=== PATIENT | male | born 1945 | race Caucasian/White ===

== ENCOUNTER 2021-12-08 09:38 | Outpatient (REF) | payer MEDICARE, SELFPAY ==
[2021-12-08 10:47] LABS: Appearance Urine CLEAR; Color Urine YELLOW; Glucose Urine UA NEG (NEG); Leukocyte Esterase Urine NEG (NEG); Nitrite Urine NEG (NEG); PH 6.5 (5.0-8.0); Specific Gravity - Urine 1.025 (1.005-1.025); Urine Blood NEG (NEG); Urine Ketones NEG (NEG); Urine Protein TRACE MG/DL (NEG-TRACE)
[2021-12-08 10:58] LABS: Alanine Aminotransferase 13 U/L (0-40); Albumin Level 4.3 g/dL (3.5-5.0); Alkaline Phosphatase 59 U/L (39-117); Anion Gap 13 (12-20); Aspartate Amino Transferase 15 U/L (5-37); Bilirubin Total 0.6 mg/dL (0.0-1.0); Blood Urea Nitrogen 26 mg/dL (9-16); Calcium 9.8 mg/dL (8.4-10.2); Carbon Dioxide 28 mmol/L (22-29); Chloride 105 mmol/L (96-108); Cholesterol 138 mg/dL; Estimated Glomerular Filt Rate 50; Glucose Fasting 142 mg/dL (60-99); HDL Cholesterol 43 mg/dL; LDL Cholesterol Calculated 80 mg/dl; Potassium 4.6 mmol/L (3.3-5.1); Sodium 141 mmol/L (135-145); Total Protein 7.2 g/dL (6.5-8.0); Triglycerides 76 mg/dL
[2021-12-08 11:01] LABS: Creatinine Urine 164.17 mg/dL; Microalbum/Creatinine Ratio Ur 10.3 ug/mg cr
[2021-12-08 11:21] LABS: TSH reflex Free T4 0.96 uIU/mL (0.32-4.0)
== END 2021-12-08 09:39 | disposition home or self-care (01) ==
LOC: HO.WFDLDS 09:38
PROVIDERS: Visit Provider Family Medicine
DX: Z00.00 Encounter for general adult medical examination without abnormal findings (principal); E11.9 Type 2 diabetes mellitus without complications; I10 Essential (primary) hypertension
CPT/HCPCS: 36415; 80053; 80061; 81003; 82043; 84443

== ENCOUNTER 2022-09-05 08:42 | Outpatient (REF) | payer MEDICARE, SELFPAY ==
[2022-09-05 12:03] LABS: MANUAL DIFF FLAG NO
[2022-09-05 12:04] LABS: Basophils Percent Auto 0.4 % (0-2); Eosinophils Absolute Auto 0.4 X10*3/uL (0.0-0.4); Hematocrit 40.8 % (42.0-52.0); Imm Gran Abs Auto 0.02 X10*3/uL (0.00-0.03); Imm Gran Pct Auto 0.2 % (0.0-0.4); Lymphocytes Absolute Auto 2.2 X10*3/uL (1.2-4.9); Lymphocytes Percent Auto 27.3 % (20-40); Mean Corpuscular HGB Conc 31.9 g/dl (31.0-36.0); Mean Corpuscular Volume 90.9 fL (80.0-98.0); Mean Platelet Volume 9.7 fL (9.4-12.4); Monocytes Absolute Auto 0.8 X10*3/uL (0.1-1.2); Monocytes Percent Auto 9.5 % (2-11); Neutrophils Absolute Auto 4.6 x10*3/uL (2.0-8.3); Neutrophils Percent Auto 57.6 % (45-73); Platelet Count 309 X10*3/uL (160-400); Red Blood Count 4.49 X10*6/uL (4.60-5.80); Red Cell Distribution Width 13.6 % (11.0-16.0)
[2022-09-05 12:34] LABS: Alanine Aminotransferase 12 U/L (0-40); Albumin Level 4.2 g/dL (3.5-5.0); Alkaline Phosphatase 57 U/L (39-117); Anion Gap 16 (12-20); Aspartate Amino Transferase 15 U/L (5-37); Bilirubin Total 0.3 mg/dL (0.0-1.0); Blood Urea Nitrogen 25 mg/dL (9-16); Carbon Dioxide 24 mmol/L (22-29); Chloride 106 mmol/L (96-108); Estimated Glomerular Filt Rate 52; Glucose Random 139 mg/dL (60-115); Potassium 5.3 mmol/L (3.3-5.1); Sodium 141 mmol/L (135-145); Total Protein 7.2 g/dL (6.5-8.0)
== END 2022-09-05 08:43 | disposition home or self-care (01) ==
LOC: HO.WFDLDS 08:42
PROVIDERS: Visit Provider Family Medicine
DX: Z01.818 Encounter for other preprocedural examination (principal)
CPT/HCPCS: 36415; 80053; 85025

== ENCOUNTER 2023-01-23 08:10 | Outpatient (REF) | payer MEDICARE, SELFPAY ==
[2023-01-23 11:45] LABS: Appearance Urine Clear; Color Urine Yellow; Glucose Urine UA Negative (Negative); Leukocyte Esterase Urine Negative (Negative); Nitrite Urine Negative (Negative); PH 5.5 (5.0-9.0); Urine Blood Negative (Negative); Urine Ketones Negative (Negative); Urine Protein Negative (Neg-Trace)
[2023-01-23 11:48] LABS: MANUAL DIFF FLAG NO
[2023-01-23 12:04] LABS: Basophils Absolute Auto 0.1 X10*3/uL (0.0-0.2); Basophils Percent Auto 0.6 % (0-2); Eosinophils Absolute Auto 0.3 X10*3/uL (0.0-0.4); Eosinophils Percent Auto 4.2 % (0-4); Hematocrit 37.9 % (42.0-52.0); Hemoglobin 12.4 g/dl (14.0-18.0); Imm Gran Abs Auto 0.02 X10*3/uL (0.00-0.03); Imm Gran Pct Auto 0.2 % (0.0-0.4); Lymphocytes Absolute Auto 2.1 X10*3/uL (1.2-4.9); Lymphocytes Percent Auto 26.2 % (20-40); Mean Corpuscular HGB Conc 32.7 g/dl (31.0-36.0); Mean Corpuscular Hemoglobin 29.5 pg (27.0-33.0); Mean Corpuscular Volume 90.2 fL (80.0-98.0); Mean Platelet Volume 9.4 fL (9.4-12.4); Monocytes Absolute Auto 0.7 X10*3/uL (0.1-1.2); Monocytes Percent Auto 8.1 % (2-11); Neutrophils Absolute Auto 4.9 x10*3/uL (2.0-8.3); Neutrophils Percent Auto 60.7 % (45-73); Platelet Count 288 X10*3/uL (160-400); White Blood Count 8.1 X10*3/uL (4.8-10.8)
[2023-01-23 12:09] LABS: Creatinine Urine 113.72 mg/dL
[2023-01-23 12:11] LABS: Microalbum/Creatinine Ratio Ur 6.1 ug/mg cr
[2023-01-23 12:47] LABS: Estimated Average Glucose 174 mg/dL; Hemoglobin A1c % 7.7 %
[2023-01-23 13:07] LABS: Prostate Specific Antigen Scr 0.92 ng/mL (<0.05-4.0); TSH reflex Free T4 1.09 uIU/mL (0.32-4.0)
[2023-01-23 13:08] LABS: Anion Gap 10 (12-20)
[2023-01-23 13:13] LABS: Alanine Aminotransferase 13 U/L (0-40); Albumin Level 4.1 g/dL (3.5-5.0); Alkaline Phosphatase 55 U/L (39-117); Aspartate Amino Transferase 15 U/L (5-37); Bilirubin Total 0.6 mg/dL (0.0-1.0); Blood Urea Nitrogen 23 mg/dL (9-16); Calcium 9.4 mg/dL (8.4-10.2); Carbon Dioxide 27 mmol/L (22-29); Chloride 108 mmol/L (96-108); Cholesterol 146 mg/dL; Estimated Glomerular Filt Rate 52; Glucose Fasting 139 mg/dL (60-99); HDL Cholesterol 40 mg/dL; LDL Cholesterol Calculated 85 mg/dl; Potassium 4.9 mmol/L (3.3-5.1); Sodium 140 mmol/L (135-145); Total Protein 6.8 g/dL (6.5-8.0); Triglycerides 107 mg/dL
== END 2023-01-23 08:11 | disposition home or self-care (01) ==
LOC: HO.WFDLDS 08:10
PROVIDERS: Visit Provider Family Medicine
DX: Z00.00 Encounter for general adult medical examination without abnormal findings (principal); Z12.5 Encounter for screening for malignant neoplasm of prostate; I10 Essential (primary) hypertension; R73.01 Impaired fasting glucose
CPT/HCPCS: 36415; 80053; 80061; 81003; 82043; 83036; 84153; 84443; 85025

== ENCOUNTER 2023-05-23 07:01 | Outpatient (REF) | payer MEDICARE, SELFPAY ==
[2023-05-23 11:33] LABS: MANUAL DIFF FLAG NO
[2023-05-23 11:52] LABS: Basophils Percent Auto 0.5 % (0-2); Eosinophils Absolute Auto 0.6 X10*3/uL (0.0-0.4); Hematocrit 37.4 % (42.0-52.0); Hemoglobin 11.9 g/dl (14.0-18.0); Imm Gran Abs Auto 0.02 X10*3/uL (0.00-0.03); Imm Gran Pct Auto 0.3 % (0.0-0.4); Immature Retic Fraction 11.6 % (2.3-13.4); Lymphocytes Absolute Auto 1.9 X10*3/uL (1.2-4.9); Lymphocytes Percent Auto 25.5 % (20-40); Mean Corpuscular HGB Conc 31.8 g/dl (31.0-36.0); Mean Corpuscular Hemoglobin 29.5 pg (27.0-33.0); Mean Corpuscular Volume 92.8 fL (80.0-98.0); Mean Platelet Volume 9.8 fL (9.4-12.4); Monocytes Absolute Auto 0.7 X10*3/uL (0.1-1.2); Neutrophils Absolute Auto 4.3 x10*3/uL (2.0-8.3); Neutrophils Percent Auto 56.7 % (45-73); Platelet Count 309 X10*3/uL (160-400); Red Blood Count 4.03 X10*6/uL (4.60-5.80); Red Cell Distribution Width 14.1 % (11.0-16.0); Retic HGB Equivalent 35.2 pg (30.0-35.0); Reticulocyte Percent 2.4 % (0.5-1.8); Reticulocytes Absolute 0.097 X10*6/uL (0.026-0.095); White Blood Count 7.5 X10*3/uL (4.8-10.8)
[2023-05-23 16:17] LABS: Folate 15.6 ng/mL (> or = 4.0); Vitamin B12 340 pg/mL (200-900)
[2023-05-23 20:08] LABS: Iron 57 mcg/dL (45-160); Percent Iron Saturation 19 % (15-50); Total Iron Binding Capacity 301 mcg/dL (228-428); Unsaturated Iron Binding 244 ug/dL
== END 2023-05-23 07:02 | disposition home or self-care (01) ==
LOC: HO.WFDLDS 07:01
PROVIDERS: Visit Provider Family Medicine
DX: Z00.00 Encounter for general adult medical examination without abnormal findings (principal); D64.9 Anemia, unspecified; E53.8 Deficiency of other specified B group vitamins
CPT/HCPCS: 36415; 82607; 82746; 83540; 85025; 85045

== ENCOUNTER 2023-05-29 16:21 | Outpatient (AMB) | payer MEDICARE, SELFPAY ==
--- NOTE | 2023-05-29 16:28 | A.OFFPC_ITS ---
Vital Signs 05/29/23 16:38 Height 5 ft 10 in Weight 180 lb 3 oz BMI 25.9 BP 132/78 Blood Pressure Location Lt brachial Position Sitting Respiration 14 Pulse 89 Pulse Source Pulse Oximeter Temp 98.9 F Temp Source Temporal Artery Scan Pulse Oximetry (%) 98 Oxygen Delivery Method Room Air Intake Visit Reasons: f/u diabetes and anemia Intake Note: Patient is here to follow up regarding diabetes and anemia. It Support Engineer Required: No Accompanied by: Self / Same As Patient Allergies lisinopril Allergy (Mild, Verified 05/29/23 16:36) Cough Tobacco use date assessed: 01/10/23 Fall risk assessment: No Falls in past year Last assessed Fall Risk: 05/29/23 Dental Screening Dental Screen Date: 05/29/23 Did you have a dental visit in the last 12 months?: Yes Did you have a dental problem in the last 6 months where you did not have access to dental care?: No Was dental information given to patient?: Patient has dentist HPI f/u diabetes and anemia HPI Details 78 y/o male presents to f/u diabetes and anemia. Had added Trulicity to his medication regimen 02/21/23. Last A1c 01/23/23 was 7.7%. A1c today 05/29/23 is 9.4%. Labs were drawn 05/23/23. Reviewed labs with pt. Ongoing mild anemia. Iron within normal limits. [facility] Medical History Type 2 diabetes mellitus without complications Surgical History No pertinent past surgical history Family History Mother Hyperlipidemia Father Brain cancer Social History Housing: House Patient Tobacco Use Status: Never used Tobacco e-Cigarette/Vaping Use: Never Used Second Hand Smoke Exposure: No service: No Current occupational status: retired Current occupational exposures/hazards: No Cognitive needs: No Hearing needs: No Vision needs: No Questionnaire Thrive Questionnaire Date Thrive assessed: 10/18/22 STEPHEN-7 AMB Questionnaire STEPHEN-7 Date STEPHEN - 7 assessed: 06/07/22 Source: Developed by Drs. Christo Woodard, Mesha Fong, Brando Winn and colleagues, with an educational josee from [employer] Review of Systems Const Denies chills, Denies fatigue, Denies fever(s), Denies headache(s) and Denies weakness ENT Denies dizziness and Denies headache(s) Card Denies dyspnea Resp Denies cough, Denies dyspnea, Denies wheezing and Denies other (shortness of breath) Musc Denies numbness and Denies tingling Neuro Denies dizziness, Denies headache(s), Denies numbness, Denies tingling and Denies weakness Psych Denies anxiety and Denies depression Endo Denies fatigue Aller/Immun Denies wheezing Physical exam (Primary Care) Vital Signs: Last Vital Signs Temp 98.9 F 05/29/23 16:38 Pulse 89 05/29/23 16:38 Resp 14 05/29/23 16:38 BP 132/78 05/29/23 16:38 Pulse Ox 98 05/29/23 16:38 Oxygen Delivery Method Room Air 05/29/23 16:38 BMI result Body Mass Index 25.9 Tobacco/Smoking Status: Tobacco use Status Tobacco use date assessed 01/10/23 05/29/23 16:30 Patient Tobacco Use Status Never used Tobacco 05/29/23 16:30 e-Cigarette/Vaping Use Never Used 05/29/23 16:30 Thrive Assessment: Date of Thrive Assessment Date Thrive assessed 10/18/22 05/29/23 16:30 Const General: well developed; No acute distress Nutritional Appearance: well nourished Orientation/consciousness: patient oriented x3 [facility] Head: Yes normocephalic and Yes atraumatic Eyes General: appearance normal, both eyes and all related structures Pupils: Equal, round and reactive pupils present EOM: EOMs intact bilaterally Resp Effort & Inspection: normal respiratory effort Neuro General: patient oriented x3 and gait normal Cranial nerves: Yes Equal, round and reactive pupils present Psych Affect: normal affect Assessment and Plan Assessment & Plan (1) Mild anemia: Code(s): D64.9 - Anemia, unspecified Plan: still has mild anemia denies bleeding will refer to Hematology Oncology (2) Diabetes: Code(s): E11.9 - Type 2 diabetes mellitus without complications Plan: A1c has continued to rise, now 9.4%. goal is less than 7.0% continue metformin and glipizide. Start Trulicity follow-up in 1 month (3) Poison stephany: Code(s): L23.7 - Allergic contact dermatitis due to plants, except food Plan: he can use hydrocortisone cream cool compresses and showers clean clothes and tools Medications: New dulaglutide 0.75 mg (0.5 mL) subcut QWEEK 2 mL 2RF 28 days Coding Level of Care Code Est Pt Level 4 (42328) Diagnoses Mild anemia D64.9 Diabetes E11.9 Poison stephany L23.7
[2023-05-29 16:38] VITALS: BP 132/78; PULSE 89; RESP 14; TEMP 37.2; O2SAT 98; BMI 25.9
== END 2023-05-29 17:10 | disposition home or self-care (01) ==
PROVIDERS: PCP Family Medicine; Visit Provider Family Medicine
DX: D64.9 Anemia, unspecified (principal); E11.9 Type 2 diabetes mellitus without complications; L23.7 Allergic contact dermatitis due to plants, except food
CPT/HCPCS: 99214

== ENCOUNTER → 2023-06-11 09:21 | Outpatient (BNVA) | payer SELFPAY | PROVIDERS: PCP Family Medicine; Visit Provider Physician Assistant Medical | DX: Z02.79 Encounter for issue of other medical certificate (principal) ==

== ENCOUNTER 2023-07-02 16:27 | Outpatient (AMB) | payer MEDICARE, SELFPAY ==
[2023-07-02 16:32] VITALS: BP 130/70; PULSE 87; RESP 16; O2SAT 97; BMI 26.0
--- NOTE | 2023-07-02 16:32 | MHC.PC.OV ---
Vital Signs 07/02/23 16:32 Height 5 ft 10 in Weight 181 lb 2 oz BMI 26.0 BP 130/70 Blood Pressure Location Lt brachial Position Sitting Respiration 16 Pulse 87 Pulse Source Pulse Oximeter Pulse Oximetry (%) 97 Oxygen Delivery Method Room Air Intake Visit Reasons: f/u diabetes Intake Note: Patient is here for follow up on his diabetes. Allergies lisinopril Allergy (Mild, Verified 07/02/23 16:33) Cough Tobacco use date assessed: 07/02/23 Fall risk assessment: No Falls in past year Last assessed Fall Risk: 07/02/23 Dental Screening Dental Screen Date: 07/02/23 Did you have a dental visit in the last 12 months?: No Did you have a dental problem in the last 6 months where you did not have access to dental care?: No Was dental information given to patient?: Patient declined HPI f/u diabetes HPI Details 78 y/o male presents to f/u diabetes. Last A1c had climbed to 9.4%. Had started him on Trulicity. A1c today 07/02/23 is 8.3. He continues metformin and glipizide but he reports he had been unable to do the Trulicity due to insurance issues. He reports he is up to date with his eye exams. He denies any neuropathy. [facility] Medical History Type 2 diabetes mellitus without complications Surgical History No pertinent past surgical history Family History Mother Hyperlipidemia Father Brain cancer Social History Housing: House Patient Tobacco Use Status: Never used Tobacco e-Cigarette/Vaping Use: Never Used Second Hand Smoke Exposure: No service: No Current occupational status: retired Current occupational exposures/hazards: No Cognitive needs: No Hearing needs: No Vision needs: No Questionnaire Thrive Questionnaire Date Thrive assessed: 10/18/22 STEPHEN-7 AMB Questionnaire STEPHEN-7 Date STEPHEN - 7 assessed: 06/07/22 Source: Developed by Drs. Christo Woodard, Mesha Fong, Brando Winn and colleagues, with an educational josee from [employer]. Physical exam (Primary Care) Vital Signs: Last Vital Signs Pulse 87 07/02/23 16:32 Resp 16 07/02/23 16:32 BP 130/70 07/02/23 16:32 Pulse Ox 97 07/02/23 16:32 Oxygen Delivery Method Room Air 07/02/23 16:32 BMI result Body Mass Index 26.0 Tobacco/Smoking Status: Tobacco use Status Tobacco use date assessed 07/02/23 07/02/23 16:43 Patient Tobacco Use Status Never used Tobacco 07/02/23 16:43 e-Cigarette/Vaping Use Never Used 07/02/23 16:43 Thrive Assessment: Date of Thrive Assessment Date Thrive assessed 10/18/22 07/02/23 16:43 Results AMB Hemoglobin A1c AMB Hemoglobin A1c 8.3 % Last Edit by Autumn Anthony CMA on 07/02/23 16:55 Results Reviewed Results Reviewed: Laboratory Last Values Hgb A1c (Clinic) 8.3 % (4.0-6.0) H 07/02/23 16:53 Assessment and Plan Assessment & Plan (1) Diabetes: Code(s): E11.9 - Type 2 diabetes mellitus without complications Plan: A1c improved from 9.4% to 8.3% on metformin and glipizide. Goal is less than 7.0% Significantly improved though he is still poorly controlled Currently will increase glipizide to 10 mg daily And continue metformin. Work at diabetic diet lower in sugars and starches. He was unable to get Dulaglutide (generic [facility]) due to insurance declining to pay for it. Will try other medications if he is not at goal with above regimen Orders: Orders AMB Hemoglobin A1c Today Z13.9 - Encounter for screening, unspecified Medications: Changed From glipizide ER 7.5 mg (1.5 x 5 mg) PO DAILY 30 days 45 tabs 2RF To glipizide ER 10 mg PO DAILY 30 tabs 2RF 30 days Refilled metformin 1000 mg AM, 500 mg midday, 1000 mg PM. orally 3 times a day; 225 tabs 2RF 90 days Discontinued dulaglutide Discontinued Reason: More recent result 0.75 mg (0.5 mL) subcut QWEEK 28 days 2 mL 2RF Coding Level of Care Code Est Pt Level 3 (64835) Diagnoses Diabetes E11.9
== END 2023-07-02 17:20 | disposition home or self-care (01) ==
PROVIDERS: PCP Family Medicine; Visit Provider Family Medicine
DX: E11.9 Type 2 diabetes mellitus without complications (principal)
CPT/HCPCS: 83036; 99213

== ENCOUNTER 2023-10-09 09:16 | Outpatient (AMB) | payer MEDICARE, SELFPAY ==
--- NOTE | 2023-10-09 09:32 | MHC.PC.OV ---
Vital Signs 10/09/23 09:33 Height 5 ft 10 in Weight 186 lb BMI 26.7 BP 150/70 H Blood Pressure Location Rt brachial Position Sitting Respiration 13 Pulse 96 Pulse Source Pulse Oximeter Pulse Oximetry (%) 97 Oxygen Delivery Method Room Air Intake Visit Reasons: f/u diabetes, ongoing cough Intake Note: Patient is here for a diabetic follow up and also have a cough x18 days. Patient reports he has no other symptoms. The cough is hard and aches his muscles from coughing. Laser/Electro Optics Technician Required: No Allergies lisinopril Allergy (Mild, Verified 10/09/23 09:37) Cough Tobacco use date assessed: 07/02/23 HPI f/u diabetes, ongoing cough HPI Details 78 y/o male presents to f/u diabetes. Last A1c 07/02/23 8.3%. A1c today 10/09/23 is 8.5%. He is on metformin, glipizide 10mg. He had been unable to obtain generic Trulicity due to insurance issues. Pt reports a cough x18 days. He denies any other symmptoms. [facility] Medical History Type 2 diabetes mellitus without complications Surgical History No pertinent past surgical history Family History Mother Hyperlipidemia Father Brain cancer Social History (Updated 10/09/23 @ 09:39 by Prerna Delgadillo CMA) Household Members: Spouse Housing: House Alcohol intake: current Alcohol intake frequency: a few times a month Alcohol type: wine Patient Tobacco Use Status: Never used Tobacco e-Cigarette/Vaping Use: Never Used Second Hand Smoke Exposure: No service: No Current occupational status: retired Current occupational exposures/hazards: No Sexual orientation: Unable to collect Gender identity: Unable to collect Cognitive needs: No Hearing needs: No Vision needs: No Questionnaire PHQ-9 Over the last 2 weeks, how often have you been bothered by any of the following problems? 1. Little interest or pleasure in doing things: not at all 2. Feeling down, depressed, or hopeless: not at all 3. Trouble falling or staying asleep, or sleeping too much: not at all 4. Feeling tired or having little energy: not at all 5. Poor appetite or overeating: not at all 6. Feeling bad about yourself - or that you are a failure or have let yourself or your family down: not at all 7. Trouble concentrating on things, such as reading the newspaper or watching television: not at all 8. Moving or speaking so slowly that other people could have noticed. Or the opposite - being so fidgety or restless that you have been moving around a lot more than usual: not at all 9. Thoughts that you would be better off or of hurting yourself in some way: not at all Total score: 0 Depression Screening Interpretation: Negative Depression Screening Done: Yes 55716 - PHQ-9 Billing: Yes Source: Developed by Drs. Christo Woodard, Mesha Fong, Brando Winn and colleagues, with an educational josee from [email or web address]. Thrive Questionnaire Date Thrive assessed: 10/18/22 AUDIT C Alcohol Use Questionnaire (AUDIT-C) 1. How often do you have a drink containing alcohol?: Monthly or less 2. How many drinks containing alcohol do you have on a typical day when you are drinking?: 1 or 2 3. How often do you have six or more drinks on one occasion?: Never Total Score: 1 STEPHEN-7 AMB Questionnaire STEPHEN-7 Date STEPHEN - 7 assessed: 10/09/23 Feeling nervous, anxious, or on edge: 0 = Not at all Not being able to stop or control worryin = Not at all Worrying too much about different things: 0 = Not at all Trouble relaxin = Not at all Being so restless that it is hard to sit still: 0 = Not at all Becoming easily annoyed or irritable: 0 = Not at all Feeling afraid as if something awful might happen: 0 = Not at all Total STEPHEN-7 score (0-4 normal; 5-9 mild; 10-14 moderate; 15-21 severe): 0 Source: Developed by Drs. Chrisot Woodard, Mesha Fong, Brando Winn and colleagues, with an educational josee from [email or web address]. STEPHEN-7 Assessment Billing STEPHEN-7 Assessment Tool: STEPHEN-7 Assessment 52958 Review of Systems Const Denies chills, Denies fatigue, Denies fever(s), Denies headache(s) and Denies weakness ENT Denies dizziness and Denies headache(s) Card Denies dyspnea Resp Reports cough, Denies dyspnea and Denies wheezing Musc Denies numbness and Denies tingling Neuro Denies dizziness, Denies headache(s), Denies numbness, Denies tingling and Denies weakness Psych Denies anxiety and Denies depression Endo Denies fatigue Aller/Immun Denies wheezing Physical exam (Primary Care) Vital Signs: Last Vital Signs Pulse 96 10/09/23 09:33 Resp 13 10/09/23 09:33 BP 150/70 H 10/09/23 09:33 Pulse Ox 97 10/09/23 09:33 Oxygen Delivery Method Room Air 10/09/23 09:33 BMI result Body Mass Index 26.7 Tobacco/Smoking Status: Tobacco use Status Tobacco use date assessed 07/02/23 10/09/23 09:40 Patient Tobacco Use Status Never used Tobacco 10/09/23 09:40 e-Cigarette/Vaping Use Never Used 10/09/23 09:40 PHQ-9: PHQ-9 Score PHQ-9: Total score 0 10/09/23 10:03 Depression Screening Interpretation: Negative Thrive Assessment: Date of Thrive Assessment Date Thrive assessed 10/18/22 10/09/23 09:40 Const General: well developed; No acute distress Nutritional Appearance: well nourished Orientation/consciousness: patient oriented x3 [facility] Head: Yes normocephalic and Yes atraumatic Eyes General: appearance normal, both eyes and all related structures Pupils: Equal, round and reactive pupils present EOM: EOMs intact bilaterally Resp Effort & Inspection: normal respiratory effort Auscultation: clear to auscultation bilaterally Cardio Rate: regular rate Rhythm: regular rhythm Heart sounds: S1 normal heart sound present, S2 normal heart sound present, no gallops, no murmurs and no rubs Neuro General: patient oriented x3 and gait normal Cranial nerves: Yes Equal, round and reactive pupils present Psych Affect: normal affect Results AMB Hemoglobin A1c AMB Hemoglobin A1c 8.5 % Last Edit by Prerna Delgadillo CMA on 10/09/23 09:49 Results Reviewed Results Reviewed: Laboratory Last Values Hgb A1c (Clinic) 8.5 % (4.0-6.0) H 10/09/23 09:48 Assessment and Plan Assessment & Plan (1) Diabetes: Code(s): E11.9 - Type 2 diabetes mellitus without complications Plan: Still?uncontrolled?on?metformin?and?increase?of?glipizide?at?last?visit. Insurance?did?not?cover?Trulicity Will?add?Januvia (2) Cough: Code(s): R05.9 - Cough, unspecified Plan: Cough?for?the?past?14?days.??Lungs?are?clear. Possible?allergen?or?irritant Try?humidified?air?and?Zyrtec Can?completely?rule?out?COVID/flu/RSV Swab?sent?to?lab (3) HTN (hypertension): Code(s): I10 - Essential (primary) hypertension Plan: Blood?pressure?is?high?today?but?patient?has?had?significant?cough No?changes?to?his?medication?regimen?today. Orders: Orders AMB Hemoglobin A1c Today Z13.9 - Encounter for screening, unspecified SARS-CoV2/FLU/RSV Today R05.9 - Cough, unspecified, Z20.822 - Contact with and (suspected) exposure to COVID-19 Medications: New sitagliptin phosphate (Januvia) 50 mg PO DAILY 30 tabs 2RF 30 days Coding Level of Care Code Est Pt Level 4 (33915) Diagnoses Diabetes E11.9 Cough R05.9 HTN (hypertension) I10 Additional Codes STEPHEN-7 Assessment Billing - STEPHEN-7 Assessment Tool: STEPHEN-7 Assessment [id number] ([id number])
[2023-10-09 09:33] VITALS: BP 150/70; PULSE 96; RESP 13; O2SAT 97; BMI 26.7
== END 2023-10-09 10:17 | disposition home or self-care (01) ==
PROVIDERS: PCP Family Medicine; Visit Provider Family Medicine
DX: E11.9 Type 2 diabetes mellitus without complications (principal); R05.9 Cough, unspecified; I10 Essential (primary) hypertension; Z13.9 Encounter for screening, unspecified
CPT/HCPCS: 83036; 99214

== ENCOUNTER 2023-10-09 10:19 | Outpatient (REF) | payer MEDICARE, SELFPAY ==
[2023-10-09 16:14] LABS: Influenza A PCR NEGATIVE (Negative); Influenza B PCR NEGATIVE (Negative); Resp Syncy Virus RNA Qual PCR NEGATIVE (Negative); SARS COV2 PCR INHOUSE NEGATIVE (Negative)
== END 2023-10-09 10:20 | disposition home or self-care (01) ==
LOC: HO.LAB 10:19
PROVIDERS: Visit Provider Family Medicine
DX: R05.9 Cough, unspecified (principal); Z20.822 Contact with and (suspected) exposure to COVID-19
CPT/HCPCS: 0241U

== ENCOUNTER 2024-01-29 10:28 | Outpatient (AMB) | payer MEDICARE, SELFPAY ==
--- NOTE | 2024-01-29 10:53 | A.OFFPC_ITS ---
Vital Signs 01/29/24 10:54 Height 5 ft 10 in Weight 181 lb 6 oz BMI 26.0 BP 142/80 H Blood Pressure Location Lt brachial Position Sitting Pulse 63 Pulse Source Pulse Oximeter Pulse Oximetry (%) 97 Oxygen Delivery Method Room Air Intake Visit Reasons: f/u diabetes Intake Note: Patient is here to follow up on diabetes, and hypertension. Patient would like to talk about Januvia prescription, and he is looking to get a discount from [employer]. Allergies lisinopril Allergy (Mild, Verified 01/29/24 10:57) Cough Tobacco use date assessed: 01/29/24 Fall risk assessment: No Falls in past year Last assessed Fall Risk: 01/29/24 Dental Screening Dental Screen Date: 01/29/24 Did you have a dental visit in the last 12 months?: No Did you have a dental problem in the last 6 months where you did not have access to dental care?: No Was dental information given to patient?: Patient declined HPI f/u diabetes HPI Details 79 y/o male presents to f/u diabetes. A1c today 01/29/24 is 8.9%. He is on glipizide 10mg, metformin, sitagliptin 50mg daily. Insurance had not covered Trulicity so had added Januvia last office visit. 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 Blood pressure today 142/80. He is on losartan 100mg daily. [facility] Medical History Type 2 diabetes mellitus without complications Surgical History No pertinent past surgical history Family History Mother Hyperlipidemia Father Brain cancer Social History Household Members: Spouse Housing: House Alcohol intake: current Alcohol intake frequency: a few times a month Alcohol type: wine Patient Tobacco Use Status: Never used Tobacco e-Cigarette/Vaping Use: Never Used Second Hand Smoke Exposure: No service: No Current occupational status: retired Current occupational exposures/hazards: No Sexual orientation: Unable to collect Gender identity: Unable to collect Cognitive needs: No Hearing needs: No Vision needs: No Questionnaire Thrive Questionnaire Date Thrive assessed: 10/18/22 STEPHEN-7 AMB Questionnaire STEPHEN-7 Date STEPHEN - 7 assessed: 10/09/23 Source: Developed by Drs. Christo Woodard, Mesha Fong, Brando Winn and colleagues, with an educational josee from [employer]. Review of Systems Const Denies chills, Denies fatigue, Denies fever(s), Denies headache(s) and Denies weakness ENT Denies dizziness and Denies headache(s) Card Denies dyspnea Resp Denies cough, Denies dyspnea, Denies wheezing and Denies other (shortness of breath) Musc Denies numbness and Denies tingling Neuro Denies dizziness, Denies headache(s), Denies numbness, Denies tingling and Denies weakness Psych Denies anxiety and Denies depression Endo Denies fatigue Aller/Immun Denies wheezing Physical exam (Primary Care) Vital Signs: Last Vital Signs Pulse 63 01/29/24 10:54 BP 142/80 H 01/29/24 10:54 Pulse Ox 97 01/29/24 10:54 Oxygen Delivery Method Room Air 01/29/24 10:54 BMI result Body Mass Index 26.0 Tobacco/Smoking Status: Tobacco use Status Tobacco use date assessed 01/29/24 01/29/24 11:02 Patient Tobacco Use Status Never used Tobacco 01/29/24 11:02 e-Cigarette/Vaping Use Never Used 01/29/24 11:02 Thrive Assessment: Date of Thrive Assessment Date Thrive assessed 10/18/22 01/29/24 11:02 Const General: well developed; No acute distress Nutritional Appearance: well nourished Orientation/consciousness: patient oriented x3 [facility] Head: Yes normocephalic and Yes atraumatic Eyes General: appearance normal, both eyes and all related structures Pupils: Equal, round and reactive pupils present EOM: EOMs intact bilaterally Resp Effort & Inspection: normal respiratory effort Neuro General: patient oriented x3 and gait normal Cranial nerves: Yes Equal, round and reactive pupils present Psych Affect: normal affect Assessment and Plan Assessment & Plan (1) Diabetes: Code(s): E11.9 - Type 2 diabetes mellitus without complications Plan: A1c?has?climbed?from?8.5%?to?8.9%.??Goal?is?less?than?7.0% He?is?taking?metformin?and?glipizide?and?I?had?sent?a?prescription?for?Januvia?a t?his?last?visit. He?says?he?was?unable?to?get?this?medication?and?has?been?dealing?with?paperwork ?to?do?so.??He?says?this?is?underway?and?he?should?have?his?medications?soon. He?will?let?me?know?if?he?is?unable?to?get?the?medication He?will?return?in?1?month?for?closer?follow- up?and?I?have?asked?him?to?check?his?blood?sugars?in?the?mornings?so?we?can?adju st?his?medication?if?needed (2) HTN (hypertension): Code(s): I10 - Essential (primary) hypertension Plan: Blood?pressure?running?consistently?high Increasing?losartan?from?100?mg?daily?to?150?mg?daily Will?follow-up?in?a?month Orders: Orders AMB Hemoglobin A1c Today Z13.9 - Encounter for screening, unspecified Medications: Changed From losartan 100 mg PO DAILY 1 month 30 tabs 2RF I10 - Essential (primary) hypertension To losartan 150 mg (1.5 x 100 mg) PO DAILY 90 days 135 tabs 2RF I10 - Essential (primary) hypertension Coding Level of Care Code Est Pt Level 3 (11933) Diagnoses Diabetes E11.9 HTN (hypertension) I10
[2024-01-29 10:54] VITALS: BP 142/80; PULSE 63; O2SAT 97; BMI 26.0
== END 2024-01-29 11:36 | disposition home or self-care (01) ==
PROVIDERS: PCP Family Medicine; Visit Provider Family Medicine
DX: E11.9 Type 2 diabetes mellitus without complications (principal); I10 Essential (primary) hypertension
CPT/HCPCS: 99213

== ENCOUNTER 2024-03-04 09:35 | Outpatient (AMB) | payer MEDICARE, SELFPAY ==
--- NOTE | 2024-03-04 09:47 | MHC.PC.OV ---
Vital Signs 03/04/24 09:48 Height 5 ft 10 in Weight 191 lb 6 oz BMI 27.5 BP 130/80 Blood Pressure Location Lt brachial Position Sitting Pulse 85 Pulse Source Pulse Oximeter Pulse Oximetry (%) 97 Oxygen Delivery Method Room Air Intake Visit Reasons: f/u diabetes - see comments Intake Note: Patient is here to follow up on his diabetes. Allergies lisinopril Allergy (Mild, Verified 03/04/24 09:51) Cough Medication List - Last Reviewed 03/04/24 by Autumn Anthony CMA blood pressure monitor Monitor blood pressure as directed blood sugar diagnostic ([employer] Verio test strips) As directed blood-glucose meter ([employer] Verio Meter) As directed to test blood sugar, 999 days glipizide ER 10 mg PO DAILY 90 days lancets ([employer] UltraSoft Lancets) DX: E11.9, test blood sugar once a day, 90 days losartan 100 mg PO DAILY 90 days losartan 50 mg PO DAILY 90 days metformin 1000 mg AM, 500 mg midday, 1000 mg PM. orally 3 times a day; 90 days simvastatin 40 mg PO DAILY sitagliptin phosphate (Januvia) 50 mg PO DAILY 30 days Tobacco use date assessed: 03/04/24 Fall risk assessment: No Falls in past year Last assessed Fall Risk: 03/04/24 Dental Screening Dental Screen Date: 01/29/24 HPI f/u diabetes - see comments HPI Details 79 y/o male presents to f/u diabetes. Last A1c 10/09/23 8.5%. A1c had risen but it turns out he has not had Januvia as he needed to deal with paperwork to obtain this. Has been taking metformin and glipizide as prescribed. Had increased losartan from 100mg daily to 150mg daily last office visit. A1c today 03/04/24 8.1%. He reports he has never received his Januvia. [facility] Medical History Type 2 diabetes mellitus without complications Surgical History No pertinent past surgical history Family History Mother Hyperlipidemia Father Brain cancer Social History Household Members: Spouse Housing: House Alcohol intake: current Alcohol intake frequency: a few times a month Alcohol type: wine Patient Tobacco Use Status: Never used Tobacco e-Cigarette/Vaping Use: Never Used Second Hand Smoke Exposure: No service: No Current occupational status: retired Current occupational exposures/hazards: No Sexual orientation: Unable to collect Gender identity: Unable to collect Cognitive needs: No Hearing needs: No Vision needs: No Questionnaire Thrive Questionnaire Date Thrive assessed: 10/18/22 STEPHEN-7 AMB Questionnaire STEPHEN-7 Date STEPHEN - 7 assessed: 10/09/23 Source: Developed by Drs. Christo Woodard, Mesha Fong, Brando Winn and colleagues, with an educational josee from [employer]. Review of Systems Const Denies chills, Denies fatigue, Denies fever(s), Denies headache(s) and Denies weakness ENT Denies dizziness and Denies headache(s) Card Denies chest pain, Denies lightheadedness, Denies dyspnea and Denies other (Palpitations) Resp Denies cough, Denies dyspnea, Denies wheezing and Denies other ( shortness of breath) Musc Denies numbness and Denies tingling Neuro Denies dizziness, Denies headache(s), Denies numbness, Denies tingling, Denies paresthesias and Denies weakness Psych Denies anxiety and Denies depression Endo Denies fatigue Aller/Immun Denies wheezing Physical exam (Primary Care) Vital Signs: Last Vital Signs Pulse 85 03/04/24 09:48 BP 130/80 03/04/24 09:48 Pulse Ox 97 03/04/24 09:48 Oxygen Delivery Method Room Air 03/04/24 09:48 BMI result Body Mass Index 27.5 Tobacco/Smoking Status: Tobacco use Status Tobacco use date assessed 03/04/24 03/04/24 09:58 Patient Tobacco Use Status Never used Tobacco 03/04/24 09:58 e-Cigarette/Vaping Use Never Used 03/04/24 09:58 Thrive Assessment: Date of Thrive Assessment Date Thrive assessed 10/18/22 03/04/24 09:58 Const General: no acute distress and well developed Nutritional Appearance: well nourished Orientation/consciousness: patient oriented x3 HENMT Head: Yes normocephalic and Yes atraumatic Eyes General: appearance normal, both eyes and all related structures Pupils: Equal, round and reactive pupils present EOM: EOMs intact bilaterally Resp Effort & Inspection: normal respiratory effort Auscultation: clear to auscultation bilaterally Cardio Rate: regular rate Rhythm: regular rhythm Heart sounds: S1 normal heart sound present, S2 normal heart sound present, no gallops, no murmurs and no rubs Neuro General: patient oriented x3 and gait normal Cranial nerves: Yes Equal, round and reactive pupils present Psych Affect: normal affect Results AMB Hemoglobin A1c AMB Hemoglobin A1c 8.1 % Last Edit by Autumn Anthony CMA on 03/04/24 10:06 Assessment and Plan Assessment & Plan (1) Diabetes: Code(s): E11.9 - Type 2 diabetes mellitus without complications Plan: A1c?improved?to?8.1%?but?is?still?quite?high/uncontrolled. Goal?is?less?than?7.0% He?is?still?not?been?able?to?acquire?Januvia. He?will?continue?metformin Increasing?his?glipizide?ER?10?mg?to?20?mg?daily Encouraged?him?to?test?his?blood?sugars.??He?says?he?is?lost?his?meter?so?he?will?try?to?get?another. (2) HTN (hypertension): Code(s): I10 - Essential (primary) hypertension Plan: Blood?pressure?is?controlled?on?losartan?150?mg?daily Continue?current?medication Orders: Orders AMB Hemoglobin A1c Today Z13.9 - Encounter for screening, unspecified Medications: Changed From glipizide ER 10 mg PO DAILY 90 days 90 tabs 2RF To glipizide ER 10 mg PO BID 90 days 180 tabs 2RF Coding Level of Care Code Est Pt Level 3 (95366) Diagnoses Diabetes E11.9 HTN (hypertension) I10
[2024-03-04 09:48] VITALS: BP 130/80; PULSE 85; O2SAT 97; BMI 27.5
== END 2024-03-04 10:17 | disposition home or self-care (01) ==
PROVIDERS: PCP Family Medicine; Visit Provider Family Medicine
DX: E11.9 Type 2 diabetes mellitus without complications (principal); I10 Essential (primary) hypertension
CPT/HCPCS: 83036; 99213

== ENCOUNTER 2024-04-21 08:36 | Outpatient (AMB) | payer MEDICARE, SELFPAY ==
[2024-04-21 08:45] VITALS: BP 126/72; PULSE 76; O2SAT 97; BMI 34.4
--- NOTE | 2024-04-21 08:45 | A.OFFPC_ITS ---
Vital Signs 04/21/24 08:45 Height 5 ft 1 in Weight 182 lb 2 oz BMI 34.4 BP 126/72 Blood Pressure Location Lt brachial Position Sitting Pulse 76 Pulse Source Pulse Oximeter Pulse Oximetry (%) 97 Oxygen Delivery Method Room Air Intake Visit Reasons: f/u diabetes - needs urine microal/crea ratio Intake Note: Patient is here for follow up on diabetes Allergies lisinopril Allergy (Mild, Verified 04/21/24 08:47) Cough Medication List - Last Reconciled 04/21/24 by Trey Jarvis MD blood pressure monitor Monitor blood pressure as directed blood sugar diagnostic ([employer] Verio test strips) As directed blood-glucose meter ([employer] Verio Meter) As directed to test blood sugar, 999 days glipizide ER 10 mg PO BID 90 days lancets ([employer] UltraSoft Lancets) DX: E11.9, test blood sugar once a day, 90 days losartan 100 mg PO DAILY 90 days losartan 50 mg PO DAILY 90 days metformin 1000 mg AM, 500 mg midday, 1000 mg PM. orally 3 times a day; 90 days simvastatin 40 mg PO DAILY sitagliptin phosphate (Januvia) 50 mg PO DAILY 30 days Tobacco use date assessed: 03/04/24 Fall risk assessment: No Falls in past year Last assessed Fall Risk: 04/21/24 Dental Screening Dental Screen Date: 01/29/24 HPI f/u diabetes - needs urine microal/crea ratio HPI Details 79 y/o male presents to f/u diabetes. Last A1c 03/04/24 8.1%. He is on glipizide 10mg b.i.d, metformin, Januvia 50mg. He notes he had just gotten his Januvia last Saturday. Blood pressure today 126/72. He is on losartan. [facility] Medical History Type 2 diabetes mellitus without complications Surgical History No pertinent past surgical history Family History Mother Hyperlipidemia Father Brain cancer Social History Household Members: Spouse Housing: House Alcohol intake: current Alcohol intake frequency: a few times a month Alcohol type: wine Patient Tobacco Use Status: Never used Tobacco e-Cigarette/Vaping Use: Never Used Second Hand Smoke Exposure: No service: No Current occupational status: retired Current occupational exposures/hazards: No Sexual orientation: Unable to collect Gender identity: Unable to collect Cognitive needs: No Hearing needs: No Vision needs: No Questionnaire Thrive Questionnaire Date Thrive assessed: 10/18/22 STEPHEN-7 AMB Questionnaire STEPHEN-7 Date STEPHEN - 7 assessed: 10/09/23 Source: Developed by Drs. Christo Woodard, Mesha Fong, Brando Winn and colleagues, with an educational josee from [employer]. Review of Systems Const Denies chills, Denies fatigue, Denies fever(s), Denies headache(s) and Denies weakness ENT Denies dizziness and Denies headache(s) Card Denies dyspnea Resp Denies cough, Denies dyspnea, Denies wheezing and Denies other (shortness of breath) Musc Denies numbness and Denies tingling Neuro Denies dizziness, Denies headache(s), Denies numbness, Denies tingling and Denies weakness Psych Denies anxiety and Denies depression Endo Denies fatigue Aller/Immun Denies wheezing Physical exam (Primary Care) Vital Signs: Last Vital Signs Pulse 76 04/21/24 08:45 BP 126/72 04/21/24 08:45 Pulse Ox 97 04/21/24 08:45 Oxygen Delivery Method Room Air 04/21/24 08:45 BMI result Body Mass Index 34.4 Tobacco/Smoking Status: Tobacco use Status Tobacco use date assessed 03/04/24 04/21/24 08:52 Patient Tobacco Use Status Never used Tobacco 04/21/24 08:52 e-Cigarette/Vaping Use Never Used 04/21/24 08:52 Thrive Assessment: Date of Thrive Assessment Date Thrive assessed 10/18/22 04/21/24 08:52 Const General: well developed; No acute distress Nutritional Appearance: well nourished Orientation/consciousness: patient oriented x3 HENMT Head: Yes normocephalic and Yes atraumatic Eyes General: appearance normal, both eyes and all related structures Pupils: Equal, round and reactive pupils present EOM: EOMs intact bilaterally Resp Effort & Inspection: normal respiratory effort Auscultation: clear to auscultation bilaterally Cardio Rate: regular rate Rhythm: regular rhythm Heart sounds: S1 normal heart sound present, S2 normal heart sound present, no gallops, no murmurs and no rubs Skin Other: 1cm melanotic lesion on the R side of the base of his neck with irregular borders, irregular color and growth Large 1.25cm melanotic lesion of L forehead Neuro General: patient oriented x3 and gait normal Cranial nerves: Yes Equal, round and reactive pupils present Psych Affect: normal affect Assessment and Plan Assessment & Plan (1) Diabetes: Code(s): E11.9 - Type 2 diabetes mellitus without complications Plan: A1c?was?8.1%?at?last?visit?and?now?8.0%; patient?just?received?his?Januvia?4?days?ago.??He?continues?wit h?metformin?and?glipizide?as?well. Goal?is?less?than?7.0% Will?have?him?return?in?2?months?for?follow-up Continue?current?medication?regimen Encouraged?diabetic?diet?and?exercise (2) HTN (hypertension): Code(s): I10 - Essential (primary) hypertension Plan: Blood?pressure?is?controlled.??Goal?is?less?than?140/90 Continue?current?medication?regimen (3) Neoplasm of uncertain behavior of skin: Code(s): D48.5 - Neoplasm of uncertain behavior of skin Plan: Patient?has?large?melanotic?lesion?at?the?right?side?of?the?base?of?his?neck?and ?also?left?forehead. Referred?to?Dermatology Orders: Orders AMB Hemoglobin A1c Today Z13.9 - Encounter for screening, unspecified Lipid Panel Today Z00.00 - Encounter for general adult medical examination without abnormal findings Microalbumin, Random (w Creat) Today I10 - Essential (primary) hypertension Prostate Specific Antigen Scr Today Z12.5 - Encounter for screening for malignant neoplasm of prostate Comprehensive [place]. Panel Fast Today Z00.00 - Encounter for general adult medical examination without abnormal findings Complete Blood Count Auto Diff Today Z00.00 - Encounter for general adult medical examination without abnormal findings TSH reflex Free T4 Today Z00.00 - Encounter for general adult medical examination without abnormal findings UA and rflx microscopic Today Z00.00 - Encounter for general adult medical examination without abnormal findings Referrals Dermatology Referral D48.5 - Neoplasm of uncertain behavior of skin Coding Level of Care Code Est Pt Level 3 (51801) Diagnoses Diabetes E11.9 HTN (hypertension) I10 Neoplasm of uncertain behavior of skin D48.5
== END 2024-04-21 09:13 | disposition home or self-care (01) ==
PROVIDERS: PCP Family Medicine; Visit Provider Family Medicine
DX: E11.9 Type 2 diabetes mellitus without complications (principal); I10 Essential (primary) hypertension; D48.5 Neoplasm of uncertain behavior of skin
CPT/HCPCS: 83036; 99213

== ENCOUNTER 2024-04-21 12:02 | Outpatient (REF) | payer MEDICARE, SELFPAY ==
[2024-04-21 12:15] LABS: Appearance Urine Clear; Color Urine Yellow; Glucose Urine UA 100 mg/dL (Negative); Leukocyte Esterase Urine Negative (Negative); Nitrite Urine Negative (Negative); PH 5.5 (5.0-9.0); Specific Gravity - Urine 1.025 (1.005-1.025); Urine Blood Negative (Negative); Urine Ketones Trace mg/dL (Negative); Urine Protein Negative (Neg-Trace)
[2024-04-21 12:52] LABS: Creatinine Urine 148.04 mg/dL; Microalbum/Creatinine Ratio Ur 8.7 ug/mg cr (<30)
== END 2024-04-21 12:03 | disposition home or self-care (01) ==
LOC: HO.LNP 12:02
PROVIDERS: Visit Provider Family Medicine
DX: Z00.00 Encounter for general adult medical examination without abnormal findings (principal); I10 Essential (primary) hypertension
CPT/HCPCS: 81003; 82043; 82570

== ENCOUNTER 2024-07-16 07:37 | Outpatient (REF) | payer MEDICARE, SELFPAY ==
[2024-07-16 11:12] LABS: MANUAL DIFF FLAG NO
[2024-07-16 11:33] LABS: Basophils Percent Auto 0.5 % (0-2); Eosinophils Absolute Auto 0.3 X10*3/uL (0.0-0.4); Eosinophils Percent Auto 3.2 % (0-4); Hematocrit 38.6 % (42.0-52.0); Hemoglobin 12.9 g/dl (14.0-18.0); Imm Gran Abs Auto 0.02 X10*3/uL (0.00-0.03); Imm Gran Pct Auto 0.2 % (0.0-0.4); Lymphocytes Percent Auto 23.9 % (20-40); Mean Corpuscular HGB Conc 33.4 g/dl (31.0-36.0); Mean Corpuscular Hemoglobin 30.7 pg (27.0-33.0); Mean Corpuscular Volume 91.9 fL (80.0-98.0); Mean Platelet Volume 9.4 fL (9.4-12.4); Monocytes Absolute Auto 0.8 X10*3/uL (0.1-1.2); Monocytes Percent Auto 9.4 % (2-11); Neutrophils Absolute Auto 5.3 x10*3/uL (2.0-8.3); Neutrophils Percent Auto 62.8 % (45-73); Platelet Count 313 X10*3/uL (160-400); Red Cell Distribution Width 13.9 % (11.0-16.0); White Blood Count 8.4 X10*3/uL (4.8-10.8)
[2024-07-16 11:45] LABS: Creatinine Urine 179.46 mg/dL; Microalbum/Creatinine Ratio Ur 11.1 ug/mg cr (<30)
[2024-07-16 11:57] LABS: Prostate Specific Antigen Scr 1.03 ng/mL (<0.05-4.0)
[2024-07-16 12:10] LABS: Alanine Aminotransferase 12 U/L (0-40); Albumin Level 4.4 g/dL (3.5-5.0); Alkaline Phosphatase 61 U/L (39-117); Anion Gap 12 (12-20); Aspartate Amino Transferase 16 U/L (5-37); Bilirubin Total 0.5 mg/dL (0.0-1.0); Blood Urea Nitrogen 26 mg/dL (9-16); Calcium 9.9 mg/dL (8.4-10.2); Carbon Dioxide 26 mmol/L (22-29); Chloride 105 mmol/L (96-108); Cholesterol 137 mg/dL (<200); Estimated Glomerular Filt Rate 43; Glucose Fasting 145 mg/dL (60-99); HDL Cholesterol 42 mg/dL (>40); LDL Cholesterol Calculated 78 mg/dL (<100); Potassium 4.4 mmol/L (3.3-5.1); Sodium 139 mmol/L (135-145); TSH reflex Free T4 1.32 uIU/mL (0.32-4.0); Total Protein 7.7 g/dL (6.5-8.0); Triglycerides 88 mg/dL (<150)
== END 2024-07-16 07:38 | disposition home or self-care (01) ==
LOC: HO.WFDLDS 07:37
PROVIDERS: Visit Provider Family Medicine
DX: Z00.00 Encounter for general adult medical examination without abnormal findings (principal); I10 Essential (primary) hypertension; Z12.5 Encounter for screening for malignant neoplasm of prostate
CPT/HCPCS: 36415; 80053; 80061; 82043; 82570; 84153; 84443; 85025

== ENCOUNTER 2024-07-23 08:07 | Outpatient (AMB) | payer MEDICARE, SELFPAY ==
--- NOTE | 2024-07-23 08:12 | A.OFFPC_ITS ---
Vital Signs 07/23/24 08:17 07/23/24 08:25 Height 5 ft 10 in Weight 189 lb 2 oz BMI 27.1 BP 154/84 H 142/86 H Blood Pressure Location Lt brachial Lt brachial Position Sitting Sitting Respiration 14 Pulse 80 Pulse Source Pulse Oximeter Pulse Oximetry (%) 97 Oxygen Delivery Method Room Air Intake Visit Reasons: Physical/Discuss labs Intake Note: Physical. Lab results. Allied Health Teacher Required: No Allergies lisinopril Allergy (Mild, Verified 07/23/24 08:17) Cough Medication List - Last Reconciled 07/23/24 by Evy Junior PA-C blood pressure monitor Monitor blood pressure as directed blood sugar diagnostic ([employer] Verio test strips) As directed blood-glucose meter ([employer] Verio Meter) As directed to test blood sugar, 999 days glipizide ER 10 mg PO BID 90 days lancets ([employer] UltraSoft Lancets) DX: E11.9, test blood sugar once a day, 90 days losartan 100 mg PO DAILY 90 days losartan 50 mg PO DAILY 90 days metformin 1000 mg AM, 500 mg midday, 1000 mg PM. orally 3 times a day; 90 days simvastatin 40 mg PO DAILY sitagliptin phosphate (Januvia) 50 mg PO DAILY 30 days Tobacco use date assessed: 07/23/24 Fall risk assessment: No Falls in past year Last assessed Fall Risk: 07/23/24 Dental Screening Dental Screen Date: 07/23/24 Did you have a dental visit in the last 12 months?: Yes Did you have a dental problem in the last 6 months where you did not have access to dental care?: No Was dental information given to patient?: Patient has dentist HPI Physical/Discuss labs HPI Details Patient is a 79-year-old male with a significant past medical history of uncontrolled type 2 diabetes, chronic kidney disease, hyperlipidemia and hypertension presenting today to review labs. CV: Blood pressure today in the office is 142/86. He is currently on losartan 150 mg daily. Cholesterol is managed with simvastatin 40 mg. No myalgias. Last LFTs and lipids WNL. Endo: His last A1c was 8. He is on glipizide 10 mg twice a day, metformin 1000 mg twice a day, Januvia 50 mg daily. -Januvia is too expensive. -he was diagnosed 4 years ago. No fam hx of dm -eye exam last week -denies any hyper or hypoglycemic events . He felt low 2 years ago and treated it with oj. -never had diabetic education Nephro: Does not follow with Nephrology. Avoid NSAIDs. Heme: mild anemia for years, stable. Colonoscopy: 2003 per pt [facility] Medical History Type 2 diabetes mellitus without complications Surgical History No pertinent past surgical history Family History Mother Hyperlipidemia Father Brain cancer Social History Household Members: Spouse Housing: House Alcohol intake: current Alcohol intake frequency: a few times a month Alcohol type: wine Patient Tobacco Use Status: Never used Tobacco e-Cigarette/Vaping Use: Never Used Second Hand Smoke Exposure: No service: No Current occupational status: retired Current occupational exposures/hazards: No Sexual orientation: Unable to collect Gender identity: Unable to collect Cognitive needs: No Hearing needs: No Vision needs: No Questionnaire PHQ-9 Over the last 2 weeks, how often have you been bothered by any of the following problems? 1. Little interest or pleasure in doing things: not at all 2. Feeling down, depressed, or hopeless: not at all 3. Trouble falling or staying asleep, or sleeping too much: not at all 4. Feeling tired or having little energy: not at all 5. Poor appetite or overeating: not at all 6. Feeling bad about yourself - or that you are a failure or have let yourself or your family down: not at all 7. Trouble concentrating on things, such as reading the newspaper or watching television: not at all 8. Moving or speaking so slowly that other people could have noticed. Or the opposite - being so fidgety or restless that you have been moving around a lot more than usual: not at all 9. Thoughts that you would be better off or of hurting yourself in some way: not at all Total score: 0 Depression Screening Interpretation: Negative Depression Screening Done: Yes 42787 - PHQ-9 Billing: Yes Source: Developed by David Thomaset B.W. Ajit, Brando Winn and colleagues, with an educational josee from [employer]. Thrive Questionnaire Date Thrive assessed: 07/23/24 I am a: Patient What is your living situation today?: I have a steady place to live Within the past 12 months, did the food you bought not last and you didn't have the money to get more?: Never true Within the past 12 months, did you worry whether your food would run out before you got money to buy more?: Never true Do you have trouble paying for medicines?: No Do you have trouble getting transportation to medical appointments?: No Do you have trouble paying your heating and electricity bill?: No Do you have trouble taking care of your child, family member or friend?: No Do you have trouble with day-to-day activities such as bathing, preparing meals, shopping, managing finances, etc.?: No Are you currently unemployed and looking for a job?: Yes Are you interested in more education?: No Please select the resources that you would like help with: Paying for medicine and Job search/training Currently or been in a relationship where the following occur: No concerns reported THRIVE Score: 0 AUDIT C Alcohol Use Questionnaire (AUDIT-C) 1. How often do you have a drink containing alcohol?: Monthly or less 2. How many drinks containing alcohol do you have on a typical day when you are drinking?: 1 or 2 3. How often do you have six or more drinks on one occasion?: Never Total Score: 1 Score Reviewed/Action Taken: Yes STEPHEN-7 AMB Questionnaire STEPHEN-7 Date STEPHEN - 7 assessed: 07/23/24 Feeling nervous, anxious, or on edge: 0 = Not at all Not being able to stop or control worryin = Several days Worrying too much about different things: 0 = Not at all Trouble relaxin = Not at all Being so restless that it is hard to sit still: 0 = Not at all Becoming easily annoyed or irritable: 0 = Not at all Feeling afraid as if something awful might happen: 0 = Not at all Total STEPHEN-7 score (0-4 normal; 5-9 mild; 10-14 moderate; 15-21 severe): 1 Source: Developed by Mesha Thomas Ajit, Brando Winn and colleagues, with an educational josee from [employer]. STEPHEN-7 Assessment Billing STEPHEN-7 Assessment Tool: STEPHEN-7 Assessment 37899 Physical exam (Primary Care) Vital Signs: Last Vital Signs Pulse 80 07/23/24 08:17 Resp 14 07/23/24 08:17 BP 154/84 H 07/23/24 08:17 Pulse Ox 97 07/23/24 08:17 Oxygen Delivery Method Room Air 07/23/24 08:17 BMI result Body Mass Index 27.1 Tobacco/Smoking Status: Tobacco use Status Tobacco use date assessed 07/23/24 07/23/24 08:19 Patient Tobacco Use Status Never used Tobacco 07/23/24 08:15 e-Cigarette/Vaping Use Never Used 07/23/24 08:15 PHQ-9: PHQ-9 Score PHQ-9: Total score 0 07/23/24 08:23 Depression Screening Interpretation: Negative Thrive Assessment: Date of Thrive Assessment Date Thrive assessed 07/23/24 07/23/24 08:23 Currently or been in a relationship where the following occur: No concerns reported Const Orientation/consciousness: patient oriented x3 HENMT Ears: hearing grossly normal bilaterally and TM's normal bilaterally General nose exam: No nasal polyps present Face and sinus: Yes sinuses nontender Mouth: Normal oral and palatal mucosa present Eyes Pupils: Equal, round and reactive pupils present EOM: EOMs intact bilaterally Neck Neck: Yes full ROM and Yes no lymphadenopathy Thyroid: Thyroid normal Chest Chest palpation & inspection: normal inspection of the chest Resp Auscultation: clear to auscultation bilaterally Cardio Rate: regular rate Rhythm: regular rhythm Heart sounds: S1 normal heart sound present and S2 normal heart sound present Peripheral pulses: Peripheral pulses 2+ throughout GI Other: Soft, nontender Auscultation: normal bowel sounds Rectal Exam - Male: Yes deferred General: Yes no CVA tenderness Back/Spine/Pelvis Other: Nontender Back: no CVA tenderness Skin General skin exam: no rashes or lesions noted Neuro General: patient oriented x3, gait normal, CN's II-XI intact bilaterally, normal sensation to monofilament and deep tendon reflexes 2+ bilaterally Cranial nerves: Yes Equal, round and reactive pupils present Motor exam (neuro): 5/5 motor strength present throughout Sensory Exam: double simultaneous stimulation for sensation normal Coordination: [id number] test normal and Romberg test negative Extrem General: Yes normal to inspection and Yes full ROM Psych Affect: normal affect Attitude: cooperative Thought process: Normal thought process present Thought content: Normal thought content present Insight: Good insight present (Psych) Judgement: Good judgement present (Psych) Results Reviewed Results Reviewed: Laboratory Tests 04/21/24 07/16/24 07/16/24 09:10 07:39 07:45 Sodium 139 Potassium 4.4 Chloride 105 Carbon Dioxide 26 Anion Gap 12 BUN 26 H Creatinine 1.57 H Estimated GFR 43 Fasting Glucose 145 H Hgb A1c (Clinic) 8.0 H Calcium 9.9 Triglycerides 88 Cholesterol 137 LDL Cholesterol, Calc 78 HDL Cholesterol 42 PSA Screen 1.03 TSH 1.32 Urine Creatinine 179.46 Urine Microalbumin 20.0 Microalb/Creat Ratio 11.1 Assessment and Plan Assessment & Plan (1) HTN (hypertension): Code(s): I10 - Essential (primary) hypertension Qualifiers: Hypertension type: primary hypertension Qualified Code(s): I10 - Essential (primary) hypertension Plan: losartan 100 mg. start amlodipine 5 mg. d/c losartan 50 mg. (2) Diabetes type 2, uncontrolled: Code(s): E11.65 - Type 2 diabetes mellitus with hyperglycemia Qualifiers: Glycemic state: with hyperglycemia Qualified Code(s): E11.65 - Type 2 diabetes mellitus with hyperglycemia Plan: januvia is too expensive. will d/c januvia today. will start jardiance. he will let me know if it is too costly. discussed risks/benefits and adverse effects. will do short term follow up and labs prior to appointment referral to parent educator rules 15s discussed. (3) Chronic kidney disease, stage 3 unspecified: Code(s): N18.30 - Chronic kidney disease, stage 3 unspecified Qualifiers: Chronic kidney disease stage 3 subtype: stage 3b (GFR 30-44) Qualified Code(s): N18.32 - Chronic kidney disease, stage 3b Plan: referral to nephrology. on an arb. start jardiance discussed importance of bp control and dm control (4) Anemia: Code(s): D64.9 - Anemia, unspecified Qualifiers: Anemia type: unspecified type Qualified Code(s): D64.9 - Anemia, u nspecified Plan: believes colonoscopy is utd and was wnl. stable. labs ordered Orders: Orders Comprehensive Beecher. Panel Fast Today D64.9 - Anemia, unspecified, E11.65 - Type 2 diabetes mellitus with hyperglycemia, N18.30 - Chronic kidney disease, stage 3 unspecified IRON PROFILE Today D64.9 - Anemia, unspecified, E11.65 - Type 2 diabetes mellitus with hyperglycemia, N18.30 - Chronic kidney disease, stage 3 unspecified Complete Blood Count Auto Diff Today D64.9 - Anemia, unspecified, E11.65 - Type 2 diabetes mellitus with hyperglycemia, N18.30 - Chronic kidney disease, stage 3 unspecified Islet Cell Antibody Scrn/Titer Today D64.9 - Anemia, unspecified, E11.65 - Type 2 diabetes mellitus with hyperglycemia, N18.30 - Chronic kidney disease, stage 3 unspecified Glutamic acid decarboxylase Ab Today D64.9 - Anemia, unspecified, E11.65 - Type 2 diabetes mellitus with hyperglycemia, N18.30 - Chronic kidney disease, stage 3 unspecified C Peptide Today D64.9 - Anemia, unspecified, E11.65 - Type 2 diabetes mellitus with hyperglycemia, N18.30 - Chronic kidney disease, stage 3 unspecified Hemoglobin A1c Today D64.9 - Anemia, unspecified, E11.65 - Type 2 diabetes mellitus with hyperglycemia, N18.30 - Chronic kidney disease, stage 3 unspecified Ferritin Today D64.9 - Anemia, unspecified, E11.65 - Type 2 diabetes mellitus with hyperglycemia, N18.30 - Chronic kidney disease, stage 3 unspecified Vitamin B12 and Folate Today D64.9 - Anemia, unspecified, E11.65 - Type 2 diabetes mellitus with hyperglycemia, N18.30 - Chronic kidney disease, stage 3 unspecified Referrals Diabetes Education Referral E11.65 - Type 2 diabetes mellitus with hyperglycemia Nephrology Referral E11.65 - Type 2 diabetes mellitus with hyperglycemia, I10 - Essential (primary) hypertension, N18.30 - Chronic kidney disease, stage 3 unspecified Medications: New amlodipine 5 mg PO DAILY 90 tabs 3RF empagliflozin (Jardiance) 10 mg PO DAILY 90 tabs 0RF Discontinued losartan Take w/ 100mg tab (150mg daily dose) Discontinued Reason: Doctor's Order 50 mg PO DAILY 90 days 90 tabs 2RF sitagliptin phosphate (Januvia) Discontinued Reason: Doctor's Order 50 mg PO DAILY 30 days 30 tabs 2RF Patient Instructions: continue losartan 100 mg. start amlodipine 5 mg. STOP losartan 50 mg continue metformin and glipizide. STOP januvia (due to cost) and start Jardiance. call if too expensive or coverage issues continue simvastatin referral to nephrology (kidneys) referral to diabetic education AVOID NSAIDS- ibuprofen, motrin, advil, aleeve, naproxen etc. come back in 1 month labs prior Coding Level of Care Code Est Pt Level 4 (45999) Complex EM visit Add On G2211 Diagnoses Primary hypertension I10 Hypertension type: primary hypertension Uncontrolled type 2 diabetes mellitus with hyperglycemia E11.65 Glycemic state: with hyperglycemia Stage 3b chronic kidney disease N18.32 Chronic kidney disease stage 3 subtype: stage 3b (GFR 30-44) Anemia, unspecified type D64.9 Anemia type: unspecified type Additional Codes STEPHEN-7 Assessment Billing - STEPHEN-7 Assessment Tool: STEPHEN-7 Assessment [id number] ([id number])
[2024-07-23 08:17] VITALS: BP 154/84; PULSE 80; RESP 14; O2SAT 97; BMI 27.1
[2024-07-23 08:25] VITALS: BP 142/86
== END 2024-07-23 09:01 | disposition home or self-care (01) ==
LOC: HO.HMCFM 08:07
PROVIDERS: PCP Family Medicine; Visit Provider Physician Assistant
DX: I10 Essential (primary) hypertension (principal); E11.65 Type 2 diabetes mellitus with hyperglycemia; N18.32 Chronic kidney disease, stage 3b; D64.9 Anemia, unspecified

== ENCOUNTER → 2024-07-23 08:07 | Outpatient (BNVA) | payer MEDICARE, SELFPAY | PROVIDERS: PCP Family Medicine; Visit Provider Physician Assistant | DX: E11.65 Type 2 diabetes mellitus with hyperglycemia (principal); I12.9 Hypertensive chronic kidney disease with stage 1 through stage 4 chronic kidney disease, or unspecified chronic kidney disease; E11.22 Type 2 diabetes mellitus with diabetic chronic kidney disease; N18.32 Chronic kidney disease, stage 3b; D64.9 Anemia, unspecified | CPT/HCPCS: 96127; 99212 ==

== ENCOUNTER 2024-07-28 15:29 | Outpatient (AMB) | payer MEDICARE, SELFPAY ==
--- NOTE | 2024-07-28 15:29 | HO.NEPHOV_ITS ---
Vital Signs 07/28/24 15:30 Height 5 ft 10 in Weight 189 lb BMI 27.1 BP 140/82 H Blood Pressure Location Lt brachial Position Sitting Pulse 95 Pulse Source Pulse Oximeter Pulse Oximetry (%) 97 Oxygen Delivery Method Room Air Intake Visit Reasons: CKD STG3/ Conf Director Of Billing Required: No Accompanied by: Self / Same As Patient Allergies lisinopril Allergy (Mild, Verified 07/28/24 15:32) Cough Medication List - Last Reconciled 07/28/24 by Ovidio Wilson MD amlodipine 5 mg PO DAILY blood pressure monitor Monitor blood pressure as directed blood sugar diagnostic ([employer] Verio test strips) As directed blood-glucose meter ([employer] Verio Meter) As directed to test blood sugar, 999 days cephalexin 500 mg PO QID cholecalciferol (vitamin D3) 25 mcg PO DAILY coenzyme Q10 100 mg PO DAILY ginseng 100 mg PO DAILY glipizide ER 10 mg PO BID 90 days lancets ([employer] UltraSoft Lancets) DX: E11.9, test blood sugar once a day, 90 days losartan 100 mg PO DAILY 90 days mecobalamin (vitamin B12) mcg PO metformin 1000 mg AM, 500 mg midday, 1000 mg PM. orally 3 times a day; 90 days simvastatin 40 mg PO DAILY HPI Comments Details: Bear is a pleasant 79-year-old man with a history of hypertension diabetes mellitus. He has been referred for evaluation of CKD. Baseline creatinine is around 1.5 mg/dL until recently. Most recent creatinine was 1.5 which was bumped from the baseline. He is on losartan 100 mg for the past 1 year. Amlodipine 5 mg was added recen tly He has been having increased frequency of micturition. No urgency No hematuria. [facility] Medical History Type 2 diabetes mellitus without complications Surgical History No pertinent past surgical history Family History Mother Hyperlipidemia Father Brain cancer Social History Household Members: Spouse Housing: House Alcohol intake: current Alcohol intake frequency: a few times a month Alcohol type: wine Patient Tobacco Use Status: Never used Tobacco e-Cigarette/Vaping Use: Never Used Second Hand Smoke Exposure: No service: No Current occupational status: retired Current occupational exposures/hazards: No Sexual orientation: Unable to collect Gender identity: Unable to collect Cognitive needs: No Hearing needs: No Vision needs: No Review of Systems Const Denies fever(s) and Denies weight loss Card Denies chest pain Resp Denies cough and Denies hemoptysis GI Denies abdominal pain, Denies diarrhea and Denies nausea Musc Denies back pain Neuro Denies focal weakness Physical Exam Vital Signs: Last Vital Signs Pulse 95 07/28/24 15:30 BP 140/82 H 07/28/24 15:30 Pulse Ox 97 07/28/24 15:30 Oxygen Delivery Method Room Air 07/28/24 15:30 BMI result Body Mass Index 27.1 Results Reviewed Nephrology Results: Hgb 12.9 g/dl (14.0-18.0) L 07/16/24 WBC 8.4 X10*3/uL (4.8-10.8) 07/16/24 Plt Count 313 X10*3/uL (160-400) 07/16/24 Sodium 139 mmol/L (135-145) 07/16/24 Potassium 4.4 mmol/L (3.3-5.1) 07/16/24 Chloride 105 mmol/L (96-108) 07/16/24 Carbon Dioxide 26 mmol/L (22-29) 07/16/24 BUN 26 mg/dL (9-16) H 07/16/24 Creatinine 1.57 mg/dL (0.5-1.4) H 07/16/24 Calcium 9.9 mg/dL (8.4-10.2) 07/16/24 Urine Protein Negative mg/dL (Neg-Trace) 04/21/24 Urine Creatinine 179.46 mg/dL 07/16/24 Assessment & Plan Assessment & Plan (1) Chronic kidney disease, stage 3 unspecified: Code(s): N18.30 - Chronic kidney disease, stage 3 unspecified Category: Medical Qualifiers: Chronic kidney disease stage 3 subtype: stage 3b (GFR 30-44) Qualified Code(s): N18.32 - Chronic kidney disease, stage 3b Plan . 79-year-old man with a history of hypertension with diabetes mellitus with CKD. He has no significant proteinuria. Underlying glomerular nephritis or interstitial disease seem unlikely. Prerenal causes and post renal causes should be ruled out. Obtain renal ultrasonogram to assess echogenicity and to rule out hydronephrosis. He is on high dose of ARB which could be continued to hypoperfusion. At this point the goal is to slow the portion disease Maintain blood pressure 130/80 Continue overt nephrotoxic agents including NSAIDs. Keep intake more than output. Further recommendation will be based on the outcome of the above investigations Orders: Orders US renal BI Today N18.32 - Chronic kidney disease, stage 3b Basic Metabolic Panel 2 Weeks N18.32 - Chronic kidney disease, stage 3b Coding Level of Care Code New Pt Level 4 (73561) Diagnoses Stage 3b chronic kidney disease N18.32 Chronic kidney disease stage 3 subtype: stage 3b (GFR 30-44)
[2024-07-28 15:30] VITALS: BP 140/82; PULSE 95; O2SAT 97; BMI 27.1
== END 2024-07-28 15:54 | disposition home or self-care (01) ==
PROVIDERS: PCP Family Medicine; Visit Provider Internal Medicine Hypertension Specialist
DX: I12.9 Hypertensive chronic kidney disease with stage 1 through stage 4 chronic kidney disease, or unspecified chronic kidney disease (principal); E11.22 Type 2 diabetes mellitus with diabetic chronic kidney disease; N18.32 Chronic kidney disease, stage 3b
CPT/HCPCS: 99204

== ENCOUNTER → 2024-07-28 15:29 | Outpatient (BNVA) | payer MEDICARE, SELFPAY | PROVIDERS: PCP Family Medicine; Visit Provider Internal Medicine Hypertension Specialist | DX: N18.32 Chronic kidney disease, stage 3b (principal) | CPT/HCPCS: 99202 ==

== ENCOUNTER 2024-08-03 08:55 | Outpatient (AMB) | payer MEDICARE, SELFPAY ==
--- NOTE | 2024-08-03 09:53 | MHC.AMDMED ---
Intake Intake Visit Reasons: T2DM/CONFIRMED Telecommunications Project Manager Required: No Accompanied by: Self / Same As Patient Allergies lisinopril Allergy (Mild, Verified 07/28/24 15:32) Cough HPI Comprehensive Diabetes Asmnt Most Recent Diabetes Results: Microalb/Creat Ratio 11.1 ug/mg cr (<30) 07/16/24 Cholesterol 137 mg/dL (<200) 07/16/24 HDL Cholesterol 42 mg/dL (>40) 07/16/24 Triglycerides 88 mg/dL (<150) 07/16/24 Creatinine 1.57 mg/dL (0.5-1.4) H 07/16/24 Blood Urea Nitrogen 26 mg/dL (9-16) H 07/16/24 Sodium 139 mmol/L (135-145) 07/16/24 Potassium 4.4 mmol/L (3.3-5.1) 07/16/24 Chloride 105 mmol/L (96-108) 07/16/24 Carbon Dioxide 26 mmol/L (22-29) 07/16/24 Calcium 9.9 mg/dL (8.4-10.2) 07/16/24 AST 16 U/L (5-37) 07/16/24 ALT 12 U/L (0-40) 07/16/24 Total Protein 7.7 g/dL (6.5-8.0) 07/16/24 Albumin 4.4 g/dL (3.5-5.0) 07/16/24 [facility] Medical History Type 2 diabetes mellitus without complications Surgical History No pertinent past surgical history Family History Mother Hyperlipidemia Father Brain cancer Social History Household Members: Spouse Housing: House Alcohol intake: current Alcohol intake frequency: a few times a month Alcohol type: wine Patient Tobacco Use Status: Never used Tobacco e-Cigarette/Vaping Use: Never Used Second Hand Smoke Exposure: No service: No Current occupational status: retired Current occupational exposures/hazards: No Sexual orientation: Unable to collect Gender identity: Unable to collect Cognitive needs: No Hearing needs: No Vision needs: No Assessment & Plan Assessment & Plan (1) Diabetes: Code(s): E11.9 - Type 2 diabetes mellitus without complications Plan: Diabetes self-management education and support participation record Assessment/scale: 1= needs instructed? 2= needs review? 3= comprehend keep point? 4= demonstrates understanding/ competent? NC= Not Covered Topics Learning Objective: Initial visit Initial or post srvc Initial or post srvc Initial or post srvc Initial or post srvc Initial or post srvc Post srvc Comments Pre Edu-assessment/plan Outcome or reassess Outcome or reassess Outcome or reassess Outcome or reassess Outcome or reassess Outcome or reassess Diabetes pathophysiology 1 Healthy eating 2 Being active 2 Taking medication 1 Monitoring glucose 1 Acute complication Chronic complicated Lifestyle and healthy coping 2 Diabetes distress in support ?Diabetes pathophysiology: ?Defined diabetes med identify own type of diabetes; list 3 options for treating diabetes Healthy eating: ?Described effect of type, amount and ?timing of food on blood glucose; list 3 methods for planning meal Being active: ?State effect of exercise on blood glucose level Taking medication: ?State effect of diabetes medications on diabetes; name diabetes medications taking, action and side effects Monitoring glucose: ?Identify recommended blood glucose targets and personal target Acute complication: ?List symptoms and treatment of hyper and hypoglycemia, DKA, sick day guidelines and guidelines for severe weather or situations of crisis and diabetes supply manage Chronic complication: ?To find the relationship of blood glucose levels to long-term complications of diabetes in screening and preventative measures Lifestyle and healthy coping: ?Described lifestyle and healthy coping strategies to rule out diabetes self-management Diabetes to stress and support: ?Recognize Diabetes to stress and be able to identified support options Learning objectives: The patient was provided with verbal and written education on the following topics as outlined below. The patient met all learning objectives and was able to verbalize understanding and provide teach back of education topics discussed . The patient was provided with the opportunity to ask questions and all questions were answered. Patient Assessment Assess patient education level/literacy/barriers, patient reports having master's degree from [employer] Patient questions/concerns, patient's last A1c in 04/23/2024 8%. Patient reports he has not started Jardiance 10 mg, will check with the pharmacy to see what co-pay. Patient reports he is currently unemployed and is concerned about cost of medication He is on metformin 1000 mg in the a.m., 500 mg in the p.m., 1000 mg before bed Patient is also on glipizide ER b.i.d. Recommended to patient if Jardiance co-pay is too high, to look into patient assistance programs through [employer] What is Diabetes? Pathophysiology How the body produces and uses insulin Identify type of DM Risk factors Signs of Diabetes Brief overview of Diabetes Management Monitoring blood sugar Following a meal plan Regular exercise Maintaining a healthy weight Taking medication as needed Members of the care team (PCP, RN, MA, RD, CDE, piano regulator inspector) Blood glucose monitoring When/how often to test Target blood sugar ranges Patient reports having meter, but has not been testing glucose Patient did not bring meter to today's visit Introduction to Nutrition Importance of healthy diet in managing DM Diet is personalized to individual preference Review patient?s regular diet/food preferences Who prepares meals/does food shopping/ Dining out?/ Barriers? How diet effects glucose Eating 3 balanced meals a day with small, healthy snacks between meals Review food groups Carbohydrates: What is a carbohydrate/Which food/food groups are considered carbohydrates Effect of carbohydrates on blood glucose Portion sizes Reading food labels Basic carb counting (if applicable per nursing assessment) Plate method Meal planning Recommendations: Follow plate method, consistent carbs and read nutritional labels. Smart Goal: Patient will identify foods in his current diet that contain carbohydrates by next visit Educational Materials: The patient was provided with the following written educational materials: Planning Healthy Meals Handout Patient Response to instructions: Comprehension of Instructions: Fair Readiness to make changes: Contemplation How confident they feel about making changes: Fair Portions of this note were created using voice recognition software, please excuse any words or phrases that may have been misinterpreted. Patient Instructions: Include regular daily activity. ADA recommends 30 minutes of exercise 5 days a week. Weight loss talk to PCP or Nurse Practitioner Physicians Assistant before starting new plan. Test blood sugar as directed; Fasting and 2hpp largest meal. Watch trends in results. Utilize results and to assess how food, physical activity and medications affect blood sugar results. Bring glucometer or CGM to next visit. Be knowledgeable about diabetes medication, its action, side effects, efficacy, toxicity, prescribed dosage, appropriate timing and frequency of administration, effect of missed and delayed doses and instructions for storage, travel and safety. Problem solving techniques to monitor hypo/hyperglycemia episodes and treatments. Reduce risk reduction behaviors, smoking cessation, regular eye, foot and dental examinations. Patient will follow-up prosthodontist/educator in 6 weeks after next A1c Coding Level of Care Code Est Pt Level 1 (04023) Diagnoses Diabetes E11.9
== END 2024-08-03 09:55 | disposition home or self-care (01) ==
PROVIDERS: PCP Family Medicine; Visit Provider Registered Nurse Diabetes Educator
DX: E11.9 Type 2 diabetes mellitus without complications (principal)

== ENCOUNTER → 2024-08-03 08:55 | Outpatient (BNVA) | payer MEDICARE, SELFPAY | PROVIDERS: PCP Family Medicine; Visit Provider Registered Nurse Diabetes Educator | DX: E11.9 Type 2 diabetes mellitus without complications (principal) | CPT/HCPCS: 99211 ==

== ENCOUNTER 2024-08-06 10:26 | Outpatient (REF) | payer MEDICARE, SELFPAY ==
--- NOTE | ~2024-08-06 | US_ITS ---
EXAMINATION: US RETROPERITONEAL LIMITED (RENAL ONLY) CLINICAL INFORMATION: Chronic kidney disease, stage IIIb. COMPARISON: None available. TECHNIQUE: Real-time imaging of the kidneys. FINDINGS: RIGHT KIDNEY: 11.1 x 4.8 x 4.9 cm (SAG x AP x TRV). The kidney is normal in size, contour, and echogenicity. Renal cortical thickness is normal. No calculi or focal parenchymal lesions. No hydronephrosis. Cysts middle pole measures 5 mm and 7 mm. LEFT KIDNEY: 10.7 x 5.6 x 4.0 cm (SAG x AP x TRV). The kidney is normal in size, contour, and echogenicity. Renal cortical thickness is normal. No renal calculi or hydronephrosis. US/US renal BI IMPRESSION: 1. No ultrasound evidence of renal obstruction or hydronephrosis. 2. There are 2 subcentimeter cysts in the right kidney. Electronically signed by: Mick Lew MD 09/20/2024 07:40 PM EST
== END 2024-08-06 10:27 | disposition home or self-care (01) ==
LOC: HO.US 10:26
PROVIDERS: PCP Family Medicine; Visit Provider Internal Medicine Hypertension Specialist
DX: N18.32 Chronic kidney disease, stage 3b (principal)
CPT/HCPCS: 76775

== ENCOUNTER 2024-08-20 08:35 | Outpatient (AMB) | payer MEDICARE, SELFPAY ==
--- NOTE | 2024-08-20 08:58 | A.OFFPC_ITS ---
Vital Signs 08/20/24 09:00 08/20/24 09:08 Height 5 ft 10 in Weight 178 lb BMI 25.5 BP 148/84 H 138/76 Blood Pressure Location Rt brachial Rt brachial Position Sitting Sitting Pulse 70 Pulse Source Pulse Oximeter Pulse Oximetry (%) 99 Oxygen Delivery Method Room Air Intake Visit Reasons: bp and dm recheck Intake Note: Follow up htn, diabetes Allergies lisinopril Allergy (Mild, Verified 08/20/24 08:59) Cough Medication List - Last Reconciled 08/20/24 by Evy Junior PA-C blood pressure monitor Monitor blood pressure as directed blood sugar diagnostic ([employer] Verio test strips) As directed blood-glucose meter ([employer]Touch Verio Meter) As directed to test blood sugar, 999 days cholecalciferol (vitamin D3) 25 mcg PO DAILY coenzyme Q10 100 mg PO DAILY ginseng 100 mg PO DAILY glipizide ER 10 mg PO BID 90 days lancets (Active [employer]Touch UltraSoft Lancets) DX: E11.9, test blood sugar once a day, 90 days losartan 100 mg PO DAILY 90 days mecobalamin (vitamin B12) mcg PO metformin 1000 mg AM, 500 mg midday, 1000 mg PM. orally 3 times a day; 90 days simvastatin 40 mg PO DAILY Tobacco use date assessed: 07/23/24 Dental Screening Dental Screen Date: 07/23/24 HPI bp and dm recheck HPI Details Patient is a 79-year-old male with a significant past medical history of uncontrolled type 2 diabetes, chronic kidney disease, hyperlipidemia and hypertension presenting today to review labs. CV: Blood pressure today in the office is 148/84 and repeat blood pressure was 138/76. He is currently on losartan 10 mg daily and norvasc 5 mg. Cholesterol is managed with simvastatin 40 mg. No myalgias. Last LFTs and lipids WNL. Endo: His last A1c was 8 and today is 7.5. He is on glipizide 10 mg twice a day, metformin 1000 mg twice a day, and was started on jardiance 10 mg daily. - he states he never picked it up. -Januvia is too expensive. -he was diagnosed 4 years ago. No fam hx of dm -eye exam last week -denies any hyper or hypoglycemic events . He felt low 2 years ago and treated it with oj. -had diabetic Education last month and f ound this helpful. Nephro: He just followed with nephrology. Avoid NSAIDs. Heme: mild anemia for years, stable. Colonoscopy: 2003 per pt- was referred [facility] Medical History Type 2 diabetes mellitus without complications Surgical History No pertinent past surgical history Family History Mother Hyperlipidemia Father Brain cancer Social History Household Members: Spouse Housing: House Alcohol intake: current Alcohol intake frequency: a few times a month Alcohol type: wine Patient Tobacco Use Status: Never used Tobacco e-Cigarette/Vaping Use: Never Used Second Hand Smoke Exposure: No service: No Current occupational status: retired Current occupational exposures/hazards: No Sexual orientation: Unable to collect Gender identity: Unable to collect Cognitive needs: No Hearing needs: No Vision needs: No Questionnaire PHQ-9 Over the last 2 weeks, how often have you been bothered by any of the following problems? 1. Little interest or pleasure in doing things: not at all 2. Feeling down, depressed, or hopeless: not at all 3. Trouble falling or staying asleep, or sleeping too much: not at all 4. Feeling tired or having little energy: not at all 5. Poor appetite or overeating: not at all 6. Feeling bad about yourself - or that you are a failure or have let yourself or your family down: not at all 7. Trouble concentrating on things, such as reading the newspaper or watching television: not at all 8. Moving or speaking so slowly that other people could have noticed. Or the opposite - being so fidgety or restless that you have been moving around a lot more than usual: not at all 9. Thoughts that you would be better off or of hurting yourself in some way: not at all Total score: 0 Source: Developed by Drs. Christo Woodard, Mesha Fong, Brando Winn and colleagues, with an educational josee from [employer]. Thrive Questionnaire Date Thrive assessed: 08/20/24 I am a: Patient What is your living situation today?: I have a steady place to live Within the past 12 months, did the food you bought not last and you didn't have the money to get more?: Never true Within the past 12 months, did you worry whether your food would run out before you got money to buy more?: Never true Do you have trouble paying for medicines?: Yes Do you have trouble getting transportation to medical appointments?: No Do you have trouble paying your heating and electricity bill?: Yes Do you have trouble taking care of your child, family member or friend?: No Do you have trouble with day-to-day activities such as bathing, preparing meals, shopping, managing finances, etc.?: No Are you currently unemployed and looking for a job?: Yes Are you interested in more education?: No Please select the resources that you would like help with: None Currently or been in a relationship where the following occur: No concerns reported THRIVE Score: 1 AUDIT C Alcohol Use Questionnaire (AUDIT-C) 1. How often do you have a drink containing alcohol?: Monthly or less 2. How many drinks containing alcohol do you have on a typical day when you are drinking?: 1 or 2 3. How often do you have six or more drinks on one occasion?: Never Total Score: 1 STEPHEN-7 AMB Questionnaire STEPHEN-7 Date STEPHEN - 7 assessed: 07/23/24 Source: Developed by Drs. Christo Woodard, Mesha Fong, Brando Winn and colleagues, with an educational josee from [employer]. Physical exam (Primary Care) Vital Signs: Last Vital Signs Pulse 70 08/20/24 09:00 BP 148/84 H 08/20/24 09:00 Pulse Ox 99 08/20/24 09:00 Oxygen Delivery Method Room Air 08/20/24 09:00 BMI result Body Mass Index 25.5 Tobacco/Smoking Status: Tobacco use Status Tobacco use date assessed 07/23/24 08/20/24 09:04 Patient Tobacco Use Status Never used Tobacco 08/20/24 09:04 e-Cigarette/Vaping Use Never Used 08/20/24 09:04 PHQ-9: PHQ-9 Score PHQ-9: Total score 0 08/20/24 09:04 Thrive Assessment: Date of Thrive Assessment Date Thrive assessed 07/22/24 08/20/24 09:04 Currently or been in a relationship where the following occur: No concerns reported Const Orientation/consciousness: patient oriented x3 HENMT Ears: hearing grossly normal bilaterally Neck Thyroid: Thyroid normal Lymphatic: no lymphadenopathy noted Resp Auscultation: clear to auscultation bilaterally Cardio Rate: regular rate Rhythm: regular rhythm Heart sounds: S1 normal heart sound present and S2 normal heart sound present GI Inspection: Yes normal to inspection Palpation (GI): Soft to palpation and Other GI palpation findings present (nontender, no cva tenderness) Auscultation: normoactive bowel sounds Rectal Exam - Male: Yes deferred Skin General skin exam: no rashes or lesions noted Neuro General: patient oriented x3, gait normal and no focal motor deficits Results AMB Hemoglobin A1c AMB Hemoglobin A1c 7.5 % Last Edit by Belinda Huddleston CMA on 08/20/24 09:10 Results Reviewed Results Reviewed: Laboratory Tests 04/21/24 07/16/24 09:10 07:39 Sodium 139 Potassium 4.4 Chloride 105 Carbon Dioxide 26 Creatinine 1.57 H Estimated GFR 43 Fasting Glucose 145 H Hgb A1c (Clinic) 8.0 H Calcium 9.9 Triglycerides 88 Cholesterol 137 LDL Cholesterol, Calc 78 HDL Cholesterol 42 PSA Screen 1.03 Coding Level of Care Code Est Pt Level 4 (01242) Complex EM visit Add On G2211 Diagnoses Stage 3b chronic kidney disease N18.32 Chronic kidney disease stage 3 subtype: stage 3b (GFR 30-44) Primary hypertension I10 Hypertension type: primary hypertension Uncontrolled type 2 diabetes mellitus with hyperglycemia E11.65 Glycemic state: with hyperglycemia Assessment & Plan Assessment & Plan (1) Chronic kidney disease, stage 3 unspecified: Code(s): N18.30 - Chronic kidney disease, stage 3 unspecified Category: Medical Qualifiers: Chronic kidney disease stage 3 subtype: stage 3b (GFR 30-44) Qualified Code(s): N18.32 - Chronic kidney disease, stage 3b Plan: Following with Nephrology. Has a renal ultrasound scheduled and a follow up arranged. (2) HTN (hypertension): Code(s): I10 - Essential (primary) hypertension Category: Medical Qualifiers: Hypertension type: primary hypertension Qualified Code(s): I10 - Essential (primary) hypertension Plan: A little elevated above goal today. We will increase amlodipine to 10 mg. Continue losartan 100 mg (3) Diabetes type 2, uncontrolled: Code(s): E11.65 - Type 2 diabetes mellitus with hyperglycemia Category: Medical Qualifiers: Glycemic state: with hyperglycemia Qualified Code(s): E11.65 - Type 2 diabetes mellitus with hyperglycemia Plan: Resent Jardiance. We will let me know if this is too expensive. Follow up in 3 months. Sooner if needed. Patient understands and agrees with this plan. Orders: Orders AMB Hemoglobin A1c Today E11.9 - Type 2 diabetes mellitus without complications
[2024-08-20 09:00] VITALS: BP 148/84; PULSE 70; O2SAT 99; BMI 25.5
[2024-08-20 09:08] VITALS: BP 138/76
== END 2024-08-20 09:25 | disposition home or self-care (01) ==
PROVIDERS: PCP Family Medicine; Visit Provider Physician Assistant
DX: N18.32 Chronic kidney disease, stage 3b (principal); I10 Essential (primary) hypertension; E11.65 Type 2 diabetes mellitus with hyperglycemia; E11.9 Type 2 diabetes mellitus without complications

== ENCOUNTER → 2024-08-20 08:35 | Outpatient (BNVA) | payer MEDICARE, SELFPAY | PROVIDERS: PCP Family Medicine; Visit Provider Physician Assistant | DX: E11.65 Type 2 diabetes mellitus with hyperglycemia (principal); E11.22 Type 2 diabetes mellitus with diabetic chronic kidney disease; I12.9 Hypertensive chronic kidney disease with stage 1 through stage 4 chronic kidney disease, or unspecified chronic kidney disease; N18.32 Chronic kidney disease, stage 3b | CPT/HCPCS: 83036; 96127; 99212 ==

== ENCOUNTER 2024-08-27 13:17 | Outpatient (REF) | payer MEDICARE, SELFPAY ==
[2024-08-27 14:55] LABS: Anion Gap 12 (12-20); Blood Urea Nitrogen 20 mg/dL (9-16); Calcium 10.1 mg/dL (8.4-10.2); Carbon Dioxide 27 mmol/L (22-29); Chloride 104 mmol/L (96-108); Estimated Glomerular Filt Rate 50; Glucose Random 206 mg/dL (60-115); Potassium 3.8 mmol/L (3.3-5.1); Sodium 139 mmol/L (135-145)
== END 2024-08-27 13:18 | disposition home or self-care (01) ==
LOC: HO.LAB 13:17
PROVIDERS: PCP Physician Assistant; Visit Provider Internal Medicine Hypertension Specialist
DX: N18.32 Chronic kidney disease, stage 3b (principal)
CPT/HCPCS: 36415; 80048

== ENCOUNTER 2024-09-01 13:33 | Outpatient (AMB) | payer MEDICARE, SELFPAY ==
--- NOTE | 2024-09-01 13:40 | HO.NEPHOV ---
Vital Signs 09/01/24 13:41 09/01/24 13:51 Height 5 ft 10 in Weight 192 lb BMI 27.5 BP 146/84 H 130/70 Blood Pressure Location Rt brachial Rt brachial Position Sitting Sitting Pulse 90 Pulse Source Pulse Oximeter Pulse Oximetry (%) 98 Oxygen Delivery Method Room Air Intake Visit Reasons: 6 wks follow up/ Unable to reach Curbing Stonecutter Required: No Accompanied by: Self / Same As Patient Allergies lisinopril Allergy (Mild, Verified 09/01/24 13:42) Cough Medication List - Last Reconciled 09/01/24 by Ovidio Wilson MD amlodipine 10 mg PO DAILY blood pressure monitor Monitor blood pressure as directed blood sugar diagnostic ([email or web address] Verio test strips) As directed blood-glucose meter ([email or web address] Verio Meter) As directed to test blood sugar, 999 days cholecalciferol (vitamin D3) 25 mcg PO DAILY coenzyme Q10 100 mg PO DAILY dapagliflozin propanediol (Farxiga) 5 mg PO QAM ginseng 100 mg PO DAILY glipizide ER 10 mg PO BID 90 days lancets ([employer] UltraSoft Lancets) DX: E11.9, test blood sugar once a day, 90 days losartan 100 mg PO DAILY 90 days mecobalamin (vitamin B12) mcg PO metformin 1000 mg AM, 500 mg midday, 1000 mg PM. orally 3 times a day; 90 days simvastatin 40 mg PO DAILY HPI Comments Details: Bear is a pleasant 79-year-old man with a history of hypertension diabetes mellitus. He has been referred for evaluation of CKD. Baseline creatinine is around 1.5 mg/dL until recently. Most recent creatinine was 1.5 which was bumped from the baseline. He is on losartan 100 mg for the past 1 year. Amlodipine 5 mg was added recently He has been having increased frequency of micturition. No urgency No hematuria. [facility] Medical History (Updated 08/20/24 @ 09:28 by Evy Junior PA-C) Type 2 diabetes mellitus without complications Surgical History No pertinent past surgical history Family History Mother Hyperlipidemia Father Brain cancer Social History Household Members: Spouse Housing: House Alcohol intake: current Alcohol intake frequency: a few times a month Alcohol type: wine Patient Tobacco Use Status: Never used Tobacco e-Cigarette/Vaping Use: Never Used Second Hand Smoke Exposure: No service: No Current occupational status: retired Current occupational exposures/hazards: No Sexual orientation: Unable to collect Gender identity: Unable to collect Cognitive needs: No Hearing needs: No Vision needs: No Physical Exam Vital Signs: Last Vital Signs Pulse 90 09/01/24 13:41 BP 146/84 H 09/01/24 13:41 Pulse Ox 98 09/01/24 13:41 Oxygen Delivery Method Room Air 09/01/24 13:41 BMI result Body Mass Index 27.5 Results Reviewed Nephrology Results: Hgb 12.9 g/dl (14.0-18.0) L 07/16/24 WBC 8.4 X10*3/uL (4.8-10.8) 07/16/24 Plt Count 313 X10*3/uL (160-400) 07/16/24 Sodium 139 mmol/L (135-145) 08/27/24 Potassium 3.8 mmol/L (3.3-5.1) 08/27/24 Chloride 104 mmol/L (96-108) 08/27/24 Carbon Dioxide 27 mmol/L (22-29) 08/27/24 BUN 20 mg/dL (9-16) H 08/27/24 Creatinine 1.38 mg/dL (0.5-1.4) 08/27/24 Calcium 10.1 mg/dL (8.4-10.2) 08/27/24 Urine Creatinine 179.46 mg/dL 07/16/24 Renal US 08/06/24 Assessment & Plan Assessment & Plan (1) Chronic kidney disease, stage 3 unspecified: Code(s): N18.30 - Chronic kidney disease, stage 3 unspecified Category: Medical Qualifiers: Chronic kidney disease stage 3 subtype: stage 3b (GFR 30-44) Qualified Code(s): N18.32 - Chronic kidney disease, stage 3b Plan . 79-year-old man with a history of hypertension with diabetes mellitus with CKD. He has no significant proteinuria. Underlying glomerular nephritis or interstitial disease seem unlikely. Creatinine is down to 1.3 Probably his baseline No significnat proteinuria renal ultrasonogram to assess echogenicity and to rule out hydronephrosis. Images reviewed- appears normal. Official report pending Continue with ARB SGLT-2 inhibitor has been prescribed, but has not taken it yet due to cost factor At this point the goal is to slow the portion disease Maintain blood pressure 130/80 Continue to avoid nephrotoxic agents including NSAIDs. Keep intake more than output. \ Orders: Orders Electrolytes 4 Months N18.32 - Chronic kidney disease, stage 3b Blood Urea Nitrogen 4 Months N18.32 - Chronic kidney disease, stage 3b Creatinine 4 Months N18.32 - Chronic kidney disease, stage 3b Calcium 4 Months N18.32 - Chronic kidney disease, stage 3b Coding Level of Care Code Est Pt Level 4 (90925) Diagnoses Stage 3b chronic kidney disease N18.32 Chronic kidney disease stage 3 subtype: stage 3b (GFR 30-44)
[2024-09-01 13:41] VITALS: BP 146/84; PULSE 90; O2SAT 98; BMI 27.5
[2024-09-01 13:51] VITALS: BP 130/70
== END 2024-09-01 13:56 | disposition home or self-care (01) ==
LOC: HO.HKA 13:34
PROVIDERS: PCP Family Medicine; Visit Provider Internal Medicine Hypertension Specialist
DX: N18.32 Chronic kidney disease, stage 3b (principal)
CPT/HCPCS: 99214

== ENCOUNTER → 2024-09-01 13:33 | Outpatient (BNVA) | payer MEDICARE, SELFPAY | PROVIDERS: PCP Family Medicine; Visit Provider Internal Medicine Hypertension Specialist | DX: E11.22 Type 2 diabetes mellitus with diabetic chronic kidney disease (principal); N18.32 Chronic kidney disease, stage 3b | CPT/HCPCS: 99212 ==

== ENCOUNTER 2024-09-14 08:55 | Outpatient (AMB) | payer MEDICARE, SELFPAY ==
--- NOTE | 2024-09-14 09:43 | A.OFFVIS_ITS ---
Intake Intake Visit Reasons: 60 min-lvm Social Welfare Research Worker Required: No Accompanied by: Self / Same As Patient Allergies lisinopril Allergy (Mild, Verified 09/01/24 13:42) Cough HPI Comprehensive Diabetes Asmnt Most Recent Diabetes Results: Creatinine 1.38 mg/dL (0.5-1.4) 08/27/24 Blood Urea Nitrogen 20 mg/dL (9-16) H 08/27/24 Sodium 139 mmol/L (135-145) 08/27/24 Potassium 3.8 mmol/L (3.3-5.1) 08/27/24 Chloride 104 mmol/L (96-108) 08/27/24 Carbon Dioxide 27 mmol/L (22-29) 08/27/24 Calcium 10.1 mg/dL (8.4-10.2) 08/27/24 [facility] Medical History (Updated 08/20/24 @ 09:28 by Evy Junior PA-C) Type 2 diabetes mellitus without complications Surgical History No pertinent past surgical history Family History Mother Hyperlipidemia Father Brain cancer Social History Household Members: Spouse Housing: House Alcohol intake: current Alcohol intake frequency: a few times a month Alcohol type: wine Patient Tobacco Use Status: Never used Tobacco e-Cigarette/Vaping Use: Never Used Second Hand Smoke Exposure: No service: No Current occupational status: retired Current occupational exposures/hazards: No Sexual orientation: Unable to collect Gender identity: Unable to collect Cognitive needs: No Hearing needs: No Vision needs: No Assessment & Plan Assessment & Plan (1) Diabetes: Code(s): E11.9 - Type 2 diabetes mellitus without complications Plan: Diabetes self-management education and support participation record Assessment/scale: 1= needs instructed? 2= needs review? 3= comprehend keep point? 4= demonstrates understanding/ competent? NC= Not Covered Topics Learning Objective: Initial visit Initial or post srvc Initial or post srvc Initial or post srvc Initial or post srvc Initial or post srvc Post srvc Comments Pre Edu-assessment/plan Outcome or reassess Outcome or reassess Outcome or reassess Outcome or reassess Outcome or reassess Outcome or reassess Diabetes pathophysiology 1 3 Healthy eating 2 3 C Being active 2 3 Taking medication 1 3 Monitoring glucose 1 Acute complication 1 Chronic complicated 2 Lifestyle and healthy coping 2 3 Diabetes distress in support 2 ?Diabetes pathophysiology: ?Defined diabetes med identify own type of diabetes; list 3 options for treating diabetes Healthy eating: ?Described effect of type, amount and ?timing of food on blood glucose; list 3 methods for planning meal Being active: ?State effect of exercise on blood glucose level Taking medication: ?State effect of diabetes medications on diabetes; name diabetes medications taking, action and side effects Monitoring glucose: ?Identify recommended blood glucose targets and personal target Acute complication: ?List symptoms and treatment of hyper and hypoglycemia, DKA, sick day guidelines and guidelines for severe weather or situations of crisis and diabetes supply manage Chronic complication: ?To find the relationship of blood glucose levels to long- term complications of diabetes in screening and preventative measures Lifestyle and healthy coping: ?Described lifestyle and healthy coping strategies to rule out diabetes self-management Diabetes to stress and support: ?Recognize Diabetes to stress and be able to identified support options Meter Teaching Patient presents today for a nursing visit for glucometer teaching. Type of Meter: OneTouch Verio, patient reports that supplies are very expensive. Patient has Medicare advantage plan suggested to patient he contact insurance to find out they use for preferred meter Patient Education: Patient was instructed and provided with demonstration of the following: Setting date/time Turning meter on/off Retrieving blood glucose log Handwashing Test sites Site rotation Use of lancing device Testing blood glucose Removing and disposing needle from lancing device Safe disposal of sharps Target blood sugar Signs/ symptoms/treatment of hypoglycemia/hyperglycemia Frequency of testing Patient verbalized understanding of education provided and was able to demonstrate proper use of lancing device and glucometer. Blood Glucose at time of visit: ?333? patient reports he ate bran muffin and coffee for breakfast, we were also using strips because patient did not have new strips Patient is interested in CGM but he is not on insulin at this time Patient's last A1c on 08/20/2024 7.5% Reports co-pay on Jardiance was too high Please sample Dexcom G7 sensor on patient so he could try CGM. If he chooses he can use Stelo [id number] CGM Instructed patient sensors water proof you can shower, or swim do not submerge sensor in water for over 30 minutes Is sensor falls off cannot put back in you need to replace sensor, customer service number given to patient for sensor replacement Sensor placed on the back of left arm Patient left visit with sensor in warmup Reviewed how to interpret trend arrows Reminded patient that to check finger sticks if symptoms do not match sensor reading. Discussed lag time between finger stick and sensor data.? Instructed patient she should always keep blood glucometer for backup testing if needed Reviewed delay of CGM from fingersticks Reminded pt that if symptoms do not match sensor still needs to check fingersticks. Portions of this note were created using voice recognition software, please excuse any words or phrases that may have been misinterpreted. Patient Instructions: Patient instruction: CGM provides information on blood glucose control throughout the day, including hyperglycemia and hypoglycemia. ? Continue to monitor blood glucose as instructed. Follow nutrition guidelines provided. Report any discomfort promptly to health care provider. ?Stay well-hydrated. You can bathe ,shower, swim and exercise while wearing the glucose sensor. Do not submerge glucose sensor in water for more than 30 minutes. Patient will follow-up with patient educator in 10 days to review CGM Coding Level of Care Code Est Pt Level 1 (76520) Diagnoses Diabetes E11.9
== END 2024-09-14 09:56 | disposition home or self-care (01) ==
PROVIDERS: PCP Family Medicine; Visit Provider Registered Nurse Diabetes Educator
DX: E11.9 Type 2 diabetes mellitus without complications (principal)

== ENCOUNTER → 2024-09-14 08:55 | Outpatient (BNVA) | payer MEDICARE, SELFPAY | PROVIDERS: PCP Family Medicine; Visit Provider Registered Nurse Diabetes Educator | DX: E11.9 Type 2 diabetes mellitus without complications (principal) | CPT/HCPCS: 99211 ==

== ENCOUNTER 2024-09-28 10:02 | Outpatient (AMB) | payer MEDICARE, SELFPAY ==
--- NOTE | 2024-09-28 10:40 | A.OFFVIS_ITS ---
Intake Intake Visit Reasons: CGM Review-confirmed Water Filtration Technician Required: No Accompanied by: Self / Same As Patient Allergies lisinopril Allergy (Mild, Verified 09/01/24 13:42) Cough HPI Comprehensive Diabetes Asmnt Most Recent Diabetes Results: Microalb/Creat Ratio 11.1 ug/mg cr (<30) 07/16/24 Cholesterol 137 mg/dL (<200) 07/16/24 HDL Cholesterol 42 mg/dL (>40) 07/16/24 Triglycerides 88 mg/dL (<150) 07/16/24 Creatinine 1.38 mg/dL (0.5-1.4) 08/27/24 Blood Urea Nitrogen 20 mg/dL (9-16) H 08/27/24 Sodium 139 mmol/L (135-145) 08/27/24 Potassium 3.8 mmol/L (3.3-5.1) 08/27/24 Chloride 104 mmol/L (96-108) 08/27/24 Carbon Dioxide 27 mmol/L (22-29) 08/27/24 Calcium 10.1 mg/dL (8.4-10.2) 08/27/24 AST 16 U/L (5-37) 07/16/24 ALT 12 U/L (0-40) 07/16/24 Total Protein 7.7 g/dL (6.5-8.0) 07/16/24 Albumin 4.4 g/dL (3.5-5.0) 07/16/24 [facility] Medical History (Updated 08/20/24 @ 09:28 by Evy Junior PA-C) Type 2 diabetes mellitus without complications Surgical History No pertinent past surgical history Family History Mother Hyperlipidemia Father Brain cancer Social History Household Members: Spouse Housing: House Alcohol intake: current Alcohol intake frequency: a few times a month Alcohol type: wine Patient Tobacco Use Status: Never used Tobacco e-Cigarette/Vaping Use: Never Used Second Hand Smoke Exposure: No service: No Current occupational status: retired Current occupational exposures/hazards: No Sexual orientation: Unable to collect Gender identity: Unable to collect Cognitive needs: No Hearing needs: No Vision needs: No Assessment & Plan Assessment & Plan (1) Diabetes type 2, uncontrolled: Code(s): E11.65 - Type 2 diabetes mellitus with hyperglycemia Qualifiers: Glycemic state: with hyperglycemia Qualified Code(s): E11.65 - Type 2 diabetes mellitus with hyperglycemia (2) Diabetes: Code(s): E11.9 - Type 2 diabetes mellitus without complications Plan: Plan Diabetes self-management education and support participation record Assessment/scale: 1= needs instructed? 2= needs review? 3= comprehend keep point? 4= demonstrates understanding/ competent? NC= Not Covered Topics Learning Objective: Initial visit Initial or post srvc Initial or post srvc Initial or post srvc Initial or post srvc Initial or post srvc Post srvc Comments Pre Edu-assessment/plan Outcome or reassess Outcome or reassess Outcome or reassess Outcome or reassess Outcome or reassess Outcome or reassess Diabetes pathophysiology 1 3 Healthy eating 2 3 A Being active 2 3 Taking medication 1 3 Monitoring glucose 1 3 Acute complication 1 Chronic complicated 2 3 Lifestyle and healthy coping 2 3 Diabetes distress in support 2 3 ?Diabetes pathophysiology: ?Defined diabetes med identify own type of diabetes; list 3 options for treating diabetes Healthy eating: ?Described effect of type, amount and ?timing of food on blood glucose; list 3 methods for planning meal Being active: ?State effect of exercise on blood glucose level Taking medication: ?State effect of diabetes medications on diabetes; name diabetes medications taking, action and side effects Monitoring glucose: ?Identify recommended blood glucose targets and personal target Acute complication: ?List symptoms and treatment of hyper and hypoglycemia, DKA, sick day guidelines and guidelines for severe weather or situations of crisis and diabetes supply manage Chronic complication: ?To find the relationship of blood glucose levels to long- term complications of diabetes in screening and preventative measures Lifestyle and healthy coping: ?Described lifestyle and healthy coping strategies to rule out diabetes self-management Diabetes to stress and support: ?Recognize Diabetes to stress and be able to identified support options Learning objectives: Assess patient education level/literacy/barriers, patient reports financial insecurity and he is unable to pay copays on Diabetes medication, patient referred to Community navigation at PCPs office by physician's marketing administrative assistant after today's visit The patient was provided with verbal and written education on the following topics as outlined below. Patient's last A1c on 08/20/2024 7.5% Patient questions/concerns, patient returned after wearing sample Dexcom G7 sensor for 10 days Patient's average glucose for the 10 days wearing sensor 211 mg/dL Patient above target 56% At target 44% Below target 0% Patient has significant postprandial hyperglycemia, especially after breakfast. Reviewed with patient foods that contain carbohydrates, suggested to patient he increase physical activity after breakfast if glucose levels still remain high he should be drinking non carbohydrate fluids to help with hyperglycemia. The patient met all learning objectives and was able to verbalize understanding and provide teach back of education topics discussed . The patient was provided with the opportunity to ask questions and all questions were answered. Topics covered in today?s session included: Medications (If applicable) * Name of medication? * Dosing/administration instructions? * Mechanism of action? * Potential side effects? * Potential adverse reaction and appropriate treatment? * Review onset, peak, duration Assess for concerns re: insurance coverage, cost, barriers to compliance Insulin/Injectables (If applicable) * Storage/care of insulin?? * Injection sites? * Site rotation? * Onset, peak, duration * Drawing up insulin? * Injecting insulin/other injectables? * Sharps disposal Continuous blood glucose monitoring (if applicable) Hypoglycemia and Hyperglycemia * Signs and symptoms? * Causes?? * Treatment? * Preventing hypoglycemia? * When to seek medical attention Target Goals: * Blood glucose targets and how you feel when your blood glucose is in and out of your target ranges. * Monitoring and knowing your A1C. * What can make blood glucose go up and down and preventing high and low blood glucose. * Review of blood sugar targets in expected goal range and outside of expected goal range. * Problem solving and preventing hyper/hypoglycemia. * Sick day management of diabetes. * Using blood sugar results in decision making process in managing diabetes. ?Patient was receptive to information provided and participated in the discussion. Asked?appropriate questions and demonstrated good understanding of the topics discussed.? ? Educational Materials: The patient was provided with the following written educational materials: Target Goal handout Smart Goal Assessment:? Patient will identify foods in his current diet that contain carbohydrates by next visit Pt met goal 50% New Smart Goal: Patient will keep use glucometer to test glucose once a day Patient Response to instructions: Comprehension of Instructions: Fair Readiness to make changes:? Contemplating How confident they feel about making changes: Fair Portions of this note were created using voice recognition software, please excuse any words or phrases that may have been misinterpreted. Patient Instructions: Increase post meal physical activity to help with hyperglycemia When glucose levels are high, drink carbohydrate fluids Follow-up with Diabetes Education nurse in 6 weeks', for additional Dexcom G7 sample sensor Coding Level of Care Code Est Pt Level 1 (82691) Diagnoses Uncontrolled type 2 diabetes mellitus with hyperglycemia E11.65 Glycemic state: with hyperglycemia Diabetes E11.9
== END 2024-09-28 10:46 | disposition home or self-care (01) ==
PROVIDERS: PCP Family Medicine; Visit Provider Registered Nurse Diabetes Educator
DX: E11.65 Type 2 diabetes mellitus with hyperglycemia (principal); E11.9 Type 2 diabetes mellitus without complications

== ENCOUNTER → 2024-09-28 10:02 | Outpatient (BNVA) | payer MEDICARE, SELFPAY | PROVIDERS: PCP Family Medicine; Visit Provider Registered Nurse Diabetes Educator | DX: E11.65 Type 2 diabetes mellitus with hyperglycemia (principal) | CPT/HCPCS: 99211 ==

== ENCOUNTER 2024-11-20 09:50 | Outpatient (AMB) | payer MEDICARE, SELFPAY ==
[2024-11-20 10:25] VITALS: BP 152/78; PULSE 87; BMI 26.3
--- NOTE | 2024-11-20 10:25 | MHC.OFFVIS ---
Vital Signs 11/20/24 10:25 Height 5 ft 10 in Weight 182 lb 15.739 oz BMI 26.3 BP 152/78 H Blood Pressure Location Lt brachial Position Sitting Pulse 87 Pulse Source Pulse Oximeter Intake Visit Reasons: bp & DM check/Confirmed Intake Note: Patient present today for Type 2 Diabetes Mellitus. Last Diabetic eye exam: 01/2024 Last Podiatry Visit: Doesn't have one Random Glucose: 1358 mg/dl HgA1C: 8.1% Petal Shaper Hand Required: No Accompanied by: Self / Same As Patient Allergies lisinopril Allergy (Mild, Verified 11/20/24 10:29) Cough Medication List - Last Reconciled 11/20/24 by Evy Junior PA-C amlodipine 10 mg PO DAILY blood pressure monitor Monitor blood pressure as directed blood sugar diagnostic (Modera.couch Verio test strips) Use TID As directed blood-glucose meter (Modera.couch Verio Meter) As directed to test blood sugar, 999 days cholecalciferol (vitamin D3) 25 mcg PO DAILY coenzyme Q10 100 mg PO DAILY ginseng 100 mg PO DAILY glipizide ER 10 mg PO BID 90 days lancets (Modera.couch UltraSoft Lancets) DX: E11.9, test blood sugar once a day, 90 days losartan 100 mg PO DAILY 90 days mecobalamin (vitamin B12) mcg PO metformin 1000 mg AM, 500 mg midday, 1000 mg PM. orally 3 times a day; 90 days simvastatin 40 mg PO DAILY HPI HPI bp & DM check/Confirmed: Details: Patient is a 79-year-old male with a significant past medical history of uncontrolled type 2 diabetes, chronic kidney disease, hyperlipidemia and hypertension presenting today to review labs. CV: Blood pressure today in the office is 152/78 and repeat blood pressure was 138/76. He is currently on losartan 100 mg daily and norvasc 10 mg. Cholesterol is managed with simvastatin 40 mg. No myalgias. Last LFTs and lipids WNL. Endo: His last A1c is 8.1. He is on glipizide 10 mg twice a day, metformin 2500 mg day. Rarely checking blood sugars at home. -Januvia is too expensive. -Jardiance is too expensive -he was diagnosed 4 years ago. No fam hx of dm -eye exam last week -denies any hyper or hypoglycemic events. He felt low 2 years ago and treated it with oj. -had diabetic Education last month and found this helpful. Nephro: He just followed with nephrology. Avoid NSAIDs. [facility], [facility] Medical History (Updated 08/20/24 @ 09:28 by Evy Junior PA-C) Type 2 diabetes mellitus without complications Surgical History No pertinent past surgical history Family History Mother Hyperlipidemia Father Brain cancer Social History Household Members: Spouse Housing: House Alcohol intake: current Alcohol intake frequency: a few times a month Alcohol type: wine Patient Tobacco Use Status: Never used Tobacco e-Cigarette/Vaping Use: Never Used Second Hand Smoke Exposure: No service: No Current occupational status: retired Current occupational exposures/hazards: No Sexual orientation: Unable to collect Gender identity: Unable to collect Cognitive needs: No Hearing needs: No Vision needs: No Physical Exam Vital Signs: Last Vital Signs Pulse 87 11/20/24 10:25 BP 152/78 H 11/20/24 10:25 BMI result Body Mass Index 26.3 Const Orientation/consciousness: patient oriented x3 HEENT Ears: hearing grossly normal bilaterally Neck Thyroid: Thyroid normal Lymphatic: no lymphadenopathy noted Resp Auscultation: clear to auscultation bilaterally Cardio Rate: regular rate Rhythm: regular rhythm Heart sounds: S1 normal heart sound present and S2 normal heart sound present Skin General skin exam: no rashes or lesions noted Neuro General: patient oriented x3, gait normal and no focal motor deficits Results AMB Hemoglobin A1c AMB Hemoglobin A1c 8.1 % Last Edit by BAILEY Pruett on 11/20/24 10:42 Results Reviewed Results Reviewed: Laboratory Last Values Glucose (Clinic) 135 mg/dL (60-115) H 11/20/24 10:32 Hgb A1c (Clinic) 8.1 % (4.0-6.0) H 11/20/24 10:34 Assessment & Plan Assessment & Plan (1) Diabetes type 2, uncontrolled: Code(s): E11.65 - Type 2 diabetes mellitus with hyperglycemia Category: Medical Qualifiers: Glycemic state: with hyperglycemia Qualified Code(s): E11.65 - Type 2 diabetes mellitus with hyperglycemia Plan: We will start patient on Trulicity. Recently changed health insurance so believes he will be able to afford medications. We discussed risks and benefits and adverse effects of this medication including risk of nausea, vomiting, pancreatitis. Continue glipizide. Reduce metformin to a 1000 mg twice a day. Follow up in 1 month. Sooner if needed. (2) Chronic kidney disease, stage 3 unspecified: Code(s): N18.30 - Chronic kidney disease, stage 3 unspecified Category: Medical Qualifiers: Chronic kidney disease stage 3 subtype: stage 3b (GFR 30-44) Qualified Code(s): N18.32 - Chronic kidney disease, stage 3b Plan: We will monitor. Following with Nephrology. Has an appointment next month. (3) HTN (hypertension): Code(s): I10 - Essential (primary) hypertension Category: Medical Qualifiers: Hypertension type: primary hypertension Qualified Code(s): I10 - Essential (primary) hypertension Plan: Elevated above goal today however repeat blood pressure normal. Blood pressures at home have been normal. We will monitor. Orders: Orders AMB Hemoglobin A1c Today E11.65 - Type 2 diabetes mellitus with hyperglycemia, Z13.9 - Encounter for screening, unspecified Medications: New dulaglutide (Trulicity) 0.75 mg (0.5 mL) subcut QWEEK 2 mL 3RF metformin 1,000 mg PO BID 180 tabs 2RF Discontinued dapagliflozin propanediol (Farxiga) Discontinued Reason: Doctor's Order 5 mg PO QAM 30 tabs 3RF metformin Discontinued Reason: Doctor's Order 1000 mg AM, 500 mg midday, 1000 mg PM. orally 3 times a day; 90 days 225 tabs 0RF Patient Instructions: start trulicity once a week - call me if too expensive or if any nausea or vomiting reduce metformin to 1000 mg twice a day continue glipizide 10 mg twice a day Coding Level of Care Code Est Pt Level 4 (41534) Complex EM visit Add On G2211 Diagnoses Uncontrolled type 2 diabetes mellitus with hyperglycemia E11.65 Glycemic state: with hyperglycemia Stage 3b chronic kidney disease N18.32 Chronic kidney disease stage 3 subtype: stage 3b (GFR 30-44) Primary hypertension I10 Hypertension type: primary hypertension
[2024-11-20 10:35] LABS: Glucose, Whole Blood 135 mg/dL (60-115)
== END 2024-11-20 11:07 | disposition home or self-care (01) ==
PROVIDERS: PCP Family Medicine; Visit Provider Physician Assistant
DX: E11.65 Type 2 diabetes mellitus with hyperglycemia (principal); N18.32 Chronic kidney disease, stage 3b; I10 Essential (primary) hypertension; Z13.9 Encounter for screening, unspecified

== ENCOUNTER → 2024-11-20 09:50 | Outpatient (BNVA) | payer MEDICARE, SELFPAY | PROVIDERS: PCP Family Medicine; Visit Provider Physician Assistant | DX: E11.65 Type 2 diabetes mellitus with hyperglycemia (principal); I12.9 Hypertensive chronic kidney disease with stage 1 through stage 4 chronic kidney disease, or unspecified chronic kidney disease; E11.22 Type 2 diabetes mellitus with diabetic chronic kidney disease; N18.32 Chronic kidney disease, stage 3b | CPT/HCPCS: 82947; 83036; 99212 ==

== ENCOUNTER 2024-12-22 09:28 | Outpatient (REF) | payer MEDICARE, SELFPAY ==
--- OUTSIDE RECORDS SUMMARY | 2024-12-22 10:16 | XMS_ITS | Data Portability ---
Author Organization OTTO Watson nathalia [facility] Address [address] [facility] [place] [address] Assessment No assessment recorded. Plan of Treatment Reminders Order Date Submit Date Provider Last Modified By Organization Details Last Modified Time Details Appointments None recorded. Lab None recorded. Referral None recorded. Procedures None recorded. Surgeries None recorded. Imaging None recorded. Medication Orders cephalexin 500 mg capsule 2023 024 [facility], [address] [place] [address], [address], 09:28:52 Patient TargetsNo targets recorded. Patient Instructions Encounter Date Encounter Id Patient Instructions Last Modified By Organization Details Last Modified Time 07/25/2024 [id number] You can take ove r the counter tylenol or ibuprofen per package instructions for the pain. Follow-up with your doctor if no improvement in 1 week. Seek Emergency Medical evaluation for any worsening symptoms. [email or web address] Not available 07/25/2024 09:35:39 Apply a warm compress to the affected area for 15-20 minutes at a time up to 4 times a day. ?Keep area as clean/dry as possible. Follow up with your PCP for wound re-check in 3-5 days, follow up sooner/go directly to ER if any worsening symptoms develop in interim-fever/inc reased pain/swelling/red ness, etc. [email or web address] Not available 07/25/2024 09:28:44 Reason for Referral None Reported. Medical Equipment None Reported. Allergies Allergen ID Allergen Name Allergen Category Reaction Reaction Severity Criticality Documentation Date Start Date Code Code System Note Provider Name and Address Organization Details Recorded Time 798265 losartan medicatio n cough moderate Not available 07/25/2024 07163 RxNorm Arelis castrejon PA [facility] 4 09:04:20 Medications Name Sig Start Date Stop Date Status Note LastModified by Organization Details LastModified Time losartan 50 mg tablet TAKE 1 TABLET BY MOUTH ONCE DAILY TAKE WITH 100 MG TABLET FOR TOTAL DAILY DOSE OF 150 MG active Not Available Not Available No t Available glipizide ER 10 mg tablet, extended release 24 hr TAKE 1 TABLET BY MOUTH TWICE DAILY active Not Available Not Available No t Available amlodipine 5 mg tablet active Not Available Not Available Not Available simvastatin 40 mg tablet TAKE 1 TABLET BY MOUTH ONCE DAILY active Not Available Not Available No t Available cephalexin 500 mg capsule Take 2 capsules every 12 hours by oral route with meal(s) for 7 days, for abscess. 2023 active Not Available Not Available Not Avai lable metformin 1,000 mg tablet TAKE 1 TABLET BY MOUTH IN THE MORNING AND 1/2 (ONE-HALF ) TABLET MIDDAY AND 1 TABLET IN THE EVENING active Not Available Not Available No t Available losartan 100 mg tablet TAKE 1 TABLET BY MOUTH ONCE DAILY TAKE WITH 50 MG FOR TOTAL DAILY DOSE OF 150 MG 07/25 completed Not Available Not Available Not Available Januvia 50 mg tablet active Not Available Not Available No t Available Jardiance 10 mg tablet active Not Available Not Available Not Available Vitals Date Recorded Body height Body mass index (BMI) Body weight Oxygen saturation Oxygen saturation in Arterial blood by Pulse oximetry Body temperature Heart rate Systolic blood pressure Diastolic blood pressure Provider Name and Address Organization Details Last Updated DateTime 4 177.8 cm 26.4 kg/m2 94370 g 99 % 99 % 99.4 [degF] 98 /min 189 mm[Hg] 94 mm[Hg] Arelis Carrillo [facility] 4 09:02:23 Social History Question Answer Notes LastModified by Organizat ion Details LastModified Time Tobacco Smoking Status Never Smoker OTTO Escudero [facility] 07/25/2024 09:06:41 What Is Your Level Of Alcohol Consumption? None Information not available 07/25/2024 Are You Currently Employed? Yes Information not available 07/25/2024 Have You Had A Flu Shot This Season? Yes Information not available 07/25/2024 If No, Would You Like A Flu Shot Today? No Information not available 07/25/2024 What Is Your Relationship Status? Single Information not available 07/25/2024 Are You Passively Exposed To Smoke? No Information no t available 07/25/2024 Do You Use Any Illicit Or Recreational Drugs? No Information not available 07/25/2024 Have You Recently Traveled Abroad? No Information not available 07/25/2024 Do You Or Have You Ever Used Any Other Forms Of Tobacco Or Nicotine? No Information not available 07/25/2024 Sex: Unknown Functional Status None recorded. Mental Status None recorded. Family History Nothing Reported. Medical History No medical history recorded. Past Encounters Encounter ID Performer Location Encounter Start Date Encounter Closed Date Diagnosis/Indication Diagnosis SNOMED-CT Code Diagnosis ICD10 Code Diagnosis Note [id number] [address] [address] 12/08/2018 11:19:28 12/08/2018 14:47:34 [id number] [address] [address] 04/20/2022 12:20:19 04/20/2022 13:28:21 [id number] [address] [address] 11/10/2018 11:23:46 11/10/2018 11:57:25 [id number] [address] [address] 04/08/2018 19:10:26 04/08/2018 20:59:09 [id number] [address] [address] 06/21/2020 15:53:21 06/21/2020 17:40:59 [id number] [address] [facility] [address] [place] [address] 06/22/2022 08:54:14 06/22/2022 09:56:52 [id number] [address] [address] 04/21/2019 13:56:39 04/21/2019 14:43:07 [id number] [address] [place] [address] 02/18/2021 09:02:31 02/18/2021 10:39:31 [id number] [address] [place] [address] 06/15/2022 13:26:13 06/15/2022 19:14:35 [id number] [address] [place] [address] 12/26/2017 19:04:11 12/26/2017 19:39:09 [id number] [address] [facility] [address] [facility] [place] [address] 06/29/2020 08:05:48 06/29/2020 08:16:24 [id number] ROOSEVELT LEYVA [place] [address] [address] 07/25/2024 08:31:24 07/25/2024 09:31:57 Abscess of skin and/or subcutaneous tissue 69776937 L02.91 Hypertensive disorder 38 138886 I10 Followed by his PCP and cardiologi . Health Concerns Section Related Observation LastModified by Organization Detai ls LastModified Time None Recorded Concern Status LastModified by Organization Details LastModified Time None Recorded Advance Directives Directive None Recorded Payers Encounter Date Sequence Insurance Name Policy Number Policy Avalos Covered Member ID Avalos Member ID Guarantor Name 07/25/2024 1 [facility] (MEDICARE REPLACEMENT/A DVANTAGE - PPO) [id number] Bear Anna [id number] Bear Anna Notes Date Note Type Note Provider Name and Address Organization Details Recorded Time 07/25/2024 text/html 79 yo M c/o pain and swelling on his right lower jaw that started yesterday. No dental pain but his gum line is sore. Afebrile. ROOSEVELT LEYVA MD [facility], [address], [place] - [facility] 07/25/2024 09:53:33
[2024-12-22 10:59] LABS: MANUAL DIFF FLAG NO
[2024-12-22 11:18] LABS: Basophils Absolute Auto 0.1 X10*3/uL (0.0-0.2); Basophils Percent Auto 0.5 % (0-2); Eosinophils Absolute Auto 0.3 X10*3/uL (0.0-0.4); Eosinophils Percent Auto 3.3 % (0-4); Hematocrit 36.6 % (42.0-52.0); Hemoglobin 12.1 g/dl (14.0-18.0); Imm Gran Abs Auto 0.04 X10*3/uL (0.00-0.03); Imm Gran Pct Auto 0.4 % (0.0-0.4); Lymphocytes Percent Auto 21.2 % (20-40); Mean Corpuscular HGB Conc 33.1 g/dl (31.0-36.0); Mean Corpuscular Hemoglobin 30.4 pg (27.0-33.0); Mean Platelet Volume 9.6 fL (9.4-12.4); Monocytes Absolute Auto 0.8 X10*3/uL (0.1-1.2); Monocytes Percent Auto 8.3 % (2-11); Neutrophils Absolute Auto 6.3 x10*3/uL (2.0-8.3); Neutrophils Percent Auto 66.3 % (45-73); Platelet Count 300 X10*3/uL (160-400); Red Blood Count 3.98 X10*6/uL (4.60-5.80); Red Cell Distribution Width 13.5 % (11.0-16.0); White Blood Count 9.6 X10*3/uL (4.8-10.8)
[2024-12-22 11:49] LABS: Estimated Average Glucose 169 mg/dL; Hemoglobin A1C 208.2825 umol/L; Hemoglobin A1c % 7.5 % (<6.0)
[2024-12-22 12:04] LABS: Anion Gap 11 (12-20); Blood Urea Nitrogen 21 mg/dL (9-16); Calcium 9.9 mg/dL (8.4-10.2); Carbon Dioxide 25 mmol/L (22-29); Chloride 109 mmol/L (96-108); Estimated Glomerular Filt Rate > 60; Iron 48 mcg/dL (45-160); Percent Iron Saturation 16 % (15-50); Potassium 4.3 mmol/L (3.3-5.1); Sodium 141 mmol/L (135-145); Total Iron Binding Capacity 309 mcg/dL (228-428); Unsaturated Iron Binding 261 ug/dL
[2024-12-22 12:17] LABS: Ferritin 38 ng/mL (20-250)
[2024-12-22 12:42] LABS: Folate 19.9 ng/mL (> or = 4.0); Vitamin B12 431 pg/mL (200-900)
[2024-12-23 05:34] LABS: C Peptide 4.66 ng/mL (0.80-3.85)
[2024-12-27 00:19] LABS: Islet Cell Antibody Screen NEGATIVE (NEGATIVE)
[2024-12-27 20:33] LABS: Glutamic acid decarboxylase Ab <5 IU/mL (<5)
== END 2024-12-22 09:29 | disposition home or self-care (01) ==
LOC: HO.WFDLDS 09:28
PROVIDERS: Referring Provider Internal Medicine Hypertension Specialist; Visit Provider Physician Assistant
DX: N18.32 Chronic kidney disease, stage 3b (principal); E11.65 Type 2 diabetes mellitus with hyperglycemia; D64.9 Anemia, unspecified
CPT/HCPCS: 36415; 80051; 82310; 82565; 82607; 82728; 82746; 83036; 83540; 84520; 84681; 85025; 86341

== ENCOUNTER 2024-12-25 11:36 | Outpatient (AMB) | payer MEDICARE, SELFPAY ==
[2024-12-25 11:41] VITALS: BP 126/66; PULSE 82; O2SAT 96; BMI 26.4
--- NOTE | 2024-12-25 11:41 | A.OFFVIS_ITS ---
Vital Signs 12/25/24 11:41 Height 5 ft 10 in Weight 184 lb 4.903 oz BMI 26.4 BP 126/66 Blood Pressure Location Lt brachial Position Sitting Pulse 82 Pulse Source Pulse Oximeter Pulse Oximetry (%) 96 Oxygen Delivery Method Room Air Intake Visit Reasons: DM Intake Note: Patient present today for Type 2 Diabetes Mellitus Last Diabetic eye exam: 10/2024 Last Podiatry Visit: Doesn't have one Random Glucose: 111 mg/dl HgA1C: 8.1% 11/20/24 Strategic Sourcing Manager Required: No Accompanied by: Self / Same As Patient Allergies lisinopril Allergy (Mild, Verified 12/25/24 11:45) Cough dulaglutide [From Trulicity] Adverse Reaction (Mild, Verified 12/25/24 11:45) Vomiting HPI HPI DM: Details: Patient is a 79-year-old male with a significant past medical history of uncontrolled type 2 diabetes, chronic kidney disease, hyperlipidemia and hypertension presenting today for dm review. CV: Blood pressure today in the office is 126/66 and repeat blood pressure was 138/76. He is currently on losartan 100 mg daily and norvasc 10 mg. Cholesterol is managed with simvastatin 40 mg. No myalgias. Last LFTs and lipids WNL. Endo: His last A1c is 7.5. He is on glipizide 10 mg twice a day, metformin 2000 mg day. Rarely checking blood sugars at home. -trulicity caused vomiting -Januvia is too expensive. -Jardiance is too expensive -he was diagnosed 4 years ago. No fam hx of dm Up to date eye exam denies any hyper or hypoglycemic events. He felt low 2 years ago and treated it with oj. had diabetic Education and found this helpful. Nephro: He just followed with nephrology. Avoid NSAIDs. [facility] Medical History (Updated 08/20/24 @ 09:28 by Evy Junior PA-C) Type 2 diabetes mellitus without complications Surgical History No pertinent past surgical history Family History Mother Hyperlipidemia Father Brain cancer Social History Household Members: Spouse Housing: House Alcohol intake: current Alcohol intake frequency: a few times a month Alcohol type: wine Patient Tobacco Use Status: Never used Tobacco e-Cigarette/Vaping Use: Never Used Second Hand Smoke Exposure: No service: No Current occupational status: retired Current occupational exposures/hazards: No Sexual orientation: Unable to collect Gender identity: Unable to collect Cognitive needs: No Hearing needs: No Vision needs: No Physical Exam Vital Signs: Last Vital Signs Pulse 82 12/25/24 11:41 BP 126/66 12/25/24 11:41 Pulse Ox 96 12/25/24 11:41 Oxygen Delivery Method Room Air 12/25/24 11:41 BMI result Body Mass Index 26.4 Const Orientation/consciousness: patient oriented x3 HEENT Ears: hearing grossly normal bilaterally Neck Thyroid: Thyroid normal Lymphatic: no lymphadenopathy noted Resp Auscultation: clear to auscultation bilaterally Cardio Rate: regular rate Rhythm: regular rhythm Heart sounds: S1 normal heart sound present and S2 normal heart sound present Skin General skin exam: no rashes or lesions noted Neuro General: patient oriented x3, gait normal and no focal motor deficits Results Reviewed Results Reviewed: Laboratory Tests 12/22/24 09:30 Sodium 141 Potassium 4.3 Chloride 109 H Carbon Dioxide 25 Anion Gap 11 L BUN 21 H Creatinine 1.11 Estimated GFR > 60 Estimat Average Glucose 169 Hemoglobin A1c % 7.5 H C-Peptide 4.66 H Laboratory Tests 07/16/24 07:45 Urine Creatinine 179.46 Urine Microalbumin 20.0 Microalb/Creat Ratio 11.1 Laboratory Tests 05/23/23 12/22/24 07:02 09:30 WBC 9.6 RBC 3.98 L Hgb 12.1 L Hct 36.6 L Plt Count 300 Absolute Retic 0.097 H Percent Retic 2.4 H Immature Retic Fraction 11.6 Retic Hgb Equivalent 35.2 H Assessment & Plan Assessment & Plan (1) Diabetes type 2, uncontrolled: Code(s): E11.65 - Type 2 diabetes mellitus with hyperglycemia Category: Medical Qualifiers: Glycemic state: with hyperglycemia Qualified Code(s): E11.65 - Type 2 diabetes mellitus with hyperglycemia Plan: He is going to start the Ozempic. Continue glipizide and metformin dosing. A1c has improved but not at goal. He states that he is paying more attention to his diet. Encouraged him to reduce carbohydrate and sugar intake. Follow up 3 months for diabetes management. Sooner if needed. (2) Anemia: Code(s): D64.9 - Anemia, unspecified Category: Medical Qualifiers: Anemia type: unspecified type Qualified Code(s): D64.9 - Anemia, unspecified Plan: Anemia is stable. Reports colonoscopy around 10 years ago. Iron and B12 WNL. Referral to Hematology (3) HTN (hypertension): Code(s): I10 - Essential (primary) hypertension Category: Medical Qualifiers: Hypertension type: primary hypertension Qualified Code(s): I10 - Essential (primary) hypertension Plan: WNL. Continue current regimen (4) Hyperlipidemia: Code(s): E78.5 - Hyperlipidemia, unspecified Category: Medical Plan: He is having his lipids and LFTs checked tomorrow. We will follow up pending test results. Continue with simvastatin. Orders: Referrals Hematology & Oncology Referral D64.9 - Anemia, unspecified Coding Level of Care Code Est Pt Level 4 (48954) Complex EM visit Add On G2211 Diagnoses Uncontrolled type 2 diabetes mellitus with hyperglycemia E11.65 Glycemic state: with hyperglycemia Anemia, unspecified type D64.9 Anemia type: unspecified type Primary hypertension I10 Hypertension type: primary hypertension Hyperlipidemia E78.5
[2024-12-25 11:51] LABS: Glucose, Whole Blood 111 mg/dL (60-115)
--- OUTSIDE RECORDS SUMMARY | 2024-12-25 12:41 | XMS_ITS | Data Portability ---
Author Organization [facility]O sloan [address] Address [address] [facility] [place] [address] Assessment No assessment recorded. Plan of Treatment Reminders Order Date Submit Date Provider Last Modified By Organization Details Last Modified Time Details Appointments None recorded. Lab None recorded. Referral None recorded. Procedures None recorded. Surgeries None recorded. Imaging None recorded. Medication Orders cephalexin 500 mg capsule 2023 024 [facility], [address] [place] [address], [address], 09:28:52 Patient TargetsNo targets recorded. Patient Instructions Encounter Date Encounter Id Patient Instructions Last Modified By Organization Details Last Modified Time 07/25/2024 [id number] You can take ove r the counter tylenol or ibuprofen per package instructions for the pain. Follow-up with your doctor if no improvement in 1 week. Seek Emergency Medical evaluation for any worsening symptoms. [email or web address] Not available 07/25/2024 09:35:39 Apply a warm compress to the affected area for 15-20 minutes at a time up to 4 times a day. ?Keep area as clean/dry as possible. Follow up with your PCP for wound re-check in 3-5 days, follow up sooner/go directly to ER if any worsening symptoms develop in interim-fever/inc reased pain/swelling/red ness, etc. [email or web address] Not available 07/25/2024 09:28:44 Reason for Referral None Reported. Medical Equipment None Reported. Allergies Allergen ID Allergen Name Allergen Category Reaction Reaction Severity Criticality Documentation Date Start Date Code Code System Note Provider Name and Address Organization Details Recorded Time 751800 losartan medicatio n cough moderate Not available 07/25/2024 74055 RxNorm Arelis castrejon PA Ger[facility] 4 09:04:20 Medications Name Sig Start [...] Updated DateTime 4 177.8 cm 26.4 kg/m2 71589 g 99 % 99 % 99.4 [degF] [...] SNOMED-CT Code Diagnosis ICD10 Code Diagnosis Note [id number] [address] [address] 12/08/2018 11:19:28 12/08/2018 14:47:34 [id number] [address] [address] 04/20/2022 12:20:19 04/20/2022 13:28:21 [id number] [address] [address] 11/10/2018 11:23:46 11/10/2018 11:57:25 [id number] [address] [address] 04/08/2018 19:10:26 04/08/2018 20:59:09 [id number] [address] [address] 06/21/2020 15:53:21 06/21/2020 17:40:59 [id number] [address] [facility] [address] [place] [address] 06/22/2022 08:54:14 06/22/2022 09:56:52 [id number] [address] [address] 04/21/2019 13:56:39 04/21/2019 14:43:07 [id number] [address] [place] [address] 02/18/2021 09:02:31 02/18/2021 10:39:31 [id number] [address] [place] [address] 06/15/2022 13:26:13 06/15/2022 19:14:35 [id number] [address] [place] [address] 12/26/2017 19:04:11 12/26/2017 19:39:09 [id number] [address] [facility] [address] [facility] [place] [address] 06/29/2020 08:05:48 06/29/2020 08:16:24 [id number] ROOSEVELT LEYVA MD [address] [address] 07/25/2024 08:31:24 07/25/2024 09:31:57 Abscess of skin and/or subcutaneous tissue 85620189 L02.91 Hypertensive disorder 38 659078 I10 Followed by his PCP and cardiologi . Health Concerns Section Related Observation LastModified by Organization Detai ls LastModified Time None Recorded Concern Status LastModified by Organization Details LastModified Time None Recorded Advance Directives Directive None Recorded Payers Encounter Date Sequence Insurance Name Policy Number Policy Avalos Covered Member ID Avalos Member ID Guarantor Name 07/25/2024 1 [facility] (MEDICARE REPLACEMENT/A DVANTAGE - PPO) [id number] Bear Anna [id number] Bear Anna Notes Date Note Type Note Provider Name and Address Organization Details Recorded Time 07/25/2024 text/html 79 yo M c/o pain and swelling on his right lower jaw that started yesterday. No dental pain but his gum line is sore. Afebrile. ROOSEVELT LEYVA MD [facility] [place], [address], [place] - [facility] 07/25/2024 09:53:33
== END 2024-12-25 12:07 | disposition home or self-care (01) ==
PROVIDERS: PCP Family Medicine; Visit Provider Physician Assistant
DX: E11.65 Type 2 diabetes mellitus with hyperglycemia (principal); D64.9 Anemia, unspecified; I10 Essential (primary) hypertension; E78.5 Hyperlipidemia, unspecified

== ENCOUNTER → 2024-12-25 11:36 | Outpatient (BNVA) | payer MEDICARE, SELFPAY | PROVIDERS: PCP Family Medicine; Visit Provider Physician Assistant | DX: E11.65 Type 2 diabetes mellitus with hyperglycemia (principal); D64.9 Anemia, unspecified; I10 Essential (primary) hypertension; E78.5 Hyperlipidemia, unspecified | CPT/HCPCS: 82947; 99212 ==

== ENCOUNTER 2024-12-26 08:32 | Outpatient (REF) | payer MEDICARE, SELFPAY ==
[2024-12-26 10:31] LABS: Alanine Aminotransferase 17 U/L (0-40); Albumin Level 4.2 g/dL (3.5-5.0); Alkaline Phosphatase 62 U/L (39-117); Anion Gap 12 (12-20); Aspartate Amino Transferase 20 U/L (5-37); Bilirubin Total 0.4 mg/dL (0.0-1.0); Blood Urea Nitrogen 25 mg/dL (9-16); Calcium 9.7 mg/dL (8.4-10.2); Carbon Dioxide 24 mmol/L (22-29); Chloride 107 mmol/L (96-108); Estimated Glomerular Filt Rate 55; Glucose Fasting 149 mg/dL (60-99); Potassium 4.4 mmol/L (3.3-5.1); Sodium 139 mmol/L (135-145); Total Protein 7.7 g/dL (6.5-8.0)
== END 2024-12-26 08:33 | disposition home or self-care (01) ==
LOC: HO.LAB 08:32
PROVIDERS: PCP Family Medicine; Visit Provider Physician Assistant
DX: N18.30 Chronic kidney disease, stage 3 unspecified (principal); D64.9 Anemia, unspecified; E11.65 Type 2 diabetes mellitus with hyperglycemia
CPT/HCPCS: 36415; 80053

== ENCOUNTER 2024-12-31 11:42 | Outpatient (AMB) | payer MEDICARE, SELFPAY ==
[2024-12-31 11:45] VITALS: BP 144/64; PULSE 83; O2SAT 98; BMI 26.1
--- NOTE | 2024-12-31 11:45 | HO.NEPHOV_ITS ---
Vital Signs 12/31/24 11:45 12/31/24 12:04 Height 5 ft 10 in Weight 182 lb BMI 26.1 BP 144/64 H 130/70 Blood Pressure Location Rt brachial Rt brachial Position Sitting Sitting Pulse 83 Pulse Source Pulse Oximeter Pulse Oximetry (%) 98 Oxygen Delivery Method Room Air Intake Visit Reasons: CKD/ Conf Machine Turner Required: No Accompanied by: Self / Same As Patient Allergies lisinopril Allergy (Mild, Verified 12/31/24 11:50) Cough dulaglutide [From Trulicity] Adverse Reaction (Mild, Verified 12/31/24 11:50) Vomiting Medication List - Last Reconciled 12/31/24 by Ovidio Wilson MD amlodipine 10 mg PO DAILY blood pressure monitor Monitor blood pressure as directed blood sugar diagnostic ([employer] Verio test strips) Use TID As directed blood-glucose meter ([employer] Verio Meter) As directed to test blood sugar, 999 days cholecalciferol (vitamin D3) 25 mcg PO DAILY coenzyme Q10 100 mg PO DAILY ginseng 100 mg PO DAILY glipizide ER 10 mg PO BID 90 days lancets ([employer] UltraSoft Lancets) DX: E11.9, test blood sugar once a day, 90 days losartan 100 mg PO DAILY 90 days mecobalamin (vitamin B12) mcg PO metformin 1,000 mg PO BID semaglutide (Ozempic) 0.25 mg (0.368 mL) subcut QWEEK simvastatin 40 mg PO DAILY HPI Comments Details: Bear is a pleasant 79-year-old man with a history of hypertension diabetes mellitus. He has been referred for evaluation of CKD. Baseline creatinine is around 1.5 mg/dL until recently. Most recent creatinine was 1.5 which was bumped from the baseline. He is on losartan 100 mg for the past 1 year. Amlodipine 5 mg was added recently He has been having increased frequency of micturition. No urgency No hematuria. 12/31/24 Tried Trulicity and did not tolerate Ozempic has been prescribed Overall, he is felling well. No new complaints today [facility] Medical History (Updated 08/20/24 @ 09:28 by Evy Junior PA-C) Type 2 diabetes mellitus without complications Surgical History No pertinent past surgical history Family History Mother Hyperlipidemia Father Brain cancer Social History Household Members: Spouse Housing: House Alcohol intake: current Alcohol intake frequency: a few times a month Alcohol type: wine Patient Tobacco Use Status: Never used Tobacco e-Cigarette/Vaping Use: Never Used Second Hand Smoke Exposure: No service: No Current occupational status: retired Current occupational exposures/hazards: No Sexual orientation: Unable to collect Gender identity: Unable to collect Cognitive needs: No Hearing needs: No Vision needs: No Physical Exam Vital Signs: Last Vital Signs Pulse 83 12/31/24 11:45 BP 144/64 H 12/31/24 11:45 Pulse Ox 98 12/31/24 11:45 Oxygen Delivery Method Room Air 12/31/24 11:45 BMI result Body Mass Index 26.1 Comfortable Neck supple no JVD. Lungs entry equal no rales. Heart S1-S2 heard no gallop or rub. Abdomen soft nontender. Neuro alert awake oriented. No asterixis. Extremities no edema. Results Reviewed Nephrology Results: Hgb 12.1 g/dl (14.0-18.0) L 12/22/24 WBC 9.6 X10*3/uL (4.8-10.8) 12/22/24 Plt Count 300 X10*3/uL (160-400) 12/22/24 Sodium 139 mmol/L (135-145) 12/26/24 Potassium 4.4 mmol/L (3.3-5.1) 12/26/24 Chloride 107 mmol/L (96-108) 12/26/24 Carbon Dioxide 24 mmol/L (22-29) 12/26/24 BUN 25 mg/dL (9-16) H 12/26/24 Creatinine 1.26 mg/dL (0.5-1.4) 12/26/24 Calcium 9.7 mg/dL (8.4-10.2) 12/26/24 Assessment & Plan Assessment & Plan (1) Chronic kidney disease, stage 3 unspecified: Code(s): N18.30 - Chronic kidney disease, stage 3 unspecified Category: Medical Qualifiers: Chronic kidney disease stage 3 subtype: stage 3b (GFR 30-44) Qualified Code(s): N18.32 - Chronic kidney disease, stage 3b Plan . 79-year-old man with a history of hypertension with diabetes mellitus with CKD. He has no significant proteinuria. Underlying glomerular nephritis or interstitial disease seem unlikely. Creatinine is down to 1.2 Probably his baseline No significant proteinuria renal ultrasonogram to assess echogenicity and to rule out hydronephrosis. Images reviewed- appears normal. Continue with ARB SGLT-2 inhibitor has been prescribed, but has not taken it yet due to cost factor At this point the goal is to slow the portion disease Maintain blood pressure 130/80 Continue to avoid nephrotoxic agents including NSAIDs. Keep intake more than output. \ Coding Level of Care Code Est Pt Level 4 (14606) Diagnoses Stage 3b chronic kidney disease N18.32 Chronic kidney disease stage 3 subtype: stage 3b (GFR 30-44)
[2024-12-31 12:04] VITALS: BP 130/70
--- OUTSIDE RECORDS SUMMARY | 2024-12-31 14:14 | XMS_ITS | Data Portability ---
Author Organization [facility] Address [address] [place] [address] Assessment No assessment recorded. Plan of Treatment Reminders Order Date Submit Date Provider Last Modified By Organization Details Last Modified Time Details Appointments None recorded. Lab None recorded. Referral None recorded. Procedures None recorded. Surgeries None recorded. Imaging None recorded. Medication Orders cephalexin 500 mg capsule 2023 024 [facility], [address] [place] [address], [address], 09:28:52 Patient TargetsNo targets recorded. Patient Instructions Encounter Date Encounter Id Patient Instructions Last Modified By Organization Details Last Modified Time 07/25/2024 [id number] You can take ove r the counter tylenol or ibuprofen per package instructions for the pain. Follow-up with your doctor if no improvement in 1 week. Seek Emergency Medical evaluation for any worsening symptoms. [email or web address] Not available 07/25/2024 09:35:39 Apply a warm compress to the affected area for 15-20 minutes at a time up to 4 times a day. ?Keep area as clean/dry as possible. Follow up with your PCP for wound re-check in 3-5 days, follow up sooner/go directly to ER if any worsening symptoms develop in interim-fever/inc reased pain/swelling/red ness, etc. [email or web address] Not available 07/25/2024 09:28:44 Reason for Referral None Reported. Medical Equipment None Reported. Allergies Allergen ID Allergen Name Allergen Category Reaction Reaction Severity Criticality Documentation Date Start Date Code Code System Note Provider Name and Address Organization Details Recorded Time 934027 losartan medicatio n cough moderate Not available 07/25/2024 22340 RxNorm Arelis castrejon PA [facility] [employer] [facility] 4 09:04:20 Medications Name Sig Start [...] Updated DateTime 4 177.8 cm 26.4 kg/m2 34574 g 99 % 99 % 99.4 [degF] [...] SNOMED-CT Code Diagnosis ICD10 Code Diagnosis Note [id number] [address] [address] 12/08/2018 11:19:28 12/08/2018 14:47:34 [id number] [address] [address] 04/20/2022 12:20:19 04/20/2022 13:28:21 [id number] [address] [address] 11/10/2018 11:23:46 11/10/2018 11:57:25 [id number] [address] [address] 04/08/2018 19:10:26 04/08/2018 20:59:09 [id number] [address] [address] 06/21/2020 15:53:21 06/21/2020 17:40:59 [id number] [address] [address] [place] [address] 06/22/2022 08:54:14 06/22/2022 09:56:52 [id number] [address] [address] 04/21/2019 13:56:39 04/21/2019 14:43:07 [id number] [address] [place] [address] 02/18/2021 09:02:31 02/18/2021 10:39:31 [id number] [address] [place] [address] 06/15/2022 13:26:13 06/15/2022 19:14:35 [id number] [address] [place] [address] 12/26/2017 19:04:11 12/26/2017 19:39:09 [id number] [address] [facility] [address] [facility] [place] [address] 06/29/2020 08:05:48 06/29/2020 08:16:24 [id number] ROOSEVELT LEYVA MD [address] [address] 07/25/2024 08:31:24 07/25/2024 09:31:57 Abscess of skin and/or subcutaneous tissue 61682151 L02.91 Hypertensive disorder 38 037646 I10 Followed by his PCP and cardiologi . Health Concerns Section Related Observation LastModified by Organization Detai ls LastModified Time None Recorded Concern Status LastModified by Organization Details LastModified Time None Recorded Advance Directives Directive None Recorded Payers Encounter Date Sequence Insurance Name Policy Number Policy Avalos Covered Member ID Avalos Member ID Guarantor Name 07/25/2024 1 [facility] (MEDICARE REPLACEMENT/A DVANTAGE - PPO) [id number] Bear Anna [id number] Bear Anna Notes Date Note Type Note Provider Name and Address Organization Details Recorded Time 07/25/2024 text/html 79 yo M c/o pain and swelling on his right lower jaw that started yesterday. No dental pain but his gum line is sore. Afebrile. ROOSEVELT LEYVA MD [facility] [place], [address], [place] - [facility] 07/25/2024 09:53:33
== END 2024-12-31 12:07 | disposition home or self-care (01) ==
PROVIDERS: PCP Family Medicine; Visit Provider Internal Medicine Hypertension Specialist
DX: N18.32 Chronic kidney disease, stage 3b (principal)
CPT/HCPCS: 99214

== ENCOUNTER → 2024-12-31 11:42 | Outpatient (BNVA) | payer MEDICARE, SELFPAY | PROVIDERS: PCP Family Medicine; Visit Provider Internal Medicine Hypertension Specialist | DX: N18.32 Chronic kidney disease, stage 3b (principal) | CPT/HCPCS: 99212 ==

== ENCOUNTER → 2025-01-27 10:17 | Outpatient (BNV) | payer MEDICARE, SELFPAY | PROVIDERS: Referring Provider Physician Assistant; Visit Provider Internal Medicine | DX: D64.9 Anemia, unspecified (principal); N18.30 Chronic kidney disease, stage 3 unspecified | CPT/HCPCS: 99204; G2211 ==

== ENCOUNTER 2025-03-26 10:54 | Outpatient (AMB) | payer MEDICARE, SELFPAY ==
[2025-03-26 10:56] VITALS: BP 140/90; PULSE 85; O2SAT 98; BMI 26.0
--- NOTE | 2025-03-26 10:56 | MHC.OFFVIS ---
Vital Signs 03/26/25 10:56 Height 5 ft 10 in Weight 180 lb 15.992 oz BMI 26.0 BP 140/90 H Blood Pressure Location Lt brachial Position Sitting Pulse 85 Pulse Source Pulse Oximeter Pulse Oximetry (%) 98 Oxygen Delivery Method Room Air Intake Visit Reasons: DM Intake Note: Patient present today for Type 2 Diabetes Mellitus Last Diabetic eye exam: 01/2025 Last Podiatry Visit: Doesn't have one Random Glucose: 63 mg/dl @ 11:00am 61 mg/dl @11:17am 83 mg/dl @11:22 HgA1C: 7.1% Store Keeper Required: No Accompanied by: Self / Same As Patient Allergies lisinopril Allergy (Mild, Verified 03/26/25 11:00) Cough dulaglutide [From [facility]] Adverse Reaction (Mild, Verified 03/26/25 11:00) Vomiting Medication List - Last Reconciled 03/26/25 by Evy Junior PA-C amlodipine 10 mg PO DAILY blood pressure monitor Monitor blood pressure as directed blood sugar diagnostic ([employer] Verio test strips) Use TID As directed blood-glucose meter ([employer]Touch Verio Meter) As directed to test blood sugar, 999 days cholecalciferol (vitamin D3) 25 mcg PO DAILY coenzyme Q10 100 mg PO DAILY ginseng 100 mg PO DAILY lancets ([employer]Touch UltraSoft Lancets) DX: E11.9, test blood sugar once a day, 90 days losartan 100 mg PO DAILY 90 days mecobalamin (vitamin B12) 500 mcg PO DAILY metformin 1,000 mg PO BID semaglutide (Ozempic) 0.25 mg (0.368 mL) subcut QWEEK simvastatin 40 mg PO DAILY HPI HPI DM: Details: Patient is a 79-year-old male with a significant past medical history of uncontrolled type 2 diabetes, chronic kidney disease, hyperlipidemia and hypertension presenting today for dm review. CV: Blood pressure today in the office is 126/66 and repeat blood pressure was 138/76. He is currently on losartan 100 mg daily and norvasc 10 mg. Cholesterol is managed with simvastatin 40 mg. No myalgias. Last LFTs and lipids WNL. Endo: His last A1c is 7.1. He is on glipizide 10 mg twice a day, metformin 2000 mg day, and Ozempic 0.25 mg weekly. -he states that he has had a few episodes of what he thinks are low blood sugars. It is usually triggered around mid day or end of the day if he has not eaten anything for awhile. He states that he will then eat something like a donut or chocolate to elevate his blood sugar. He does not check his actual blood sugars. His symptoms do resolve with eating. Rarely checking blood sugars at home. -trulicity caused vomiting -Januvia is too expensive. -Jardiance is too expensive -he was diagnosed 4 years ago. No fam hx of dm Up to date eye exam denies any hyper or hypoglycemic events. He felt low 2 years ago and treated it with oj. had diabetic Education and found this helpful. Nephro: He just followed with nephrology. Avoid NSAIDs. [facility] Medical History (Updated 01/27/25 @ 12:32 by Gill Ren MD) Type 2 diabetes mellitus without complications Surgical History No pertinent past surgical history Family History Mother Hyperlipidemia Father Brain cancer Social History Household Members: Spouse and Significant Other Housing: House Alcohol intake: current Alcohol intake frequency: a few times a month Alcohol type: wine Patient Tobacco Use Status: Never used Tobacco e-Cigarette/Vaping Use: Never Used Second Hand Smoke Exposure: No service: No Current occupational status: retired Current occupational exposures/hazards: No Sexual orientation: Unable to collect Gender identity: Unable to collect Cognitive needs: No Hearing needs: No Vision needs: No Physical Exam Vital Signs: Last Vital Signs Pulse 85 03/26/25 10:56 BP 140/90 H 03/26/25 10:56 Pulse Ox 98 03/26/25 10:56 Oxygen Delivery Method Room Air 03/26/25 10:56 BMI result Body Mass Index 26.0 Const Orientation/consciousness: patient oriented x3 HEENT Ears: hearing grossly normal bilaterally Neck Thyroid: Thyroid normal Lymphatic: no lymphadenopathy noted Resp Auscultation: clear to auscultation bilaterally Cardio Rate: regular rate Rhythm: regular rhythm Heart sounds: S1 normal heart sound present and S2 normal heart sound present Skin General skin exam: no rashes or lesions noted Neuro General: patient oriented x3, gait normal and no focal motor deficits Results AMB Hemoglobin A1c AMB Hemoglobin A1c 7.1 % Last Edit by BAILEY Pruett on 03/26/25 11:12 Results Reviewed Results Reviewed: Laboratory Last Values Glucose (Clinic) 61 mg/dL (60-115) 03/26/25 11:18 Hgb A1c (Clinic) 7.1 % (4.0-6.0) H 03/26/25 11:05 Laboratory Tests 07/16/24 07/16/24 12/26/24 07:39 07:45 08:49 Sodium 139 Potassium 4.4 Chloride 107 Carbon Dioxide 24 Anion Gap 12 BUN 25 H Creatinine 1.26 Estimated GFR 55 Fasting Glucose 149 H Triglycerides 88 Cholesterol 137 LDL Cholesterol, Calc 78 HDL Cholesterol 42 Urine Creatinine 179.46 Urine Microalbumin 20.0 Microalb/Creat Ratio 11.1 Assessment & Plan Assessment & Plan (1) Diabetes type 2, uncontrolled: Code(s): E11.65 - Type 2 diabetes mellitus with hyperglycemia Category: Medical Qualifiers: Glycemic state: with hyperglycemia Qualified Code(s): E11.65 - Type 2 diabetes mellitus with hyperglycemia Plan: Blood sugar today in the office initially is it 63 and he states he has no symptoms. He did take metformin and glipizide this morning. He did not eat much for breakfast and has not yet had lunch. He was given 1 cup of orange juice which resulted in a blood sugar of 61 after 20 minutes. He is asymptomatic. I then gave him 2 packages of Tacho crackers and another orange juice and bs increased to 83. d/c glipizide increase ozempic to 0.5 mg weekly continue metformin 1000 mg twice a day Advised following up if blood sugars are still feeling low. He has testing supplies at home and does feel comfortable checking his blood sugars. I have encouraged him to test when he feels that his glucose maybe off. We reviewed signs and symptoms of hyper and hypoglycemia that would require emergent medical treatment. return in 2-3 months labs prior to appointment (2) HTN (hypertension): Code(s): I10 - Essential (primary) hypertension Category: Medical Qualifiers: Hypertension type: primary hypertension Qualified Code(s): I10 - Essential (primary) hypertension Plan: wnl continue current plan. Orders: Orders AMB Hemoglobin A1c Today E11.65 - Type 2 diabetes mellitus with hyperglycemia, E11.9 - Type 2 diabetes mellitus without complications, Z13.9 - Encounter for screening, unspecified Lipid Panel Today E11.65 - Type 2 diabetes mellitus with hyperglycemia, I10 - Essential (primary) hypertension Microalbumin, Random (w Creat) Today E11.65 - Type 2 diabetes mellitus with hyperglycemia, I10 - Essential (primary) hypertension Comprehensive [place]. Panel Fast Today E11.65 - Type 2 diabetes mellitus with hyperglycemia, I10 - Essential (primary) hypertension Hemoglobin A1c Today E11.65 - Type 2 diabetes mellitus with hyperglycemia, I10 - Essential (primary) hypertension, R73.01 - Impaired fasting glucose Medications: New semaglutide (Ozempic) 0.5 mg (0.736 mL) subcut QWEEK 3 mL 5RF Discontinued semaglutide (Ozempic) Discontinued Reason: Doctor's Order 0.25 mg (0.368 mL) subcut QWEEK 3 mL 0RF Coding Level of Care Code Est Pt Level 4 (05321) Complex EM visit Add On G2211 Diagnoses Uncontrolled type 2 diabetes mellitus with hyperglycemia E11. Glycemic state: with hyperglycemia Primary hypertension I10 Hypertension type: primary hypertension
--- OUTSIDE RECORDS SUMMARY | 2025-03-26 11:00 | XMS_ITS | Data Portability ---
Author Organization [facility] [address] Address [address] [facility] [place] [address] Assessment No assessment recorded. Plan of Treatment Reminders Order Date Submit Date Provider Last Modified By Organization Details Last Modified Time Details Appointments None recorded. Lab None recorded. Referral None recorded. Procedures None recorded. Surgeries None recorded. Imaging None recorded. Medication Orders cephalexin 500 mg capsule 2023 024 [facility], [address] [place] [address], [address], 09:28:52 Patient TargetsNo targets recorded. Patient Instructions Encounter Date Encounter Id Patient Instructions Last Modified By Organization Details Last Modified Time 07/25/2024 [id number] You can take ove r the counter tylenol or ibuprofen per package instructions for the pain. Follow-up with your doctor if no improvement in 1 week. Seek Emergency Medical evaluation for any worsening symptoms. [email or web address] Not available 07/25/2024 09:35:39 Apply a warm compress to the affected area for 15-20 minutes at a time up to 4 times a day. ?Keep area as clean/dry as possible. Follow up with your PCP for wound re-check in 3-5 days, follow up sooner/go directly to ER if any worsening symptoms develop in interim-fever/inc reased pain/swelling/red ness, etc. [email or web address] Not available 07/25/2024 09:28:44 Reason for Referral None Reported. Medical Equipment None Reported. Allergies Allergen ID Allergen Name Allergen Category Reaction Reaction Severity Criticality Documentation Date Start Date Code Code System Note Provider Name and Address Organization Details Recorded Time 166470 losartan medicatio n cough moderate Not available 07/25/2024 87326 RxNorm Arelis castrejon PA Gerardo Innoz [facility] 4 09:04:20 Medications Name Sig Start [...] Updated DateTime 4 177.8 cm 26.4 kg/m2 50113 g 99 % 99 % 99.4 [degF] 98 /min 189 mm[Hg] 94 mm[Hg] Arelis Carrillo [employer] [facility] 4 09:02:23 Social History Question Answer Notes LastModified by Organizat ion Details LastModified Time Tobacco Smoking Status Never Smoker [facility] Escud[facility] 07/25/2024 09:06:41 Have You Had A Flu Shot This Season? Yes Information not available 07/25/2024 If No, Would You Like A Flu Shot Today? No Information not available 07/25/2024 What Is Your Relationship Status? Single Information not available 07/25/2024 Are You Passively Exposed To Smoke? No Information no t available 07/25/2024 Have You Recently Traveled Abroad? No Information not available 07/25/2024 Sex: Unknown Functional Status Question Answer Note LastModified by Organizat ion Details LastModified Time Do you use any illicit or recreational drugs? No Information not available 07/25/2024 Do you or have you ever used any other forms of tobacco or nicotine? No Information not available 07/25/2024 What is your level of alcohol consumption? None Information not available 07/25/2024 Are you currently employed? Yes Information not available 07/25/2024 Mental Status None recorded. Family History Nothing Reported. Medical History No medical history recorded. Past Encounters Encounter ID Performer Location Encounter Start Date Encounter Closed Date Diagnosis/Indication Diagnosis SNOMED-CT Code Diagnosis ICD10 Code Diagnosis [facility] [id number] [facility] [address] [address] 12/08/2018 11:19:28 12/08/2018 14:47:34 [id number] 20[facility] _[address] [address] 04/20/2022 12:20:19 04/20/2022 13:28:21 [id number] [facility] _[address] [address] 11/10/2018 11:23:46 11/10/2018 11:57:25 [id number] [facility] [address] 04/08/2018 19:10:26 04/08/2018 20:59:09 [id number] [facility] [address] 06/21/2020 15:53:21 06/21/2020 17:40:59 [id number] [facility] [address] [place] [address] 06/22/2022 08:54:14 06/22/2022 09:56:52 [id number] [facility] [address] 04/21/2019 13:56:39 04/21/2019 14:43:07 [id number] [facility] [place] [address] 02/18/2021 09:02:31 02/18/2021 10:39:31 [id number] [address] [place] [address] 06/15/2022 13:26:13 06/15/2022 19:14:35 [id number] _[facility] [address] [address] 12/26/2017 19:04:11 12/26/2017 19:39:09 [id number] [facility] [address] [facility] [place] [address] 06/29/2020 08:05:48 06/29/2020 08:16:24 [id number] R[place]ELT LEYVA [place] [address] [address] 07/25/2024 08:31:24 07/25/2024 09:31:57 Abscess of skin and/or subcutaneous tissue 91181235 L02.91 Hypertensive disorder 38 149953 I10 Followed by his PCP and cardiologi st. Health Concerns Section Related Observation LastModified by Organization Detai ls LastModified Time None Recorded Concern Status LastModified by Organization Details LastModified Time None Recorded Advance Directives Directive None Recorded Payers Insurance Date Sequence Insurance Name Policy Number Policy Avalos Covered Member ID Avalos Member ID Guarantor Name 01/02/2025 1 [facility] (MEDICARE REPLACEMENT/ ADVANTAGE - PPO) [id number] Bear Anna [id number] Bear Bensonarlo Notes Date Note Type Note Provider Name and Address Organization Details Recorded Time 07/25/2024 text/html 79 yo M c/o pain and swelling on his right lower jaw that started yesterday. No dental pain but his gum line is sore. Afebrile. ROOSEVELT LEYVA MD [address] [place], [address], [place] - [facility] 07/25/2024 09:53:33
[2025-03-26 11:06] LABS: Glucose, Whole Blood 63 mg/dL (60-115)
[2025-03-26 11:21] LABS: Glucose, Whole Blood 61 mg/dL (60-115)
[2025-03-26 11:43] LABS: Glucose, Whole Blood 83 mg/dL (60-115)
== END 2025-03-26 11:39 | disposition home or self-care (01) ==
LOC: HO.ENCR 10:55
PROVIDERS: PCP Family Medicine; Visit Provider Physician Assistant
DX: Z13.9 Encounter for screening, unspecified (principal); E11.9 Type 2 diabetes mellitus without complications; E11.65 Type 2 diabetes mellitus with hyperglycemia; I10 Essential (primary) hypertension

== ENCOUNTER → 2025-03-26 10:54 | Outpatient (BNVA) | payer MEDICARE, SELFPAY | PROVIDERS: PCP Family Medicine; Visit Provider Physician Assistant | DX: E11.65 Type 2 diabetes mellitus with hyperglycemia (principal); I10 Essential (primary) hypertension | CPT/HCPCS: 82947; 83036; 99212 ==

== ENCOUNTER 2025-06-25 10:09 | Outpatient (AMB) | payer MEDICARE, SELFPAY ==
--- OUTSIDE RECORDS SUMMARY | 2025-06-25 10:14 | XMS_ITS | Clinical Summary ---
Author Organization [facility] Address [address] [place] [address] Care Team Providers Care Potato Chip Processing Supervisor Name Role Phone Unavailable Primary Care Provider Unavailabl e Source Comments PLEASE NOTE, if this patient is a minor, it may be UNLAWFUL to discuss sensitive information that is contained in these records (such as FAMILY PLANNING, MENTAL HEALTH or SUBSTANCE ABUSE) with the minor patient's parent or other person without the patient's specific authorization.[facility] Allergies Active Allergy Reactions Criticality Noted Date Comments Losartan-Hydrochlorothiazide Cough 025 Encounters Date Type Department Care Team Description 05/21/2025 9:40 AM EDT Office Visit [facility] [id number] [place] [phone] Kale Barnard DDS from Last 3 Months Social History Tobacco Use Types Packs/Day Years Used Date Smoking Tobacco: Never Passive Smoke Exposure: Never Smokeless Tobacco: Never Tobacco Cessation:Counseling Given: Not Answered Sex and Gender Information Value Date Recorded Sex Assigned at Not on file Legal Sex Male 1:23 PM PST Gender Identity Not on file Sexual Orientation Not on file Last Filed Vital Signs Vital Sign Reading Time Taken Comments Blood Pressure 130/78 03/02/2025 10:04 AM EDT Pulse 68 03/02/2025 10:04 AM EDT Temperature - - Respiratory Rate - - Oxygen Saturation - - Inhaled Oxygen Concentration - - Weight - - Height - - Body Mass Index - - Plan of Treatment Upcoming Encounters Date Type Department Care Team (Late st Contact Info) Description 08/03/2025 9:00 AM EDT Office Visit [facility] [address] [place] [phone] Kale Barnard DDS [address] [place] [address], [place] [address] Health Maintenance Due Date Last Done Comments Dental Prophy 1945 Imm-DTaP/Tdap/Td (1 - Tdap) 01/29/1964 Imm-Pneumococcal 50+ (1 of 1 - PCV) 1995 Imm-Zoster, Recombinant (1 of 2) 1995 Falls Prevention 2010 Imm-RSV (adult) (1 - 1-dose 75+ series) 01/29/2020 [id number] (1 - season) 2024 Alcohol and Drug Screen 11/04/2024 Depression Annual Screen 11/04/2024 Imm-Influenza (#1) 2025 Hypertension Screening (#1) 03/02/2026 Tobacco Screening 03/02/2026 03/02/2025 Dental BW 03/04/2026 03/02/2025 Dental Examination 03/04/2026 03/02/2025 Dental Perio Charting 03/04/2026 03/02/2025 Dental FMX/Pano 03/04/2030 03/02/2025 Procedures Procedure Name Priority Date/Time Associated Diagnosis Comments 14 EXTRACTION ERU TOOTH RQR REMV BONE &/SECTN TOOTH Routine 05/21/2025 9:40 AM EDT Retained tooth root 7 EXTRACTION ERUPTED TOOTH OR EXPOSED ROOT Routine 05/21/2025 9:40 AM EDT Retained tooth root 8 EXTRACTION ERUPTED TOOTH OR EXPOSED ROOT Routine 05/21/2025 9:40 AM EDT Retained tooth root 9 EXTRACTION ERUPTED TOOTH OR EXPOSED ROOT Routine 05/21/2025 9:40 AM EDT Retained tooth root 13 EXTRACTION ERUPTED TOOTH OR EXPOSED ROOT Routine 05/21/2025 9:40 AM EDT Retained tooth root 15 EXTRACTION ERUPTED TOOTH OR EXPOSED ROOT Routine 05/21/2025 9:40 AM EDT Retained tooth root 16 EXTRACTION ERUPTED TOOTH OR EXPOSED ROOT Routine 05/21/2025 9:40 AM EDT Retained tooth root CASE PRESENTATION SUBS DTL & EXTENSIVE TX PLN Routine 05/21/2025 9:40 AM EDT Retained tooth root INTRAORAL - COMP SERIES OF RADIOGRAPHIC IMAGES Routine 03/02/2025 10:00 AM EDT Retained tooth root Complete bony impaction of tooth 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
[2025-06-25 10:15] VITALS: BP 136/80; PULSE 85; O2SAT 96; BMI 25.6
--- NOTE | 2025-06-25 10:15 | A.OFFVIS_ITS ---
Vital Signs 06/25/25 10:15 Height 5 ft 10 in Weight 178 lb 9.191 oz BMI 25.6 BP 136/80 Blood Pressure Location Rt brachial Position Sitting Pulse 85 Pulse Source Pulse Oximeter Pulse Oximetry (%) 96 Oxygen Delivery Method Room Air Intake Visit Reasons: DM Intake Note: Patient presents today for a follow-up on Type 2 Diabetes Mellitus: Last Diabetic eye exam was on: 01/2025, [facility] Last Podiatry exam was on: Patient does not see a Yardage Control Operator Forming Most recent HbA1c: 8.8%, 06/25/2025 Random Glucose- 194 mg/dL, Today Hr Generalist Required: No Accompanied by: Self / Same As Patient Allergies lisinopril Allergy (Mild, Verified 06/25/25 10:20) Cough dulaglutide (From [facility]) Adverse Reaction (Mild, Verified 06/25/25 10:20) Vomiting Medication List - Last Reconciled 06/25/25 by Evy Junior PA-C amlodipine 10 mg PO DAILY blood pressure monitor Monitor blood pressure as directed blood sugar diagnostic ([employer] Verio test strips) Use TID As directed blood-glucose meter (eBioscienceTouch Verio Meter) As directed to test blood sugar, 999 days cholecalciferol (vitamin D3) 25 mcg PO DAILY coenzyme Q10 100 mg PO DAILY ginseng 100 mg PO DAILY lancets ([employer] UltraSoft Lancets) DX: E11.9, test blood sugar once a day, 90 days losartan 100 mg PO DAILY 90 days mecobalamin (vitamin B12) 500 mcg PO DAILY metformin 1,000 mg PO BID simvastatin 40 mg PO DAILY HPI HPI DM: Details: Patient is a 79-year-old male with a significant past medical history of uncontrolled type 2 diabetes, chronic kidney disease, hyperlipidemia and hypertension presenting today for dm review. CV: Blood pressure today in the office is 136/80. He is currently on losartan 100 mg daily and norvasc 10 mg. Cholesterol is managed with simvastatin 40 mg. No myalgias. Last LFTs and lipids WNL. Endo: His last A1c is 8.8. It previously was 7.1. He is on metformin 2000 mg day, and Ozempic 0.25 mg weekly. He was supposed to be on higher dose of ozempic. -He denies anymore low blood sugars since stopping glipizide. Rarely checking blood sugars at home. -trulicity caused vomiting -Januvia is too expensive. -Jardiance is too expensive -he was diagnosed 4 years ago. No fam hx of dm Up to date eye exam had diabetic Education and found this helpful. Nephro: He just followed with nephrology. Avoid NSAIDs. [facility] Medical History (Updated 06/25/25 @ 10:47 by Evy Junior PA-C) Type 2 diabetes mellitus without complications Surgical History (Updated 06/25/25 @ 10:21 by BAILEY Thao) Hx of tooth extraction Family History Mother Hyperlipidemia Father Brain cancer Social History Household Members: Spouse and Significant Other Housing: House Alcohol intake: current Alcohol intake frequency: a few times a month Alcohol type: wine Patient Tobacco Use Status: Never used Tobacco e-Cigarette/Vaping Use: Never Used Second Hand Smoke Exposure: No service: No Current occupational status: retired Current occupational exposures/hazards: No Sexual orientation: Unable to collect Gender identity: Unable to collect Cognitive needs: No Hearing needs: No Vision needs: No Physical Exam Vital Signs: Last Vital Signs Pulse 85 06/25/25 10:15 BP 136/80 06/25/25 10:15 Pulse Ox 96 06/25/25 10:15 Oxygen Delivery Method Room Air 06/25/25 10:15 BMI result Body Mass Index 25.6 Const Orientation/consciousness: patient oriented x3 HEENT Ears: hearing grossly normal bilaterally Neck Thyroid: Thyroid normal Lymphatic: no lymphadenopathy noted Resp Auscultation: clear to auscultation bilaterally Cardio Rate: regular rate Rhythm: regular rhythm Heart sounds: S1 normal heart sound present and S2 normal heart sound present Skin General skin exam: no rashes or lesions noted Neuro General: patient oriented x3, gait normal and no focal motor deficits Results AMB Hemoglobin A1c AMB Hemoglobin A1c 8.8 % Last Edit by BAILEY Thao on 06/25/25 10:33 Assessment & Plan Assessment & Plan (1) Diabetes type 2, uncontrolled: Code(s): E11.65 - Type 2 diabetes mellitus with hyperglycemia Category: Medical Qualifiers: Glycemic state: with hyperglycemia Qualified Code(s): E11.65 - Type 2 diabetes mellitus with hyperglycemia Plan: Increase Ozempic to 0.5 mg weekly Start glipizide 5 mg daily Continue metformin recheck labs 3 months (2) HTN (hypertension): Code(s): I10 - Essential (primary) hypertension Category: Medical Qualifiers: Hypertension type: primary hypertension Qualified Code(s): I10 - Essential (primary) hypertension Plan: wnl Orders: Orders AMB Hemoglobin A1c Today E11.65 - Type 2 diabetes mellitus with hyperglycemia Medications: New glipizide ER 5 mg PO DAILY 90 tabs 1RF semaglutide (Ozempic) 0.5 mg (0.736 mL) subcut QWEEK 3 mL 3RF Patient Instructions: increase ozempic to 0.5 mg weekly continue metformin start glipizide 5 mg in the morning - 1x a day Coding Level of Care Code Est Pt Level 4 (26592) Complex EM visit Add On G2211 Diagnoses Uncontrolled type 2 diabetes mellitus with hyperglycemia E11.65 Glycemic state: with hyperglycemia Primary hypertension I10 Hypertension type: primary hypertension
[2025-06-25 10:28] LABS: Glucose, Whole Blood 194 mg/dL (60-115)
== END 2025-06-25 10:40 | disposition home or self-care (01) ==
LOC: HO.ENCR 10:10
PROVIDERS: PCP Family Medicine; Visit Provider Physician Assistant
DX: E11.65 Type 2 diabetes mellitus with hyperglycemia (principal); I10 Essential (primary) hypertension

== ENCOUNTER → 2025-06-25 10:09 | Outpatient (BNVA) | payer MEDICARE, SELFPAY | PROVIDERS: PCP Family Medicine; Visit Provider Physician Assistant | DX: E11.65 Type 2 diabetes mellitus with hyperglycemia (principal); I10 Essential (primary) hypertension | CPT/HCPCS: 82947; 83036; 99212 ==

== ENCOUNTER 2025-07-15 10:36 | Outpatient (AMB) | payer MEDICARE, SELFPAY ==
[2025-07-15 10:42] VITALS: BP 120/62; PULSE 78; O2SAT 98; BMI 25.7
--- NOTE | 2025-07-15 10:42 | HO.NEPHOV_ITS ---
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 Accompanied by: Self / Same As Patient Allergies lisinopril Allergy (Mild, Verified 07/15/25 10:44) [facility] Adverse Reaction (Mild, Verified 07/15/25 10:44) Vomiting Medication List - Last Reconciled 07/15/25 by Ovidio Wilson MD amlodipine 10 mg PO DAILY blood pressure monitor Monitor blood pressure as directed blood sugar diagnostic (American Kidney Stone ManagementTouch Verio test strips) Use TID As directed blood-glucose meter (Frogmetricsuch Verio Meter) As directed to test blood sugar, 999 days cholecalciferol (vitamin D3) 25 mcg PO DAILY coenzyme Q10 100 mg PO DAILY ginseng 100 mg PO DAILY glipizide ER 5 mg PO DAILY lancets (American Kidney Stone ManagementTouch UltraSoft Lancets) DX: E11.9, test blood sugar once a day, 90 days losartan 100 mg PO DAILY 90 days mecobalamin (vitamin B12) 500 mcg PO DAILY metformin 1,000 mg PO BID semaglutide (Ozempic) 0.5 mg (0.736 mL) subcut QWEEK simvastatin 40 mg PO DAILY HPI Comments Details: Bear is a pleasant 79-year-old man with a history of hypertension diabetes mellitus. He has been referred for evaluation of CKD. Baseline creatinine is around 1.5 mg/dL until recently. Most recent creatinine was 1.5 which was bumped from the baseline. He is on losartan 100 mg for the past 1 year. Amlodipine 5 mg was added recently He has been having increased frequency of micturition. No urgency No hematuria. 12/31/24 Tried Trulicity and did not tolerate Ozempic has been prescribed Overall, he is felling well. No new complaints today 07/15/25 Overall doing well. Glipizide has been added Lost some weight with Ozempic [facility] Medical History (Updated 06/25/25 @ 10:47 by Evy Junior PA-C) Type 2 diabetes mellitus without complications Surgical History Hx of tooth extraction Family History Mother Hyperlipidemia Father Brain cancer Social History Household Members: Spouse and Significant Other Housing: House Alcohol intake: current Alcohol intake frequency: a few times a month Alcohol type: wine Patient Tobacco Use Status: Never used Tobacco e-Cigarette/Vaping Use: Never Used Second Hand Smoke Exposure: No service: No Current occupational status: retired Current occupational exposures/hazards: No Sexual orientation: Unable to collect Gender identity: Unable to collect Cognitive needs: No Hearing needs: No Vision needs: No Physical Exam Vital Signs: Last Vital Signs Pulse 78 07/15/25 10:42 BP 120/62 07/15/25 10:42 Pulse Ox 98 07/15/25 10:42 Oxygen Delivery Method Room Air 07/15/25 10:42 BMI result Body Mass Index 25.7 Comfortable Neck supple no JVD. Lungs entry equal no rales. Heart S1-S2 heard no gallop or rub. Abdomen soft nontender. Neuro alert awake oriented. No asterixis. Extremities no edema. Results Reviewed Nephrology Results: Hgb, (14.0-18.0) 12.3 g/dl L 01/27/25 WBC, (4.8-10.8) 8.1 X10*3/uL 01/27/25 Plt Count, (160-400) 289 X10*3/uL 01/27/25 Sodium, (135-145) 139 mmol/L 12/26/24 Potassium, (3.3-5.1) 4.4 mmol/L 12/26/24 Chloride, (96-108) 107 mmol/L 12/26/24 Carbon Dioxide, (22-29) 24 mmol/L 12/26/24 BUN, (9-16) 25 mg/dL H 12/26/24 Creatinine, (0.5-1.4) 1.26 mg/dL 12/26/24 Calcium, (8.4-10.2) 9.7 mg/dL 12/26/24 Renal US 08/06/24 Assessment & Plan Assessment & Plan (1) Chronic kidney disease, stage 3 unspecified: Code(s): N18.30 - Chronic kidney disease, stage 3 unspecified Category: Medical Qualifiers: Chronic kidney disease stage 3 subtype: stage 3b (GFR 30-44) Qualified Code(s): N18.32 - Chronic kidney disease, stage 3b Plan . 80-year-old man with a history of hypertension with diabetes mellitus with CKD. He has no significant proteinuria. Underlying glomerular nephritis or interstitial disease seem unlikely. Creatinine is down to 1.2 Probably his baseline No significant proteinuria renal ultrasonogram to assess echogenicity and to rule out hydronephrosis. Images reviewed- appears normal. Continue with ARB SGLT-2 inhibitor has been prescribed, but has not taken it yet due to cost factor At this point the goal is to slow the progression of the kidney disease Maintain blood pressure 130/80 Continue to avoid nephrotoxic agents including NSAIDs. Keep intake more than output. Repeat lab work ordered today No changes made to medication regimen Orders: Orders Creatinine Today N18.32 - Chronic kidney disease, stage 3b UA and rflx microscopic 6 Months N18.32 - Chronic kidney disease, stage 3b Creatinine Urine 6 Months N18.32 - Chronic kidney disease, stage 3b Blood Urea Nitrogen Today N18.32 - Chronic kidney disease, stage 3b, N18.4 - Chronic kidney disease, stage 4 (severe) Basic Metabolic Panel 6 Months N18.32 - Chronic kidney disease, stage 3b Total Protein Urine Random 6 Months N18.32 - Chronic kidney disease, stage 3b Coding Level of Care Code Est Pt Level 4 (97432) Diagnoses Stage 3b chronic kidney disease N18.32 Chronic kidney disease stage 3 subtype: stage 3b (GFR 30-44)
== END 2025-07-15 10:54 | disposition home or self-care (01) ==
LOC: HO.HKA 10:37
PROVIDERS: PCP Family Medicine; Visit Provider Internal Medicine Hypertension Specialist
DX: N18.32 Chronic kidney disease, stage 3b (principal)
CPT/HCPCS: 99214

== ENCOUNTER → 2025-07-15 10:36 | Outpatient (BNVA) | payer MEDICARE, SELFPAY | PROVIDERS: PCP Family Medicine; Visit Provider Internal Medicine Hypertension Specialist | DX: E11.22 Type 2 diabetes mellitus with diabetic chronic kidney disease (principal); N18.32 Chronic kidney disease, stage 3b; I10 Essential (primary) hypertension | CPT/HCPCS: 99212 ==

== ENCOUNTER 2025-07-15 11:00 | Outpatient (REF) | payer MEDICARE, SELFPAY ==
[2025-07-15 13:46] LABS: Blood Urea Nitrogen 22 mg/dL (9-16); Estimated Glomerular Filt Rate 57
--- OUTSIDE RECORDS SUMMARY | 2025-07-15 15:09 | XMS_ITS | Clinical Summary ---
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 Role Phone Unavailable Primary Care Provider [...] Description 05/21/2025 9:40 AM EDT Office Visit [facility] [address] [place] [phone] Kale Barnard DDS from Last 3 Months [...] Description 08/03/2025 9:00 AM EDT Office Visit [facility] [address] [place] [phone] Kale Barnard DDS [address] [place] [address], [place] [address] Health Maintenance Due Date Last Done Comments Dental Prophy 1945 Imm-DTaP/Tdap/Td (1 - Tdap) 01/29/1964 Imm-Pneumococcal 50+ (1 of 1 - PCV) 1995 Imm-Zoster, Recombinant (1 of 2) 1995 Falls Prevention 2010 Imm-RSV (adult) (1 - 1-dose 75+ series) 01/29/2020 Alcohol and Drug Screen 11/04/2024 Depression Annual Screen 11/04/2024 [id number] (1 - season) 2025 Imm-Influenza (#1) 2025 Hypertension Screening (#1) 03/02/2026 [...] Most Recently Relevant to Health Maintenance Insurance [facility]
== END 2025-07-15 11:01 | disposition home or self-care (01) ==
LOC: HO.10HDL 11:00
PROVIDERS: Visit Provider Internal Medicine Hypertension Specialist
DX: N18.4 Chronic kidney disease, stage 4 (severe) (principal)
CPT/HCPCS: 36415; 82565; 84520

== ENCOUNTER 2025-09-02 10:54 | Outpatient (AMB) | payer MEDICARE, SELFPAY ==
--- NOTE | 2025-09-02 11:02 | A.OFFPC_ITS ---
Vital Signs 09/02/25 11:06 Height 5 ft 10 in Weight 180 lb 2 oz BMI 25.8 BP 136/78 Blood Pressure Location Rt brachial Position Sitting Pulse 80 Pulse Source Pulse Oximeter Temp 97.5 F Temp Source Temporal Artery Scan Pulse Oximetry (%) 98 Oxygen Delivery Method Room Air Intake Visit Reasons: [facility] from [facility] / Requesting PE Intake Note: Bear presents in the office today to transfer care. Allergies lisinopril Allergy (Mild, Verified 09/02/25 11:04) [facility] Adverse Reaction (Mild, Verified 09/02/25 11:04) Vomiting Tobacco use date assessed: 09/02/25 Fall risk assessment: No Falls in past year Last assessed Fall Risk: 09/02/25 Dental Screening Dental Screen Date: 09/02/25 Did you have a dental visit in the last 12 months?: Yes Did you have a dental problem in the last 6 months where you did not have access to dental care?: No Was dental information given to patient?: Patient has dentist HPI HPI Comments History of Present Illness Details This is an 80-year-old male with a past medical history of CKD stage 3a, anemia, hyperlipidemia, type 2 diabetes and hypertension presenting to transfer care. Hypertension is treated with amlodipine 10 mg, losartan 100 mg. His blood pressure is 136/78 today. Creatinine 1.36 and GFR 50. No microalbuminuria. Followed by Dr. Wilson. Hyperlipidemia is treated with simvastatin 40 mg. Type 2 diabetes is managed by endocrinology. His current regimen is Ozempic 0.5 mg weekly, metformin 1000 mg twice daily, glipizide ER 5 mg daily. His hemoglobin A1c was 8.8% 06/25/2025. He is not checking blood sugars. Eye exam up to date and no diabetes complications. No neuropathy. Nonsmoker. Drinks 1 glass of wine once per week. History of Shingle sx 2. Recommended Shingrix. We also discussed flu, pneumonia and RSV vaccine. Patient had several colonoscopies, and he discontinued screening for colon cancer in his mid 70s. PSA ordered. Dental exam up to date. In the process of getting false teeth. There is impacted cerumen on exam. Patient has felt like his ears or block. He has had this problem in the past. Patient endorses changing mole on the right side of the neck for the past 6 months. It looks larger, and the color has changed. He also developed a skin growth on his right arm 4 months ago. It is a little painful. He denies history of skin cancer. He is also followed by hematology for mild anemia which he says has persisted since his 30s. It is being monitored. ROS: Constitutional: No unexplained weight loss, fever, chills, fatigue or night sweats. Eyes: No vision changes, blurry vision, double vision, eye pain, eye redness, eye discharge. Respiratory: No shortness of breath, cough or sputum production. Cardiovascular: No chest pain, chest pressure or chest discomfort. No palpitations or pedal edema. Gastrointestinal: No anorexia, nausea, vomiting or diarrhea. No abdominal pain or blood in stool. Neurologic: No headache, dizziness, syncope Endocrine: No cold or heat intolerance. No polyuria or polydipsia. Psychiatric: No depression or anxiety. No SI/HI. Physical exam: Constitutional: Alert, in no distress. Eyes: Pupils are equal, round and reactive to light. Extraocular muscles intact. Ear, Nose and Throat: Canals occluded by brown cerumen. Normal nasal mucosa. No nasal discharge. No oral lesions. Neck: Supple, Full range of motion. No lymphadenopathy. No palpable thyroid masses. Respiratory: Clear to auscultation. Cardiovascular: S1 S2 regular. No murmurs. Gastrointestinal: Abdomen soft, non-tender, non-distended. Normal bowel sounds. No palpable masses. Skin: 11 mm irregular, dark and light brooks lesion that is raised on the base of the right side of the neck. 12 mm raised light pink/flesh toned irregular lesion on the back of the right arm. Musculoskeletal: No gross deformities. Normal range of motion. Extremities: Warm and well perfused. No clubbing, cyanosis or edema. Intact peripheral pulses bilaterally [facility] Medical History (Updated 09/02/25 @ 13:39 by OTTO Hylton) Impacted cerumen Change in mole Neoplasm of skin Type 2 diabetes mellitus without complications Surgical History (Updated 07/30/25 @ 10:46 by Gill Ren MD) Hx of tooth extraction Family History Mother Hyperlipidemia Father Brain cancer Social History (Updated 09/02/25 @ 11:05 by Maria D Lake CMA) Household Members: Spouse and Significant Other Housing: House Alcohol intake: current Alcohol intake frequency: a few times a month Alcohol type: wine Patient Tobacco Use Status: Never used Tobacco e-Cigarette/Vaping Use: Never Used Second Hand Smoke Exposure: No service: No Current occupational status: retired Current occupational exposures/hazards: No Sexual orientation: Unable to collect Gender identity: Unable to collect Cognitive needs: No Hearing needs: No Vision needs: No Questionnaire PHQ-9 Over the last 2 weeks, how often have you been bothered by any of the following problems? 1. Little interest or pleasure in doing things: not at all 2. Feeling down, depressed, or hopeless: not at all 3. Trouble falling or staying asleep, or sleeping too much: not at all 4. Feeling tired or having little energy: not at all 5. Poor appetite or overeating: not at all 6. Feeling bad about yourself - or that you are a failure or have let yourself or your family down: not at all 7. Trouble concentrating on things, such as reading the newspaper or watching television: not at all 8. Moving or speaking so slowly that other people could have noticed. Or the opposite - being so fidgety or restless that you have been moving around a lot more than usual: not at all 9. Thoughts that you would be better off or of hurting yourself in some way: not at all Total score: 0 Depression Screening Interpretation: Negative Depression Screening Done: Yes 70853 - PHQ-9 Billing: Yes Source: Developed by Drs. Christo Woodard, Mesha Fong, Brando Winn and colleagues, with an educational josee from [employer]. Thrive Questionnaire Date Thrive assessed: 09/02/25 I am a: Patient What is your living situation today?: I have a steady place to live Within the past 12 months, did the food you bought not last and you didn't have the money to get more?: Never true Within the past 12 months, did you worry whether your food would run out before you got money to buy more?: Never true Do you have trouble paying for medicines?: No Do you have trouble getting transportation to medical appointments?: No Do you have trouble paying your heating and electricity bill?: I choose not to answer this question Do you have trouble taking care of your child, family member or friend?: No Do you have trouble with day-to-day activities such as bathing, preparing meals, shopping, managing finances, etc.?: No Are you currently unemployed and looking for a job?: No Are you interested in more education?: No Please select the resources that you would like help with: None THRIVE Score: 0 AUDIT C Alcohol Use Questionnaire (AUDIT-C) 1. How often do you have a drink containing alcohol?: 2-4 times a month 2. How many drinks containing alcohol do you have on a typical day when you are drinking?: 1 or 2 3. How often do you have six or more drinks on one occasion?: Never Total Score: 2 STEPHEN-7 AMB Questionnaire STEPHEN-7 Date STEPHEN - 7 assessed: 09/02/25 Feeling nervous, anxious, or on edge: 0 = Not at all Not being able to stop or control worryin = Not at all Worrying too much about different things: 0 = Not at all Trouble relaxin = Not at all Being so restless that it is hard to sit still: 0 = Not at all Becoming easily annoyed or irritable: 0 = Not at all Feeling afraid as if something awful might happen: 0 = Not at all Total STEPHEN-7 score (0-4 normal; 5-9 mild; 10-14 moderate; 15-21 severe): 0 Source: Developed by Drs. Christo Woodard, Mesha Fong, Brando Winn and colleagues, with an educational josee from [employer]. STEPHEN-7 Assessment Billing STEPHEN-7 Assessment Tool: STEPHEN-7 Assessment 90335 Physical exam (Primary Care) Vital Signs: Last Vital Signs Temp 97.5 F 09/02/25 11:06 Pulse 80 09/02/25 11:06 BP 136/78 09/02/25 11:06 Pulse Ox 98 09/02/25 11:06 Oxygen Delivery Method Room Air 09/02/25 11:06 BMI result Body Mass Index 25.8 Tobacco/Smoking Status: Tobacco use Status Tobacco use date assessed 09/02/25 09/02/25 11:08 Patient Tobacco Use Status Never used Tobacco 09/02/25 11:05 e-Cigarette/Vaping Use Never Used 09/02/25 11:05 PHQ-9: PHQ-9 Score PHQ-9: Total score 0 09/02/25 11:20 Depression Screening Interpretation: Negative Thrive Assessment: Date of Thrive Assessment Date Thrive assessed 09/02/25 09/02/25 11:03 Coding Level of Care Code [place] Pt Level 5 (65268) Complex EM visit Add On G2211 Diagnoses Primary hypertension I10 Hypertension type: primary hypertension Hyperlipidemia E78.5 Uncontrolled type 2 diabetes mellitus with hyperglycemia E11.65 Glycemic state: with hyperglycemia Stage 3b chronic kidney disease N18.32 Chronic kidney disease stage 3 subtype: stage 3b (GFR 30-44) Screening for prostate cancer Z12.5 Mild anemia D64.9 Neoplasm of uncertain behavior of skin D48.5 Change in mole D22.9 Bilateral impacted cerumen H61.23 Laterality: bilateral Additional Codes STEPHEN-7 Assessment Billing - STEPHEN-7 Assessment Tool: STEPHEN-7 Assessment 34383 ([id number]) PHQ-9 - 45506 - PHQ-9 Billing: Yes ([id number]) Time Spent (min) 52 Comment Chart review, direct patient care, completing documentation Assessment & Plan Assessment & Plan (1) HTN (hypertension): Code(s): I10 - Essential (primary) hypertension Category: Medical Qualifiers: Hypertension type: primary hypertension Qualified Code(s): I10 - Essential (primary) hypertension Plan: Systolic blood pressure is mildly elevated today. Recommended avoidance of caffeine and following a low-sodium diet. Patient says his blood pressure tends to fluctuate. Deferred medication changes at this time. (2) Hyperlipidemia: Code(s): E78.5 - Hyperlipidemia, unspecified Category: Medical Plan: LDL goal less than 100. Continue simvastatin. He has orders in to check labs prior to seeing endocrinology. Recommended Mediterranean diet. (3) Diabetes type 2, uncontrolled: Code(s): E11.65 - Type 2 diabetes mellitus with hyperglycemia Category: Medical Qualifiers: Glycemic state: with hyperglycemia Qualified Code(s): E11.65 - Type 2 diabetes mellitus with hyperglycemia Plan: Continue current medications. Followed by endocrinology. Limit portion sizes. Follow a low carbohydrate, low sugar diet. I strongly encouraged him to start checking his blood sugars twice daily. (4) Chronic kidney disease, stage 3 unspecified: Code(s): N18.30 - Chronic kidney disease, stage 3 unspecified Category: Medical Qualifiers: Chronic kidney disease stage 3 subtype: stage 3b (GFR 30-44) Qualified Code(s): N18.32 - Chronic kidney disease, stage 3b Plan: Avoid NSAIDs. Continue medications. Followed by Nephrology. (5) Screening for prostate cancer: Code(s): Z12.5 - Encounter for screening for malignant neoplasm of prostate Category: Medical (6) Mild anemia: Code(s): D64.9 - Anemia, unspecified Category: Medical Plan: Stable. This is being monitored. Followed by Hematology. (7) Neoplasm of uncertain behavior of skin: Code(s): D48.5 - Neoplasm of uncertain behavior of skin Category: Medical Plan: Refer urgently to Dermatology for evaluation. (8) Change in mole: Code(s): D22.9 - Melanocytic nevi, unspecified Category: Medical Plan: Referred urgently to Dermatology for evaluation. (9) Impacted cerumen: Code(s): H61.20 - Impacted cerumen, unspecified ear Category: Medical Qualifiers: Laterality: bilateral Qualified Code(s): H61.23 - Impacted cerumen, bilateral Plan: Schedule nurse visit and used Debrox for 4 days prior to procedure to flush years. Plan Follow up in 4 months. Orders: Orders Prostate Specific Antigen Today Z12.5 - Encounter for screening for malignant neoplasm of prostate Referrals Dermatology Referral D22.9 - Melanocytic nevi, unspecified, D49.2 - Neoplasm of unspecified behavior of bone, soft tissue, and skin Medications: New carbamide peroxide 6.5% (Debrox) 5 drps otic (ears) Q12H 15 mL 0RF 4 days
[2025-09-02 11:06] VITALS: BP 136/78; PULSE 80; TEMP 36.4; O2SAT 98; BMI 25.8
--- OUTSIDE RECORDS SUMMARY | 2025-09-02 13:37 | XMS_ITS | Data Portability ---
Author Organization [facility] [address] Address [address] [facility] [place] [address] Assessment No assessment recorded. Plan of Treatment Reminders Order Date Submit Date Provider Last Modified By Organization Details Last Modified Time Details Appointments None recorded. Lab None recorded. Referral None recorded. Procedures None recorded. Surgeries None recorded. Imaging None recorded. Medication Orders cephalexin 500 mg capsule [address] [place] [address] Pharmacy 2174, [address] [place] [address], [id number], 09:28:52 Patient TargetsNo targets recorded. Patient Instructions Encounter Date Encounter Id Patient Instructions Last Modified By Organization Details Last Modified Time 07/25/2024 [id number] You can take ove r the counter tylenol or ibuprofen per package instructions for the pain. Follow-up with your doctor if no improvement in 1 week. Seek Emergency Medical evaluation for any worsening symptoms. [email or web address] Not available 07/25/2024 09:35:39 Apply a warm compress to the affected area for 15-20 minutes at a time up to 4 times a day. K eep area as clean/dry as possible. Follow up with your PCP for wound re-check in 3-5 days, follow up sooner/go directly to ER if any worsening symptoms develop in interim-fever/inc reased pain/swelling/red ness, etc. [email or web address] Not available 07/25/2024 09:28:44 Reason for Referral None Reported. Medical Equipment None Reported. Allergies Allergen ID Allergen Name Allergen Category Reaction Reaction Severity Criticality Documentation Date Start Date Code Code System Note Provider Name and Address Organization Details Recorded Time 481011 losartan medicatio n cough moderate Not available 07/25/2024 67351 RxNorm [facility] Esc[facility] 4 09:04:20 Medications Name Sig Start [...] Pulse oximetry Body temperature Heart rate Systolic And Diastolic Provider Name and Address Organization Details Last Updated DateTime 4 177.8 cm 26.4 kg/m2 97150 g 99 % 99 % 99.4 [degF] 98 /min 189/94 mm[Hg] Arelis Carrillo [facility] 4 09:02:23 Social History Question Answer [...] Diagnosis SNOMED-CT Code Diagnosis ICD10 Code Diagnosis IMO Codes Diagnosis Note [id number] 20994_[facility] _Wes [address] [address] 12/08/2018 11:19:28 12/08/2018 14:47:34 [id number] 20994_[facility] _[address] [address] 04/20/2022 12:20:19 04/20/2022 13:28:21 [id number] 20994_[facility] _[address]es [address] [address] 11/10/2018 11:23:46 11/10/2018 11:57:25 [id number] [facility] [address] [address] 04/08/2018 19:10:26 04/08/2018 20:59:09 [id number] [facility] [address] [address] 06/21/2020 15:53:21 06/21/2020 17:40:59 [id number] [facility] [address] [place] [address] 06/22/2022 08:54:14 06/22/2022 09:56:52 [id number] [facility] [address] 04/21/2019 13:56:39 04/21/2019 14:43:07 [id number] [facility] [place] [address] 02/18/2021 09:02:31 02/18/2021 10:39:31 [id number] [address] [place] [address] 06/15/2022 13:26:13 06/15/2022 19:14:35 [id number] _[facility] _[address] [address] 12/26/2017 19:04:11 12/26/2017 19:39:09 [id number] 19993[facility] [address] [facility] [place] [address] 06/29/2020 08:05:48 06/29/2020 08:16:24 [id number] [place] LEYVA [place] [address] [address] 07/25/2024 08:31:24 07/25/2024 09:31:57 Abscess of skin and/or subcutaneous tissue [id number] L02.91 Hypertensive disorder 38 [id number] I10 Followed by his PCP and cardiologi st. Health Concerns Section Related Observation LastModified by Organization Detai ls LastModified Time None Recorded Concern Status LastModified by Organization Details LastModified Time None Recorded Advance Directives Directive None Recorded Payers Insurance Date Sequence Insurance Name Policy Number Policy Avalos Covered Member ID Avalos Member ID Guarantor Name 01/02/2025 1 [employer] (MEDICARE REPLACEMENT/ ADVANTAGE - PPO) [id number] Bear Anna [id number] Bear Bensonarlo Notes Date Note Type Note Provider Name and Address Organization Details Recorded Time 07/25/2024 text/html 79 yo M c/o pain and swelling on his right lower jaw that started yesterday. No dental pain but his gum line is sore. Afebrile. ROOSEVELT LEYVA MD [address] [place], [address], [place] - [facility] 07/25/2024 09:53:33
== END 2025-09-02 11:38 | disposition home or self-care (01) ==
LOC: HO.HMCFM 10:55
PROVIDERS: PCP Physician Assistant Medical; Visit Provider Physician Assistant Medical
DX: I10 Essential (primary) hypertension (principal); E78.5 Hyperlipidemia, unspecified; E11.65 Type 2 diabetes mellitus with hyperglycemia; N18.32 Chronic kidney disease, stage 3b; Z12.5 Encounter for screening for malignant neoplasm of prostate; D64.9 Anemia, unspecified; D48.5 Neoplasm of uncertain behavior of skin; D22.9 Melanocytic nevi, unspecified; H61.23 Impacted cerumen, bilateral

== ENCOUNTER → 2025-09-02 10:54 | Outpatient (BNVA) | payer MEDICARE, SELFPAY | PROVIDERS: PCP Physician Assistant Medical; Visit Provider Physician Assistant Medical | DX: E11.65 Type 2 diabetes mellitus with hyperglycemia (principal); I12.9 Hypertensive chronic kidney disease with stage 1 through stage 4 chronic kidney disease, or unspecified chronic kidney disease; E11.22 Type 2 diabetes mellitus with diabetic chronic kidney disease; N18.32 Chronic kidney disease, stage 3b; E78.5 Hyperlipidemia, unspecified; D64.9 Anemia, unspecified; D48.5 Neoplasm of uncertain behavior of skin; D22.4 Melanocytic nevi of scalp and neck; H61.23 Impacted cerumen, bilateral; Z79.899 Other long term (current) drug therapy; Z13.31 Encounter for screening for depression; Z13.39 Encounter for screening examination for other mental health and behavioral disorders | CPT/HCPCS: 96127; 99212 ==

== ENCOUNTER → 2025-09-10 11:44 | Outpatient (BNVA) | payer MEDICARE, SELFPAY | PROVIDERS: PCP Physician Assistant Medical; Visit Provider Physician Assistant Medical | DX: H61.23 Impacted cerumen, bilateral (principal) | CPT/HCPCS: 69209 ==

== ENCOUNTER 2025-09-16 10:08 | Outpatient (REF) | payer MEDICARE, SELFPAY ==
--- OUTSIDE RECORDS SUMMARY | 2025-09-16 12:10 | XMS_ITS | Clinical Summary ---
Author Organization [facility] Address [address] [place] [address] Care Team Providers Care Kitchen Aide Name Role Phone Unavailable Primary Care Provider [...] Encounters Date Type Department Care Team Description 08/03/2025 9:00 AM EDT Office Visit [facility] [address] [place] [phone] Kale Barnard DDS from Last 3 Months [...] Mass Index - - Plan of Treatment Health Maintenance Due Date Last Done Comments Dental Prophy 1945 Imm-DTaP/Tdap/Td (1 - Tdap) 01/29/1964 Imm-Pneumococcal 50+ (1 of 1 - PCV) 1995 Imm-Zoster, Recombinant (1 of 2) 1995 Falls Prevention 2010 Imm-RSV (adult) (1 - 1-dose 75+ series) 01/29/2020 Alcohol and Drug Screen 11/04/2024 Depression Annual Screen 11/04/2024 [id number] (1 - 2024- season) 2025 Imm-Influenza (#1) 2025 Hypertension Screening (#1) 03/02/2026 Tobacco Screening 03/02/2026 03/02/2025 Dental BW 03/04/2026 03/02/2025 Dental Examination 03/04/2026 03/02/2025 Dental Perio Charting 03/04/2026 03/02/2025 Dental FMX/Pano 03/04/2030 03/02/2025 Procedures Procedure Name Priority Date/Time Associated Diagnosis Comments 26 EXTRACTION ERUPTED TOOTH OR EXPOSED ROOT Routine 08/03/2025 9:00 AM EDT Chronic apical periodontitis 18 EXTRACTION ERU TOOTH RQR REMV BONE &/SECTN TOOTH Routine 08/03/2025 9:00 AM EDT Chronic apical periodontitis 24 EXTRACTION ERUPTED TOOTH OR EXPOSED ROOT Routine 08/03/2025 9:00 AM EDT Chronic apical periodontitis 23 EXTRACTION ERUPTED TOOTH OR EXPOSED ROOT Routine 08/03/2025 9:00 AM EDT Chronic apical periodontitis CASE PRESENTATION SUBS DTL & EXTENSIVE TX PLN Routine 08/03/2025 9:00 AM EDT Chronic apical periodontitis INTRAORAL - COMP SERIES OF RADIOGRAPHIC IMAGES [...] Most Recently Relevant to Health Maintenance Insurance [facility]
[2025-09-16 15:16] LABS: Alanine Aminotransferase 17 U/L (0-40); Albumin Level 4.8 g/dL (3.5-5.0); Alkaline Phosphatase 59 U/L (39-117); Anion Gap 13 (12-20); Aspartate Amino Transferase 28 U/L (5-37); Blood Urea Nitrogen 24 mg/dL (9-16); Calcium 9.9 mg/dL (8.4-10.2); Carbon Dioxide 26 mmol/L (22-29); Chloride 107 mmol/L (96-108); Cholesterol 137 mg/dL (<200); Estimated Glomerular Filt Rate 57; HDL Cholesterol 48 mg/dL (>40); Potassium 4.5 mmol/L (3.3-5.1); Sodium 141 mmol/L (135-145); Total Protein 7.8 g/dL (6.5-8.0); Triglycerides 94 mg/dL (<150)
[2025-09-16 15:27] LABS: Microalbum/Creatinine Ratio Ur 17.0 ug/mg cr (<30)
[2025-09-16 15:58] LABS: Prostate Specific Antigen 1.23 ng/mL (<0.05-4.0)
== END 2025-09-16 10:09 | disposition home or self-care (01) ==
LOC: HO.WFDLDS 10:08
PROVIDERS: Physician Assistant Medical; Visit Provider Physician Assistant
DX: Z12.5 Encounter for screening for malignant neoplasm of prostate (principal); E11.65 Type 2 diabetes mellitus with hyperglycemia; I10 Essential (primary) hypertension
CPT/HCPCS: 36415; 80053; 80061; 82043; 82570; 83036; 84153

== ENCOUNTER 2025-10-08 11:37 | Outpatient (AMB) | payer MEDICARE, SELFPAY ==
[2025-10-08 11:39] VITALS: BP 142/74; PULSE 86; O2SAT 99; BMI 26.2
--- NOTE | 2025-10-08 11:39 | MHC.OFFVIS ---
Vital Signs 10/08/25 11:39 Height 5 ft 10 in Weight 182 lb 5.156 oz BMI 26.2 BP 142/74 H Blood Pressure Location Lt brachial Position Sitting Pulse 86 Pulse Source Pulse Oximeter Pulse Oximetry (%) 99 Oxygen Delivery Method Room Air Intake Visit Reasons: T2DM Intake Note: Patient present today for Type 2 Diabetes Mellitus Last Diabetic eye exam: Last exam was on 02/05/25 at [facility]. Last Podiatry Visit: Doesn't have one Random Glucose: 81 mg/dl HgA1C: 7.0% 09/16/25 [employer]ners Helper Required: No Accompanied by: Self / Same As Patient Allergies lisinopril Allergy (Mild, Verified 10/08/25 11:43) Cough dulaglutide (From Trulicity) Adverse Reaction (Mild, Verified 10/08/25 11:43) Vomiting Medication List - Last Reconciled 10/08/25 by Evy Junior PA-C amlodipine 10 mg PO DAILY blood pressure monitor Monitor blood pressure as directed blood sugar diagnostic (Talento al AulaTouch Verio test strips) Use TID As directed blood-glucose meter (Talento al AulaTouch Verio Meter) As directed to test blood sugar, 999 days ginseng 100 mg PO DAILY glipizide ER 5 mg PO DAILY lancets (Talento al AulaTouch UltraSoft Lancets) DX: E11.9, test blood sugar once a day, 90 days losartan 100 mg PO DAILY 90 days mecobalamin (vitamin B12) 500 mcg PO DAILY metformin 1,000 mg PO BID semaglutide (Ozempic) 0.5 mg (0.736 mL) subcut QWEEK simvastatin 40 mg PO DAILY HPI HPI T2DM: Details: Patient is an 80-year-old male with a significant past medical history of uncontrolled type 2 diabetes, chronic kidney disease, hyperlipidemia and hypertension presenting today for dm review. Endo: Most recent A1c is 7, previously 8.8. He is on metformin 2000 mg day, glipizide 5 mg er and Ozempic 0.5 mg weekly. He was supposed to be on higher dose of ozempic. No low blood sugars Rarely checking blood sugars at home. -trulicity caused vomiting -Januvia is too expensive. -Jardiance is too expensive -he was diagnosed 4 years ago. No fam hx of dm Up to date eye exam had diabetic Education and found this helpful. Nephro: He just followed with nephrology. Avoid NSAIDs. [facility] Medical History (Updated 09/02/25 @ 13:39 by OTTO Hylton) Impacted cerumen Change in mole Neoplasm of skin Type 2 diabetes mellitus without complications Surgical History (Updated 07/30/25 @ 10:46 by Gill Ren MD) Hx of tooth extraction Family History Mother Hyperlipidemia Father Brain cancer Social History (Updated 09/02/25 @ 11:05 by Maria D Lake CMA) Household Members: Spouse and Significant Other Housing: House Alcohol intake: current Alcohol intake frequency: a few times a month Alcohol type: wine Patient Tobacco Use Status: Never used Tobacco e-Cigarette/Vaping Use: Never Used Second Hand Smoke Exposure: No service: No Current occupational status: retired Current occupational exposures/hazards: No Sexual orientation: Unable to collect Gender identity: Unable to collect Cognitive needs: No Hearing needs: No Vision needs: No Physical Exam Const Orientation/consciousness: patient oriented x3 HEENT Ears: hearing grossly normal bilaterally Neck Neck: Yes no lymphadenopathy Thyroid: Thyroid normal Carotids: no bruits Lymphatic: no lymphadenopathy noted Resp Auscultation: clear to auscultation bilaterally Cardio Rate: regular rate Rhythm: regular rhythm Heart sounds: S1 normal heart sound present and S2 normal heart sound present Peripheral pulses: dorsalis pedis present Skin General skin exam: no rashes or lesions noted Neuro General: patient oriented x3, gait normal and no focal motor deficits Extrem Other: Monofilament sensation intact bilaterally. Vibratory sensation intact bilaterally. Skin intact. Toenails slightly thickened General: Yes normal to inspection Results Reviewed Results Reviewed: Laboratory Tests 12/22/24 09/16/25 09/16/25 09:30 10:09 10:16 Creatinine 1.22 Estimated GFR 57 Fasting Glucose 119 H Hemoglobin A1c % 7.0 H Triglycerides 94 Cholesterol 137 LDL Cholesterol, Calc 71 HDL Cholesterol 48 Urine Creatinine 46.81 Urine Microalbumin 8.0 Microalb/Creat Ratio 17.0 Islet Cell Ab Screen NEGATIVE STEPHEN Antibody <5 Assessment & Plan Assessment & Plan (1) Diabetes type 2, uncontrolled: Code(s): E11.65 - Type 2 diabetes mellitus with hyperglycemia Category: Medical Qualifiers: Glycemic state: with hyperglycemia Qualified Code(s): E11.65 - Type 2 diabetes mellitus with hyperglycemia Plan: continue Ozempic to 0.5 mg weekly Continue glipizide 5 mg daily Continue metformin 1000 mg bid recheck labs 3 months (2) HTN (hypertension): Code(s): I10 - Essential (primary) hypertension Category: Medical Qualifiers: Hypertension type: primary hypertension Qualified Code(s): I10 - Essential (primary) hypertension Plan: current current plan Medications: New docusate sodium (Colace) 100 mg PO DAILY PRN 90 caps 0RF constipation Coding Level of Care Code Est Pt Level 4 (01844) Complex visit Add On G2211 Diagnoses Uncontrolled type 2 diabetes mellitus with hyperglycemia E11.65 Glycemic state: with hyperglycemia Primary hypertension I10 Hypertension type: primary hypertension
[2025-10-08 11:50] LABS: Glucose, Whole Blood 81 mg/dL (60-115)
== END 2025-10-08 12:00 | disposition home or self-care (01) ==
LOC: HO.ENCR 11:37
PROVIDERS: PCP Physician Assistant Medical; Visit Provider Physician Assistant
DX: E11.65 Type 2 diabetes mellitus with hyperglycemia (principal); I10 Essential (primary) hypertension

== ENCOUNTER → 2025-10-08 11:37 | Outpatient (BNVA) | payer MEDICARE, SELFPAY | PROVIDERS: PCP Physician Assistant Medical; Visit Provider Physician Assistant | DX: E11.65 Type 2 diabetes mellitus with hyperglycemia (principal); I10 Essential (primary) hypertension | CPT/HCPCS: 82947; 99212 ==